=== PATIENT | female | born 1945 | race Caucasian/White ===

== ENCOUNTER → 2018-03-25 08:28 | Outpatient (CLI) | payer MEDICARE, OTHER, SELFPAY ==
[2018-03-25 08:58] LABS: Add Manual Diff / Slide Review NO; Basophils Percent Auto 0.2 % (0-2); Eosinophils Percent Auto 6.6 % (2-4); Hematocrit 36.6 % (36-46); Hemoglobin 12.6 g/dL (12.0-16.0); Lymphocytes Percent Auto 19.7 % (25-40); Mean Corpuscular HGB Conc 34.3 % (30-36); Mean Corpuscular Hemoglobin 29.8 PG (26-34); Mean Corpuscular Volume 86.7 fL (80-100); Monocytes Percent Auto 6.8 % (3-14); Neutrophils Absolute Auto 3300 /uL (3000-5900); Neutrophils Percent Auto 66.7 % (50-75); Platelet Count 242 X10^3/uL (150-400); Red Blood Cell Count 4.23 X10^6/uL (4.0-5.2); White Blood Cell Count 4.9 X10^3/uL (4.5-11.0)
[2018-03-25 09:23] LABS: Alanine Aminotransferase 44 IU/L (9-52); Albumin 4.4 g/dL (3.5-5.0); Albumin Globulin Ratio 1.3 (1.0-2.8); Alkaline Phosphatase 76 U/L (38-126); Aspartate Aminotransferase 46 IU/L (14-36); BUN Creatinine Ratio 21.3 (6-22); Bilirubin Total 0.4 mg/dL (0.2-1.3); Blood Urea Nitrogen 17 mg/dL (7-17); Calcium 9.6 mg/dL (8.4-10.2); Carbon Dioxide 26 mmol/L (22-32); Chloride 100 mmol/L (98-107); Estimated Glomerular Filt Rate > 60.0 mL/min (>60); Globulin 3.4 g/dL (1.7-4.1); Glucose 170 mg/dL (80-110); HEMOLYSIS < 15 (0-50); Potassium 4.1 mmol/L (3.4-5.1); Sodium 140 mmol/L (137-145); Total Protein 7.8 g/dL (6.3-8.2)
[2018-03-27 15:30] LABS: Cancer Antigen 27.29 27 U/mL (< 38)
== END ==
PROVIDERS: Family Provider Internal Medicine; PCP Internal Medicine; Visit Provider Nurse Practitioner Gerontology
DX: Z85.3 Personal history of malignant neoplasm of breast (principal)
CPT/HCPCS: 36415; 80053; 85025; 86300

== ENCOUNTER 2018-04-01 10:00 | Oncology outpatient (ONC) | payer MEDICARE, OTHER, SELFPAY ==
--- NOTE | 2018-04-01 08:30 | P.PNONC_ITS ---
Assessment and Plan (1) Breast cancer Status: Acute 04/01/18 08:30 The patient is a 73 year old Female who is being seen in the clinic 04/01/2018 for Stage IIIA T2 N2 M0 infiltrating ductal carcinoma on the right side with a 4.8-cm right-sided primary with 4 of 7 nodes positive. It was ER positive, HER- 2/yao negative.She underwent a right mastectomy and was treated with postoperaive AC and Abraxane followed by chest wall radiation. She has been taking letrozole for 9 years now. Plan at this point is to continue for 1 more year. Continue seeing Pain Management for grade 2 neuropathy. Continue compression sleeve as needed for right upper extremity lymphedema. No clinical signs or symptoms on exam today of disease recurrence. CBC, CMP unremarkable aside from mild transaminases. CA 27-29 is within normal limits at 27. Return to clinic in 6 months for provider visit CBC CMP CA 27-29. Most recent bone density screen was April 17, 2016 recommend repeat scan noting patient has had normal bone density. However she is postmenopausal on aromatase inhibitor therapy. 04/01/18 12:39 - Time Spent with Patient 35 mins PN -Subjective Interval history: The patient is a 73 year old Female who is being seen in the clinic 04/01/2018 for Stage IIIA T2 N2 M0 infiltrating ductal carcinoma on the right side with a 4.8-cm right-sided primary with 4 of 7 nodes positive. It was ER positive, HER- 2/yao negative.She underwent a right mastectomy and was treated with postoperaive AC and Abraxane followed by chest wall radiation. She started letrozole in 09/2008, now 9 years, and planned to continue for 10 years. She was treated with Zometa per the [place] protocol, BMD screenings have demonstrated no osteopenia or osteoporosis. Patient presents today with no concerns or complaints, overall feeling well. She does have chronic grade 2 neuropathy for which she sees Pain Management Clinic. She has tried gabapentin in the past she was not able to tolerate more than 1 or 2 tablets a day. Activity tolerance is good, she walks with a group 5 days a week. Appetite is excellent, weight is stable. No breast changed to report. No new lumps or bumps. No headaches. No change with bladder or bowel habits. She also continues to have chronic right upper extremity lymph edema. During the winter months she wears a compression sleeve which helps quite a bit. She states it is too hot in the summer to wear it. Most recent mammogram was January of 2018 which was without evidence of malignancy. Past Medical History The patient's past medical history is significant for: 1. Breast cancer as described above 2. 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 Lin at [facility] in 1997. This was not a thyroidectomy. 3. Hypertension. 4. Hyperlipidemia. 5. History of transaminase elevation. 6. Hypothyroidism. 7. Glucose intolerance. Results - Imaging Additional studies: Procedures Colonoscopy (06/17/10) Hysteroscopy (08/22/13) Other and unspecified total abdominal hysterectomy (09/08/13) Other dilation and curettage (12/08/11) Other removal of both ovaries and tubes at same operative episode (09/08/13) Home Medications and Allergies Home Medications Medication Instructions Recorded Confirmed Type [CMP Estriol cream] 0.2 % VAGINAL SEE INSTRUCTIONS #30 02/14/17 01/21/18 Rx gm letrozole [Femara] 2.5 mg PO QDAY #30 tab 04/13/17 01/21/18 Rx atenolol 50 mg PO QDAY #30 tab 05/17/17 01/21/18 Rx furosemide 20 mg PO QDAY #30 tab 05/17/17 01/21/18 Rx levothyroxine 100 mcg PO QAM #90 tab 06/14/17 01/21/18 Rx Test Strips - Freestyle str NA BID #200 06/20/17 Rx betamethasone, augmented 1 james TOPICAL SEE INSTRUCTIONS #15 07/20/17 01/21/18 Rx gm atorvastatin [Lipitor] 40 mg PO HS #90 tab 08/16/17 01/21/18 Rx clobetasol 0 TOPICAL QDAY #1 tube 11/28/17 01/21/18 Rx famciclovir 250 mg PO QDAY #30 tab 01/14/18 01/21/18 Rx gabapentin 100 mg capsule 100 mg PO BEDTIME 30 Days #30 cap 01/21/18 History hyoscyamine sulfate 0.125 mg tablet 0.125 mg PO BID-QID PRN 01/21/18 History metformin 500 mg tablet 1,000 mg PO BIDCC #360 tab 01/21/18 Rx lisinopril 5 mg PO QDAY #90 tab 03/14/18 Rx Allergies Allergy/AdvReac Type Severity Reaction Status Date / Time levofloxacin [LEVOFLOXACIN] Allergy Intermediate ITCHY HIVES Verified 01/21/18 11:36 vancomycin [VANCOMYCIN] Allergy Intermediate RASH/HIVES Verified 01/21/18 11:36 06/25/17 Sulfa (Sulfonamide Allergy Mild RASH Verified 01/21/18 11:36 Antibiotics) [SULFA (SULFONAMIDE ANTIBIOTICS)] adhesive [ADHESIVE] AdvReac Mild MAYORGA AND Verified 01/21/18 11:36 IRRITATION FROM TAPE oxycodone [OXYCODONE] AdvReac Mild MAKES HER Verified 01/21/18 11:36 SICK Exam Narrative: non toxic appearing - Constitutional positive no acute distress - Routine HEENT Exam Eye: Present: conjunctivae pink. Absent: conjunctival icterus, scleral injection ENT: Present: mucous membranes moist, oropharynx clear - Routine Neck Exam Present: supple. Absent: lymphadenopathy - Routine Chest/Breast/Axilla Exam Chest wall exam standard: Absent: tenderness, mass Breast: Present: right mastectomy. Absent: tenderness, induration, mass, swelling, erythema Axillae: Absent: lymphadenopathy, mass, tenderness - Routine Respiratory Exam Present: Clear to auscultation bilaterally. Absent: rales, rhonchi, wheezes - Routine Cardiovascular Exam Present: RRR, S1, S2. Absent: JVD - Routine Abdominal Exam Present: soft, normoactive bowel sounds. Absent: tenderness, distended, organomegaly Palpation/Percussion: Absent: hepatomegaly, splenomegaly - Routine Extremities Exam Absent: cyanosis, calf tenderness Comments: mild chronic RUE lymphedema - Routine Skin Exam Present: intact. Absent: petechiae
[2018-04-01 12:11] VITALS: BP 137/77; PULSE 80; RESP 18; TEMP 36.2; O2SAT 95
== END 2018-04-02 10:00 | disposition home or self-care (01) ==
LOC: ONC 07-10 09:13
PROVIDERS: Family Provider Internal Medicine; PCP Internal Medicine; Visit Provider Nurse Practitioner Gerontology
DX: C50.911 Malignant neoplasm of unspecified site of right female breast (principal); Z17.0 Estrogen receptor positive status [ER+]; G62.9 Polyneuropathy, unspecified; I89.0 Lymphedema, not elsewhere classified; Z79.811 Long term (current) use of aromatase inhibitors
CPT/HCPCS: 99214

== ENCOUNTER → 2018-04-15 07:16 | Outpatient (CLI) | payer MEDICARE, OTHER, SELFPAY ==
[2018-04-15 08:42] LABS: Hemoglobin A1C% w Est Avg Glu 6.9 % (4.0-6.0)
[2018-04-15 09:42] LABS: Creatinine Urine Random 14.5 mg/dL
[2018-04-15 09:49] LABS: Microalbumi Creatinin Ratio Ur 41.3 ug/mg CR (<30); Microalbumin Urine Random < 0.6 mg/dL (0-1.6)
== END ==
PROVIDERS: Family Provider Internal Medicine; PCP Internal Medicine; Visit Provider Internal Medicine
DX: E11.65 Type 2 diabetes mellitus with hyperglycemia (principal)
CPT/HCPCS: 36415; 82043; 82570; 83036

== ENCOUNTER → 2018-06-19 12:50 | Outpatient (CLI) | payer MEDICARE, OTHER, SELFPAY | PROVIDERS: Family Provider Internal Medicine; PCP Internal Medicine; Visit Provider Nurse Practitioner Gerontology | DX: E11.9 Type 2 diabetes mellitus without complications (principal); Z78.0 Asymptomatic menopausal state; Z85.3 Personal history of malignant neoplasm of breast; Z90.722 Acquired absence of ovaries, bilateral; Z87.891 Personal history of nicotine dependence | CPT/HCPCS: 77080 ==

== ENCOUNTER → 2018-07-22 07:32 | Outpatient (CLI) | payer MEDICARE, OTHER, SELFPAY ==
[2018-07-22 09:06] LABS: Hemoglobin A1C% w Est Avg Glu 7.4 % (4.0-6.0)
[2018-07-22 09:17] LABS: BUN Creatinine Ratio 23.8 (6-22); Blood Urea Nitrogen 19 mg/dL (7-17); Calcium 9.4 mg/dL (8.4-10.2); Carbon Dioxide 30 mmol/L (22-32); Chloride 99 mmol/L (98-107); Estimated Glomerular Filt Rate > 60.0 mL/min (>60); Glucose 144 mg/dL (80-110); HEMOLYSIS < 15 (0-50); Potassium 4.2 mmol/L (3.4-5.1); Sodium 142 mmol/L (137-145)
== END ==
PROVIDERS: Family Provider Internal Medicine; PCP Internal Medicine; Visit Provider Ophthalmology
DX: E11.9 Type 2 diabetes mellitus without complications (principal); Z01.812 Encounter for preprocedural laboratory examination; E11.65 Type 2 diabetes mellitus with hyperglycemia
CPT/HCPCS: 36415; 80048; 83036

== ENCOUNTER → 2018-08-19 13:22 | Outpatient (CLI) | payer MEDICARE, OTHER, SELFPAY ==
[2018-08-19 14:58] LABS: BUN Creatinine Ratio 21.3 (6-22); Blood Urea Nitrogen 17 mg/dL (7-17); Estimated Glomerular Filt Rate > 60.0 mL/min (>60)
== END ==
PROVIDERS: Family Provider Internal Medicine; PCP Internal Medicine; Visit Provider Ophthalmology
DX: Z01.812 Encounter for preprocedural laboratory examination (principal)
CPT/HCPCS: 36415; 82565; 84520

== ENCOUNTER → 2018-08-23 15:39 | Outpatient (CLI) | payer MEDICARE, OTHER, SELFPAY ==
--- NOTE | 2018-08-23 | DI.MRI.S_ITS ---
PROCEDURE: MR ORBITS FACE NECK WO/W CON INDICATIONS: VERICOSE VEINS TECHNIQUE: Noncontrast sagittal T1 spin echo, axial FLAIR, axial gradient echo, axial diffusion and ADC acquired through the brain. Coronal STIR, thin-slice axial T1 spin echo through the orbits. After the administration of contrast, thin-slice axial and coronal T1 spin echo with fat saturation through the orbits, axial T1 spin echo with fat saturation through the brain. COMPARISON: [facility], MR, MR ANGIO HEAD WO CON, 08/23/2018, 15:59. FINDINGS: Image quality: Excellent. Orbits: Globes are symmetrical. The optic nerves are normal in size, without abnormal signal or enhancement. No retrobulbar masses or fat abnormalities. The extra-ocular muscles are normal and symmetric in appearance. Lacrimal glands are normal. Optic chiasm is normal. Periorbital soft tissues appear normal. CSF spaces: Ventricles are normal in size and shape. Basal cisterns are patent. No extra-axial fluid collections. Brain: No intracranial bleeds or mass effects. No abnormal intracranial enhancement. Lowery-white matter interface is intact. Diffusion weighted images demonstrate no acute ischemic insults. Pituitary gland appears normal, without sellar or suprasellar masses. Brainstem appears normal. Normal intravascular flow voids are present. Skull and face: Calvarial marrow is normal in signal. Sinuses: Sinuses and mastoids are clear. IMPRESSION: 1. No acute intracranial process. 2. Orbits are unremarkable. No visualized abnormal vascular structures. Dictated by: Sharron Jett M.D. on 08/28/2018 at 13:29 Approved by: Sharron Jett M.D. on 08/28/2018 at 13:43
--- NOTE | 2018-08-23 17:26 | DI.MRI.S_ITS ---
PROCEDURE: MR ANGIO HEAD WO CON INDICATIONS: VARICOSE VEINS TECHNIQUE: Noncontrast axial 3-D [id number] MR angiogram, with 3-dimensional maximum intensity projection (MIP) reformats of the internal carotid arteries and posterior circulation then performed. COMPARISON: None. FINDINGS: Image quality: Excellent. Anterior circulation: Intracranial internal carotid arteries demonstrate normal size and intraluminal flow signal. The flow within the paired anterior cerebral arteries is normal and symmetric. The flow within the middle cerebral arteries is normal and symmetric. The anterior communicating artery is seen. No stenoses, occlusions, or aneurysms. Posterior circulation: Visualized portions of the vertebral arteries demonstrate normal caliber, and join to form a normal appearing basilar artery. The flow within the posterior cerebral arteries is normal and symmetric. No stenoses, occlusions, or aneurysms. IMPRESSION: 1. No areas of hemodynamically significant stenosis, vascular occlusion or aneurysmal dilation within the anterior or posterior circulation. Dictated by: Sharron Jett M.D. on 08/26/2018 at 8:22 Approved by: Sharron Jett M.D. on 08/26/2018 at 9:40
== END ==
PROVIDERS: Family Provider Internal Medicine; PCP Internal Medicine; Visit Provider Ophthalmology
DX: H05.122 Orbital myositis, left orbit (principal); I86.8 Varicose veins of other specified sites
CPT/HCPCS: 70543; 70544; A9579

== ENCOUNTER → 2018-09-11 08:30 | Outpatient (CLI) | payer MEDICARE, OTHER, SELFPAY ==
[2018-09-11 09:05] LABS: Add Manual Diff / Slide Review NO; Basophils Percent Auto 1.4 % (0-2); Eosinophils Percent Auto 3.7 % (2-4); Hemoglobin 13.1 g/dL (12.0-16.0); Mean Corpuscular HGB Conc 33.6 % (30-36); Mean Corpuscular Hemoglobin 29.3 PG (26-34); Mean Corpuscular Volume 87.4 fL (80-100); Monocytes Percent Auto 7.1 % (3-14); Neutrophils Absolute Auto 3500 /uL (1500-7000); Neutrophils Percent Auto 64.8 % (50-75); Platelet Count 269 X10^3/uL (150-400); Red Blood Cell Count 4.47 X10^6/uL (4.0-5.2); Red Cell Distribution Width 13.2 % (11.6-14.8); White Blood Cell Count 5.4 X10^3/uL (4.5-11.0)
[2018-09-11 09:12] LABS: Alanine Aminotransferase 49 IU/L (9-52); Albumin 4.7 g/dL (3.5-5.0); Albumin Globulin Ratio 1.4 (1.0-2.8); Alkaline Phosphatase 77 U/L (38-126); Aspartate Aminotransferase 42 IU/L (14-36); BUN Creatinine Ratio 22.5 (6-22); Bilirubin Total 0.4 mg/dL (0.2-1.3); Blood Urea Nitrogen 18 mg/dL (7-17); Calcium 9.7 mg/dL (8.4-10.2); Carbon Dioxide 28 mmol/L (22-32); Chloride 102 mmol/L (98-107); Estimated Glomerular Filt Rate > 60.0 mL/min (>60); Globulin 3.4 g/dL (1.7-4.1); Glucose 173 mg/dL (80-110); HEMOLYSIS < 15 (0-50); Potassium 4.6 mmol/L (3.4-5.1); Sodium 142 mmol/L (137-145); Total Protein 8.1 g/dL (6.3-8.2)
[2018-09-12 15:21] LABS: Cancer Antigen 27.29 31 U/mL (< 38)
== END ==
PROVIDERS: Family Provider Internal Medicine; PCP Internal Medicine; Visit Provider Nurse Practitioner Gerontology
DX: C50.911 Malignant neoplasm of unspecified site of right female breast (principal)
CPT/HCPCS: 36415; 80053; 85025; 86300

== ENCOUNTER → 2018-10-18 07:32 | Outpatient (CLI) | payer MEDICARE, OTHER, SELFPAY ==
[2018-10-18 08:45] LABS: Hemoglobin A1C% w Est Avg Glu 6.8 % (4.0-6.0)
[2018-10-18 08:54] LABS: BUN Creatinine Ratio 23.8 (6-22); Blood Urea Nitrogen 19 mg/dL (7-17); Calcium 10.1 mg/dL (8.4-10.2); Carbon Dioxide 29 mmol/L (22-32); Chloride 101 mmol/L (98-107); Estimated Glomerular Filt Rate > 60.0 mL/min (>60); Glucose 131 mg/dL (80-110); HEMOLYSIS < 15 (0-50); Potassium 4.8 mmol/L (3.4-5.1); Sodium 140 mmol/L (137-145)
== END ==
PROVIDERS: PCP Internal Medicine; Visit Provider Internal Medicine
DX: E11.65 Type 2 diabetes mellitus with hyperglycemia (principal); I10 Essential (primary) hypertension
CPT/HCPCS: 36415; 80048; 83036

== ENCOUNTER → 2018-12-02 15:12 | Outpatient (CLI) | payer MEDICARE, OTHER, SELFPAY ==
--- NOTE | 2018-12-02 | DI.MG.S_ITS ---
UNILATERAL LEFT DIGITAL SCREENING MAMMOGRAM 3D/2D WITH CAD POST MASTECTOMY: 12/02/2018 CLINICAL: Routine screening. Personal history of right breast cancer. Comparison is made to exams dated: 11/22/2017 mammogram, 11/16/2016 mammogram, 11/15/2015 mammogram, 11/12/2014 mammogram, and 11/11/2013 mammogram - [facility]. The tissue of left breast is heterogeneously dense. This may lower the sensitivity of mammography. Current study was also evaluated with a Computer Aided Detection (CAD) system. There is a mole marker on the left breast. No significant masses, calcifications, or other findings are seen in the breast. There has been no significant interval change. IMPRESSION: NEGATIVE There is no mammographic evidence of malignancy. A 1 year screening mammogram is recommended. This exam was interpreted at Station ID: [id number]. NOTE: For mammograms, a report in lay terms will be sent to the patient. Approximately 15% of breast malignancies will not be visualized mammographically. In the management of a palpable breast mass, a negative mammogram must not discourage biopsy of a clinically suspicious lesion. Electronically Signed By: Laureano osborne/penyoni:12/02/2018 18:52:27 copy to: Elise Mauro copy to: BECKI GARCIA letter sent: Normal Exam ACR BI-RADS Category 1: Negative 3341F
== END ==
PROVIDERS: PCP Internal Medicine; Visit Provider Internal Medicine
DX: Z12.31 Encounter for screening mammogram for malignant neoplasm of breast (principal); Z85.3 Personal history of malignant neoplasm of breast
CPT/HCPCS: 77063; 77067

== ENCOUNTER → 2019-01-31 07:31 | Outpatient (CLI) | payer MEDICARE, OTHER, SELFPAY ==
[2019-01-31 09:24] LABS: BUN Creatinine Ratio 21.1 (6-22); Blood Urea Nitrogen 19 mg/dL (7-17); Calcium 9.3 mg/dL (8.4-10.2); Carbon Dioxide 32 mmol/L (22-32); Chloride 98 mmol/L (98-107); Estimated Glomerular Filt Rate > 60.0 mL/min (>60); Glucose 145 mg/dL (80-110); HEMOLYSIS < 15 (0-50); Potassium 5.1 mmol/L (3.4-5.1); Sodium 138 mmol/L (137-145)
== END ==
PROVIDERS: PCP Internal Medicine; Visit Provider Internal Medicine
DX: E11.65 Type 2 diabetes mellitus with hyperglycemia (principal)
CPT/HCPCS: 36415; 80048; 83036

== ENCOUNTER → 2019-07-10 07:34 | Outpatient (CLI) | payer MEDICARE, OTHER, SELFPAY ==
[2019-07-10 08:51] LABS: Erythrocyte Sedimentation Rate 18 MM/HR (0-20); Hematocrit 27.3 % (36-46); Hemoglobin 9.3 g/dL (12.0-16.0); Mean Corpuscular Hemoglobin 28.8 PG (26-34); Mean Corpuscular Volume 84.9 fL (80-100); Red Blood Cell Count 3.22 X10^6/uL (4.0-5.2); Red Cell Distribution Width 13.4 % (11.6-14.8); White Blood Cell Count 3.4 X10^3/uL (4.5-11.0)
[2019-07-10 08:52] LABS: Add Manual Diff / Slide Review NO; Basophils Absolute Auto 0 /uL (0-100); Basophils Percent Auto 2.1 % (0-2); Eosinophils Absolute Auto 0 /uL (0-450); Eosinophils Percent Auto 4.1 % (2-4); Lymphocytes Absolute Auto 1 /uL (1100-4500); Lymphocytes Percent Auto 24.3 % (25-40); Monocytes Absolute Auto 0 /uL (0-900); Monocytes Percent Auto 10.3 % (3-14); Neutrophils Absolute Auto 2 /uL (1500-7000); Neutrophils Percent Auto 59.2 % (50-75); Platelet Count 164 X10^3/uL (150-400)
[2019-07-10 08:53] LABS: Alanine Aminotransferase 42 IU/L (9-52); Albumin 4.6 g/dL (3.5-5.0); Albumin Globulin Ratio 1.4 (1.0-2.8); Alkaline Phosphatase 75 U/L (38-126); Aspartate Aminotransferase 38 IU/L (14-36); Bilirubin Total 0.5 mg/dL (0.2-1.3); Blood Urea Nitrogen 16 mg/dL (7-17); Calcium 9.5 mg/dL (8.4-10.2); Carbon Dioxide 29 mmol/L (22-32); Chloride 101 mmol/L (98-107); Estimated Glomerular Filt Rate > 60.0 mL/min (>60); Globulin 3.3 g/dL (1.7-4.1); Glucose 130 mg/dL (80-110); HEMOLYSIS < 15 (0-50); Potassium 4.2 mmol/L (3.4-5.1); Sodium 141 mmol/L (137-145); Total Protein 7.9 g/dL (6.3-8.2)
[2019-07-10 11:36] LABS: Hemoglobin A1C% w Est Avg Glu 6.7 % (4.0-6.0)
== END ==
PROVIDERS: Hospitalist; PCP Internal Medicine; Visit Provider Internal Medicine
DX: E11.65 Type 2 diabetes mellitus with hyperglycemia (principal); M79.89 Other specified soft tissue disorders
CPT/HCPCS: 36415; 80053; 83036; 85025; 85651

== ENCOUNTER → 2019-07-14 14:06 | Outpatient (CLI) | payer MEDICARE, OTHER, SELFPAY ==
[2019-07-14 14:47] LABS: Hematocrit 37.7 % (36-46); Hemoglobin 12.7 g/dL (12.0-16.0)
[2019-07-14 15:44] LABS: HEMOLYSIS < 15 (0-50); Iron 74 ug/dL (37-170)
[2019-07-14 15:55] LABS: Percent Iron Saturation 18 % (15-50); Total Iron Binding Capacity 409 ug/dL (265-497); Transferrin 350 mg/dL (206-381)
[2019-07-14 16:02] LABS: Free T4, Direct Thyroxine 1.52 ng/dL (0.78-2.19)
[2019-07-14 16:16] LABS: Thyroid Stimulating Hormone 1.92 uIU/mL (0.47-4.68)
[2019-07-14 16:53] LABS: Folate > 20.0 ng/mL (2.76-20.0); Vitamin B12 662 pg/mL (239-931)
[2019-07-16 14:35] LABS: Haptoglobin 190 mg/dL (43-212)
== END ==
PROVIDERS: PCP Internal Medicine; Visit Provider Internal Medicine
DX: D64.9 Anemia, unspecified (principal); E11.9 Type 2 diabetes mellitus without complications; I10 Essential (primary) hypertension; E03.9 Hypothyroidism, unspecified
CPT/HCPCS: 36415; 82607; 82746; 83010; 83540; 83550; 84439; 84443; 85014; 85018; 85045

== ENCOUNTER → 2019-09-22 16:54 | Outpatient (CLI) | payer MEDICARE, OTHER, SELFPAY | PROVIDERS: PCP Internal Medicine; Visit Provider Specialist | DX: R32 Unspecified urinary incontinence (principal) | CPT/HCPCS: 87086 ==

== ENCOUNTER → 2019-11-20 08:31 | Outpatient (CLI) | payer MEDICARE, OTHER, SELFPAY ==
[2019-11-20 09:46] LABS: Hemoglobin A1C% w Est Avg Glu 6.7 % (4.0-6.0)
[2019-11-20 10:04] LABS: BUN Creatinine Ratio 16.7 (6-22); Blood Urea Nitrogen 14 mg/dL (7-17); Calcium 10.2 mg/dL (8.4-10.2); Carbon Dioxide 29 mmol/L (22-32); Chloride 100 mmol/L (98-107); Estimated Glomerular Filt Rate > 60.0 mL/min (>60); Glucose 162 mg/dL (80-110); HEMOLYSIS < 15 (0-50); Potassium 4.2 mmol/L (3.4-5.1); Sodium 140 mmol/L (137-145)
[2019-11-20 10:51] LABS: Free T4, Direct Thyroxine 1.29 ng/dL (0.78-2.19)
[2019-11-20 11:04] LABS: Thyroid Stimulating Hormone 4.39 uIU/mL (0.47-4.68)
== END ==
PROVIDERS: PCP Internal Medicine; Referring Provider Internal Medicine; Visit Provider Internal Medicine
DX: E03.9 Hypothyroidism, unspecified (principal); E11.9 Type 2 diabetes mellitus without complications; I10 Essential (primary) hypertension
CPT/HCPCS: 36415; 80048; 83036; 84439; 84443

== ENCOUNTER → 2020-02-07 08:08 | Outpatient (CLI) | payer MEDICARE, OTHER, SELFPAY ==
--- NOTE | 2020-02-07 08:10 | DI.MG.S_ITS ---
UNILATERAL LEFT DIGITAL SCREENING MAMMOGRAM 3D/2D WITH CAD POST MASTECTOMY: 02/07/2020 CLINICAL: Routine screening. Personal history of left breast cancer. Comparison is made to exams dated: 12/02/2018 mammogram, 11/22/2017 mammogram, and 11/16/2016 mammogram - [facility]. The tissue of left breast is heterogeneously dense. This may lower the sensitivity of mammography. Current study was also evaluated with a Computer Aided Detection (CAD) system. There are benign post operative findings in the left breast. There is a mole marker on the left breast. No significant masses, calcifications, or other findings are seen in the breast. There has been no significant interval change. IMPRESSION: There is no mammographic evidence of malignancy. A 1 year screening mammogram is recommended. This exam was interpreted at Station ID: [id number]. NOTE: For mammograms, a report in lay terms will be sent to the patient. Approximately 15% of breast malignancies will not be visualized mammographically. In the management of a palpable breast mass, a negative mammogram must not discourage biopsy of a clinically suspicious lesion. Electronically Signed By: Jose haider/rowan:02/09/2020 07:35:34 copy to: LAUREL MCKOY copy to: Jatin Camarena letter sent: Normal Exam ACR BI-RADS Category 2: Benign Finding(s) 3342F
== END ==
PROVIDERS: PCP Internal Medicine; Referring Provider Internal Medicine; Visit Provider Internal Medicine
DX: Z12.31 Encounter for screening mammogram for malignant neoplasm of breast (principal); Z85.3 Personal history of malignant neoplasm of breast
CPT/HCPCS: 77063; 77067

== ENCOUNTER → 2020-06-04 07:33 | Outpatient (CLI) | payer MEDICARE, OTHER, SELFPAY ==
[2020-06-04 09:26] LABS: Alanine Aminotransferase 26 IU/L (<35); Albumin 4.1 g/dL (3.5-5.0); Albumin Globulin Ratio 1.2 (1.0-2.8); Alkaline Phosphatase 75 U/L (38-126); Aspartate Aminotransferase 27 IU/L (14-36); BUN Creatinine Ratio 15.2 (6-22); Bilirubin Total 0.5 mg/dL (0.2-1.3); Blood Urea Nitrogen 12 mg/dL (7-17); Calcium 9.2 mg/dL (8.4-10.2); Carbon Dioxide 30 mmol/L (22-32); Chloride 102 mmol/L (98-107); Cholesterol 167 mg/dL (140-199); Estimated Glomerular Filt Rate > 60.0 mL/min (>60); Globulin 3.3 g/dL (1.7-4.1); Glucose 116 mg/dL (80-110); HDL Cholesterol 35 mg/dL (40-60); HEMOLYSIS < 15 (0-50); LDL Cholesterol Calculated 74 mg/dL (<100); Potassium 4.5 mmol/L (3.4-5.1); Sodium 141 mmol/L (137-145); Total Protein 7.4 g/dL (6.3-8.2); Triglycerides 292 mg/dL (35-150)
== END ==
PROVIDERS: PCP Internal Medicine; Referring Provider Internal Medicine; Visit Provider Internal Medicine
DX: E03.9 Hypothyroidism, unspecified (principal); E11.9 Type 2 diabetes mellitus without complications; E78.2 Mixed hyperlipidemia; I10 Essential (primary) hypertension
CPT/HCPCS: 36415; 80053; 80061; 83036

== ENCOUNTER 2020-07-23 14:05 | Emergency (ER) | payer MEDICARE, OTHER, SELFPAY ==
[2020-07-23] VITALS (10 sets, daily range): BP systolic 128–174; BP diastolic 59–74; PULSE 77–91; RESP 14; TEMP 38.6; O2SAT 90–97; BMI 24.3
[2020-07-23] MEDS: ACETAMINOPHEN 325 MG TABLET 975 MG PO (15:56)
[2020-07-23 16:01] LABS: Add Manual Diff / Slide Review NO; Basophils Absolute Auto 0 /uL (0-100); Basophils Percent Auto 0.4 % (0-2); Eosinophils Absolute Auto 0 /uL (0-450); Eosinophils Percent Auto 0.3 % (2-4); Hematocrit 36.4 % (36-46); Hemoglobin 12.1 g/dL (12.0-16.0); Lymphocytes Absolute Auto 700 /uL (1100-4500); Lymphocytes Percent Auto 7.2 % (25-40); Mean Corpuscular HGB Conc 33.2 % (30-36); Mean Corpuscular Hemoglobin 28.9 PG (26-34); Mean Corpuscular Volume 87.1 fL (80-100); Monocytes Absolute Auto 500 /uL (0-900); Monocytes Percent Auto 4.8 % (3-14); Neutrophils Absolute Auto 8700 /uL (1500-7000); Neutrophils Percent Auto 87.3 % (50-75); Platelet Count 223 X10^3/uL (150-400); Red Blood Cell Count 4.18 X10^6/uL (4.0-5.2); Red Cell Distribution Width 12.7 % (11.6-14.8)
[2020-07-23 16:18] LABS: Lactate (Lactic Acid) 1.8 mmol/L (0.7-2.1)
[2020-07-23 16:20] LABS: Alanine Aminotransferase 26 IU/L (<35); Albumin 4.3 g/dL (3.5-5.0); Albumin Globulin Ratio 1.2 (1.0-2.8); Alkaline Phosphatase 65 U/L (38-126); Aspartate Aminotransferase 29 IU/L (14-36); BUN Creatinine Ratio 20.9 (6-22); Bilirubin Total 0.7 mg/dL (0.2-1.3); Blood Urea Nitrogen 18 mg/dL (7-17); Calcium 9.1 mg/dL (8.4-10.2); Carbon Dioxide 30 mmol/L (22-32); Chloride 101 mmol/L (98-107); Estimated Glomerular Filt Rate > 60.0 mL/min (>60); Globulin 3.6 g/dL (1.7-4.1); Glucose 121 mg/dL (80-110); HEMOLYSIS < 15 (0-50); Potassium 3.8 mmol/L (3.4-5.1); Sodium 136 mmol/L (137-145); Total Protein 7.9 g/dL (6.3-8.2)
--- NOTE | 2020-07-23 16:24 | ED_ITS ---
HPI - Extremity Problem General Chief complaint: Extremity Problem,Nontraumatic Stated complaint: R arm swelling and red, fever Time Seen by Provider: 07/23/20 15:43 Source: patient Mode of arrival: Ambulatory Limitations: no limitations History of Present Illness HPI Narrative: Patient is a 75-year-old female history of breast cancer and recurring right arm cellulitis. She said she develops fever right arm swelling and redness last evening. She is currently febrile here at 101.5. She has no numbness or tingling. She denies any chest pain cough shortness of breath or abdominal pain. She says this is similar to all of her previous episodes. She can not remember what antibiotic she was treated with previously however it was a pill and she got to be home. She also has history of sepsis. MD Complaint: extremity swelling Onset (ago): day(s) (1) Location: right and upper extremity Related Data Previous Rx's Medication Instructions Recorded [CMP Estriol cream] 1 applictn VAGINAL .COMPLEX #30 09/18/18 gram hyoscyamine sulfate 0.125 mg See Rx Instructions .ROUTE 08/14/19 sublingual tablet .COMPLEX #30 each atenolol 50 mg tablet 50 mg PO QDAY #90 tab 09/08/19 estradiol 10 mcg vaginal tablet 10 mcg VAG 2XW #24 tab 10/14/19 gabapentin 100 mg capsule 300 mg PO BEDTIME #270 cap 11/17/19 betamethasone, augmented 0.05 % 1 applictn TOPICAL SEE 12/26/19 topical ointment INSTRUCTIONS #50 gram metformin 500 mg tablet 1,000 mg PO BID #360 tab 01/12/20 famciclovir 250 mg tablet 250 mg PO .qd #30 tab 02/18/20 atorvastatin 40 mg tablet 40 mg PO HS #90 tab 06/11/20 furosemide 20 mg tablet 20 mg PO DAILY #90 tab 06/11/20 levothyroxine 100 mcg tablet See Rx Instructions .ROUTE 06/11/20 .COMPLEX #90 tablet lisinopril 20 mg tablet 20 mg PO DAILY #90 tab 06/11/20 doxycycline hyclate 100 mg PO BID #20 cap 07/23/20 Allergies Allergy/AdvReac Type Severity Reaction Status Date / Time levofloxacin [LEVOFLOXACIN] Allergy Intermediate ITCHY HIVES Verified 07/23/20 14:28 vancomycin [VANCOMYCIN] Allergy Intermediate RASH/HIVES Verified 07/23/20 14:28 06/25/17 Sulfa (Sulfonamide Allergy Mild RASH Verified 07/23/20 14:28 Antibiotics) [SULFA (SULFONAMIDE ANTIBIOTICS)] adhesive [ADHESIVE] AdvReac Mild MAYORGA AND Verified 07/23/20 14:28 IRRITATION FROM TAPE oxycodone [OXYCODONE] AdvReac Mild MAKES HER Verified 07/23/20 14:28 SICK Review of Systems Review of Systems Narrative: GENERAL: Denies chills, fatigue, malaise, fever, sweats, travel HEENT: Denies sinus pain, ear pain, sore throat, difficulty swallowing, neck pain RESPIRATORY: Denies dyspnea, cough, wheezing, hemoptysis, sputum. CARDIOVASCULAR: Denies chest pain, palpitations, orthopnea, edema GASTROINTESTINAL: Denies nausea, vomiting, abdominal pain, diarrhea, constipation, melena. : Denies dysuria, frequency, incontinence, hematuria, urinary retention, flank pain. MUSCULOSKELETAL: Denies weakness, joint pain, or bony pain SKIN: See HPI NEUROLOGIC: Denies weakness, dizziness, headache, numbness, change in speech, confusion PSYCHIATRIC: No concerning psychosocial issues. 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) Irritable bowel syndrome (Chronic 09/22/14) Lymphedema of upper extremity (Chronic 07/24/14) Measles (Resolved) Mixed hyperlipidemia (Chronic 06/25/15) Peripheral neuropathy (Chronic) Personal history of breast cancer (Chronic 2007) Rubella (Resolved) Type 2 diabetes mellitus with hyperglycemia, without long-term current use of insulin (Chronic 01/15/17) Vulvovaginitis (Chronic 04/04/17) Surgical History Anesthesia (Resolved) History of cataract surgery (Resolved 2007) History of colonoscopy (Resolved 06/2010) History of thyroidectomy (Resolved 05/1988) History of total mastectomy (Resolved 11/28/07) Status post delivery (Resolved 1964) Status post delivery (Resolved 1969) Status post hysterectomy (Resolved 09/09/13) Family History Brother Age: 91 Hypertension Child Age: 50 Hypothyroidism Father Coronary atherosclerosis Hypertension High cholesterol Aneurysm Mother Hypertension Liver disease Grandmother Diabetes mellitus Social History marital status: number of children: 2 household members: spouse lives independently: Yes caregiver/support person: No housing: house pets and animals: Yes education level: college (4 years) 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, 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: [employer] travel history: over 6 months ago ([place], no longer travel) leisure activities: exercise (Walking), 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, TV) Smoking Status: Former smoker Tobacco: How many years used: 20 Smokeless tobacco user: other (Cigarettes) quit status: quit date established (Unsure of date.) second hand exposure: Yes alcohol intake: current (Very little.) substance use type: does not use Smoking Status: Former smoker alcohol intake frequency: holidays/special occasions only Substance Use Type: does not use Exam Initial Vital Signs Initial Vital Signs: Vital Signs Temperature 101.5 F H 07/23/20 14:26 Pulse Rate 89 07/23/20 14:26 Respiratory Rate 14 07/23/20 14:26 Blood Pressure 174/74 H 07/23/20 14:26 Pulse Oximetry 95 07/23/20 14:26 GENERAL: Well-appearing, well-nourished and in no acute distress. HEENT: Head atraumatic,EOMI, pupils reactive, face symmetric, moist mucous membranes CARDIOVASCULAR: Regular rate and rhythm without murmurs, rubs or gallops. RESPIRATORY: Breath sounds equal bilaterally, no wheezes rales or rhonchi. ABDOMEN: Soft, nontender. Normoactive bowel sounds all 4 quadrants. No guarding or rebound. EXTREMITIES: Normal range of motion, no clubbing or edema. Neurovascularly intact NEUROLOGICAL: Alert and oriented x4.Normal gait and speech. SKIN: Right arm erythema quite diffuse blanchable Course Orders Ordered: Discontinued Medications Acetaminophen (Tylenol) 975 mg PO NOW ONE Stop: 07/23/20 15:47 Last Admin: 07/23/20 15:56 Dose: 975 mg Documented by: ABDELRAHMAN Vital Signs Vital signs: Vital Signs - 8 hr 07/23/20 14:26 07/23/20 15:19 07/23/20 15:55 Temperature 101.5 F H Pulse Rate 89 91 H 86 Respiratory Rate 14 Blood Pressure 174/74 H 146/66 H Pulse Oximetry 95 93 90 L 07/23/20 15:56 07/23/20 16:00 07/23/20 16:21 Temperature Pulse Rate 84 84 85 Respiratory Rate Blood Pressure 143/64 H 158/67 H Pulse Oximetry 92 96 97 07/23/20 16:30 07/23/20 16:31 07/23/20 17:00 Temperature Pulse Rate 81 77 77 Respiratory Rate Blood Pressure 128/60 Pulse Oximetry 94 94 92 07/23/20 17:01 Temperature Pulse Rate 80 Respiratory Rate Blood Pressure 134/59 L Pulse Oximetry 94 MDM - Extremity (Nontraumatic) Lab Data Attestation: I reviewed the patient's lab results. Result diagrams: 07/23/20 15:54 07/23/20 15:54 Labs: Lab Results 07/23/20 07/23/20 07/23/20 Range/Units 15:54 15:54 15:54 WBC 10.0 (4.5-11.0) X10^3/uL RBC 4.18 (4.0-5.2) X10^6/uL Hgb 12.1 (12.0-16.0) g/dL Hct 36.4 (36-46) % MCV 87.1 (80-100) fL MCH 28.9 (26-34) PG MCHC 33.2 (30-36) % RDW 12.7 (11.6-14.8) % Plt Count 223 (150-400) X10^3/uL Neut % (Auto) 87.3 H (50-75) % Lymph % (Auto) 7.2 L (25-40) % Jennings % (Auto) 4.8 (3-14) % Eos % (Auto) 0.3 L (2-4) % Baso % (Auto) 0.4 (0-2) % Neut # (Auto) 8700 H (0196-5198) /uL Lymph # (Auto) 700 L (0384-0061) /uL Jennings # (Auto) 500 (0-900) /uL Eos # (Auto) 0 (0-450) /uL Baso # (Auto) 0 (0-100) /uL Sodium 136 L (137-145) mmol/L Potassium 3.8 (3.4-5.1) mmol/L Chloride 101 (98-107) mmol/L Carbon Dioxide 30 (22-32) mmol/L BUN 18 H (7-17) mg/dL Creatinine 0.86 (0.52-1.04) mg/dL Estimated GFR > 60.0 (>60) mL/min BUN/Creatinine Ratio 20.9 (6-22) Glucose 121 H (80-110) mg/dL Lactate (0.7-2.1) mmol/L Calcium 9.1 (8.4-10.2) mg/dL Total Bilirubin 0.7 (0.2-1.3) mg/dL AST 29 (14-36) IU/L ALT 26 (<35) IU/L Alkaline Phosphatase 65 (38-126) U/L Total Protein 7.9 (6.3-8.2) g/dL Albumin 4.3 (3.5-5.0) g/dL Globulin 3.6 (1.7-4.1) g/dL Albumin/Globulin Ratio 1.2 (1.0-2.8) Procalcitonin < 0.05 (<0.5) ng/mL Urine Color Urine Appearance Urine pH (4.5-8.0) Ur Specific [place] (1.000-1.035) Urine Protein (Negative) Urine Glucose (UA) (Negative) g/dL Urine Ketones (NEGATIVE) Urine Occult Blood (Negative) Urine Nitrate (Negative) Urine Bilirubin (NEGATIVE) Urine Urobilinogen (0.2) E.U./dL Ur Leukocyte Esterase (NEGATIVE) Urine RBC (0-5/HPF) Urine WBC (0-5/HPF) Ur Squamous Epith Cells (0-5/HPF) Urine Bacteria (None) Urine Mucus (Negative) Ur Culture Indicated? 07/23/20 07/23/20 Range/Units 15:54 16:24 WBC (4.5-11.0) X10^3/uL RBC (4.0-5.2) X10^6/uL Hgb (12.0-16.0) g/dL Hct (36-46) % MCV (80-100) fL MCH (26-34) PG MCHC (30-36) % RDW (11.6-14.8) % Plt Count (150-400) X10^3/uL Neut % (Auto) (50-75) % Lymph % (Auto) (25-40) % Jennings % (Auto) (3-14) % Eos % (Auto) (2-4) % Baso % (Auto) (0-2) % Neut # (Auto) (1347-8852) /uL Lymph # (Auto) (3480-2534) /uL Jennings # (Auto) (0-900) /uL Eos # (Auto) (0-450) /uL Baso # (Auto) (0-100) /uL Sodium (137-145) mmol/L Potassium (3.4-5.1) mmol/L Chloride (98-107) mmol/L Carbon Dioxide (22-32) mmol/L BUN (7-17) mg/dL Creatinine (0.52-1.04) mg/dL Estimated GFR (>60) mL/min BUN/Creatinine Ratio (6-22) Glucose (80-110) mg/dL Lactate 1.8 (0.7-2.1) mmol/L Calcium (8.4-10.2) mg/dL Total Bilirubin (0.2-1.3) mg/dL AST (14-36) IU/L ALT (<35) IU/L Alkaline Phosphatase (38-126) U/L Total Protein (6.3-8.2) g/dL Albumin (3.5-5.0) g/dL Globulin (1.7-4.1) g/dL Albumin/Globulin Ratio (1.0-2.8) Procalcitonin (<0.5) ng/mL Urine Color Yellow Urine Appearance Slightly cloudy Urine pH 5.0 (4.5-8.0) Ur Specific [place] 1.020 (1.000-1.035) Urine Protein 1+ H (Negative) Urine Glucose (UA) Negative (Negative) g/dL Urine Ketones Negative (NEGATIVE) Urine Occult Blood 1+ H (Negative) Urine Nitrate Negative (Negative) Urine Bilirubin Negative (NEGATIVE) Urine Urobilinogen 0.2 (0.2) E.U./dL Ur Leukocyte Esterase 1+ H (NEGATIVE) Urine RBC 1-5/hpf (0-5/HPF) Urine WBC 30-100/hpf H (0-5/HPF) Ur Squamous Epith Cells 1-5 /hpf (0-5/HPF) Urine Bacteria Few (2-10) H (None) Urine Mucus 2+ H (Negative) Ur Culture Indicated? Specimen cultured Urine Dip Bedside Urine Glucose Negative Bedside Urine Bilirubin + 1 Bedside Urine Ketone - Negative Urine Specific [place] 1.025 Bedside Urine Occult Blood +/- Bedside Urine pH 6.0 Bedside Urine Protein + 30 Bedside Urine Urobilinogen - Negative Bedside Urine Nitrite - Negative Bedside Urine Leukocytes + 70 Esterase MDM Narrative Medical decision making narrative: The patient overall appears well and does not appear septic. She was febrile but no leukocytosis she has an obvious right arm cellulitis which she has had previously. She is allergic to sulfa vancomycin and Levaquin. Will start on doxycycline. She has been through this before and understands to return to the ER if it worsens. Discharge Plan Departure Patient Disposition: Home Clinical Impression: Cellulitis of arm, right Discharge Date/Time: 07/23/20 17:33 Instructions: DI for Cellulitis -- Adult Activity Restrictions/Additional Instructions: *You have been diagnosed with cellulitis right arm *What to do: At this time he can be treated at home with antibiotics. However please monitor this closely and if it is worsening return to the ER immediately *Continue to take medications as directed Doxycycline 100 mg twice a day for 10 days-->SENT TO [place] *Follow up with your primary care provider in 2-3 days *Return to ER if you should have increasing redness, swelling, pain or any new, worsening or concerning symptoms Prescriptions: New doxycycline hyclate 100 mg capsule 100 mg PO BID Qty: 20 RF: 0 No Action [CMP Estriol cream] 0.2 % 1 applictn Vaginal .COMPLEX Qty: 30 RF: 3 hyoscyamine sulfate 0.125 mg tablet, sublingual See Rx Instructions .ROUTE .COMPLEX Qty: 30 RF: 4 atenolol 50 mg tablet 50 mg PO QDAY Qty: 90 RF: 3 estradiol [Vagifem] 10 mcg tablet 10 mcg VAG 2XW Qty: 24 RF: 3 gabapentin 100 mg capsule 300 mg PO BEDTIME Qty: 270 RF: 3 betamethasone, augmented 0.05 % ointment 1 applictn Topical SEE INSTRUCTIONS Qty: 50 RF: 1 metformin 500 mg tablet 1,000 mg PO BID Qty: 360 RF: 3 famciclovir 250 mg tablet 250 mg PO .qd Qty: 30 RF: 6 lisinopril 20 mg tablet 20 mg PO DAILY Qty: 90 RF: 3 furosemide 20 mg tablet 20 mg PO DAILY Qty: 90 RF: 3 atorvastatin [Lipitor] 40 mg tablet 40 mg PO HS Qty: 90 RF: 3 levothyroxine 100 mcg tablet See Rx Instructions .ROUTE .COMPLEX Qty: 90 RF: 1 Referrals: Jatin Camarena MD [Primary Care Provider] -
[2020-07-23 16:35] LABS: Procalcitonin < 0.05 ng/mL (<0.5)
[2020-07-23 17:33] LABS: Bilirubin Urine UA NEGATIVE (NEGATIVE); Color Urine UA YELLOW; Glucose Urine UA NEGATIVE (Negative); Ketones Urine UA NEGATIVE (NEGATIVE); Leukocyte Esterase Urine UA 1+ (NEGATIVE); Nitrite Urine UA NEGATIVE (Negative); Occult Blood Urine UA 1+ (Negative); Protein Urine UA 1+ (Negative); Urobilinogen Urine UA 0.2 E.U./dL (0.2)
[2020-07-23 17:40] LABS: Appearance Urine UA Slightly Cloudy
[2020-07-23 17:41] LABS: RBC Urine 1-5/HPF (0-5/HPF); Squamous Epithelial Cell Urine 1-5 /HPF (0-5/HPF); WBC Urine 30-100/HPF (0-5/HPF)
[2020-07-23 17:42] LABS: Bacteria Urine Few (2-10); Culture Indicated Urine Specimen Cultured; Mucus Urine 2+ (Negative)
== END 2020-07-23 17:33 | disposition home or self-care (01) ==
PROVIDERS: Emergency Provider Emergency Medicine; PCP Internal Medicine
DX: L03.113 Cellulitis of right upper limb (principal)
CPT/HCPCS: 36415; 80053; 81001; 81003; 83605; 84145; 85025; 87040; 87077; 87086; 87186; 99283

== ENCOUNTER → 2020-10-07 14:57 | Outpatient (CLI) | payer MEDICARE, SELFPAY ==
[2020-10-07] MEDS: COVID-19 VACC #1, MRNA(MOD) 100 MCG/0.5 ML VIAL IM (15:03)
== END ==
PROVIDERS: PCP Internal Medicine; Visit Provider Internal Medicine
DX: Z23 Encounter for immunization (principal)
CPT/HCPCS: 0011A; 91301

== ENCOUNTER → 2020-11-04 15:53 | Outpatient (CLI) | payer MEDICARE, SELFPAY ==
[2020-11-04] MEDS: COVID-19 VACC #2, MRNA(MOD) 100 MCG/0.5 ML VIAL IM (15:55)
== END ==
PROVIDERS: PCP Internal Medicine; Visit Provider Internal Medicine
DX: Z23 Encounter for immunization (principal)
CPT/HCPCS: 0012A; 91301

== ENCOUNTER → 2020-11-11 15:34 | Outpatient (CLI) | payer MEDICARE, OTHER, SELFPAY ==
[2020-11-11 16:17] LABS: BUN Creatinine Ratio 27.8 (6-22); Blood Urea Nitrogen 20 mg/dL (7-17); Calcium 9.5 mg/dL (8.4-10.2); Carbon Dioxide 31 mmol/L (22-32); Chloride 103 mmol/L (98-107); Estimated Glomerular Filt Rate > 60.0 mL/min (>60); Glucose 157 mg/dL (80-110); HEMOLYSIS < 15 (0-50); Sodium 141 mmol/L (137-145)
[2020-11-11 16:24] LABS: Hemoglobin A1C% w Est Avg Glu 6.9 % (4.0-6.0)
== END ==
PROVIDERS: PCP Internal Medicine; Referring Provider Internal Medicine; Visit Provider Internal Medicine
DX: E11.9 Type 2 diabetes mellitus without complications (principal); I10 Essential (primary) hypertension
CPT/HCPCS: 36415; 80048; 83036

== ENCOUNTER 2021-01-02 11:23 | Emergency (ER) | payer MEDICARE, OTHER, SELFPAY ==
[2021-01-02 11:35] VITALS: BP 181/79; PULSE 86; RESP 20; TEMP 37.9; O2SAT 97
[2021-01-02 12:00] VITALS: PULSE 85; RESP 25
[2021-01-02 12:01] VITALS: BP 181/79; PULSE 82; RESP 18; TEMP 37.9; O2SAT 95; BMI 23.0
--- NOTE | 2021-01-02 12:10 | ED_ITS ---
HPI - General Adult General Chief complaint: Fever Stated complaint: temperature over 102, possible cellulitis Time Seen by Provider: 01/02/21 11:55 Source: patient Mode of arrival: Ambulatory Limitations: no limitations History of Present Illness HPI narrative: Patient is a 75-year-old female. She has chronic right arm lymphedema secondary to axillary node resection secondary to breast cancer. She states that she has swelling in her right arm at baseline but every so often she develops worsening swelling and redness. Last time this happened was the end of last year. She was diagnosed with a skin infection was given antibiotics. That event completely resolved. She has also had other cellulitis in her right arm where she had to be admitted to the hospital for IV antibiotics. She states that this morning she started having fevers and chills. Yesterday had redness in her right arm. No tingling in her hand. Did take some aspirin earlier today. Is continue to take the rest of her medications. She has not currently on chemotherapy. Related Data Previous Rx's Medication Instructions Recorded [CMP Estriol cream] 1 applictn VAGINAL .COMPLEX #30 09/18/18 gram hyoscyamine sulfate 0.125 mg See Rx Instructions .ROUTE 08/14/19 sublingual tablet .COMPLEX #30 each betamethasone, augmented 0.05 % 1 applictn TOPICAL SEE 12/26/19 topical ointment INSTRUCTIONS #50 gram atorvastatin 40 mg tablet 40 mg PO HS #90 tab 06/11/20 furosemide 20 mg tablet 20 mg PO DAILY #90 tab 06/11/20 clobetasol 0.05 % topical ointment See Rx Instructions .ROUTE 08/23/20 .COMPLEX #30 gram atenolol 50 mg tablet 50 mg PO QDAY #90 tab 08/31/20 lisinopril 20 mg tablet 40 mg PO DAILY #180 tab 09/17/20 famciclovir 250 mg tablet 250 mg PO DAILY #30 tab 10/04/20 gabapentin 100 mg capsule 100 mg PO BEDTIME #90 cap 10/26/20 levothyroxine 100 mcg tablet See Rx Instructions .ROUTE 11/01/20 .COMPLEX #90 tablet amlodipine 10 mg tablet 10 mg PO DAILY #90 tab 11/16/20 metformin 500 mg tablet 1,000 mg PO BID #360 tab 12/27/20 doxycycline hyclate 100 mg PO BID 7 Days #14 tab 01/02/21 Allergies Allergy/AdvReac Type Severity Reaction Status Date / Time levofloxacin [LEVOFLOXACIN] Allergy Intermediate ITCHY HIVES Verified 11/16/20 14:57 vancomycin [VANCOMYCIN] Allergy Intermediate RASH/HIVES Verified 11/16/20 14:57 06/25/17 Sulfa (Sulfonamide Allergy Mild RASH Verified 11/16/20 14:57 Antibiotics) [SULFA (SULFONAMIDE ANTIBIOTICS)] adhesive [ADHESIVE] AdvReac Mild MAYORGA AND Verified 11/16/20 14:57 IRRITATION FROM TAPE oxycodone [OXYCODONE] AdvReac Mild MAKES HER Verified 11/16/20 14:57 SICK Review of Systems Constitutional Constitutional: Reports chills, Denies fatigue and Reports fever(s) Eyes Eyes: Denies change in vision ENT Ears, Nose, Mouth, and Throat: Denies sore throat Cardiovascular Cardiovascular: Denies chest pain and Denies dyspnea Respiratory Respiratory: Denies dyspnea Gastrointestinal Gastrointestinal: Denies abdominal pain, Denies nausea and Denies vomiting Genitourinary Genitourinary: Denies dysuria Genitourinary: Denies dysuria Musculoskeletal Musculoskeletal: Denies arthralgias, Denies myalgias and Denies tingling Integumentary/Breasts Comments: Right arm redness Neurologic Neurologic: Denies behavioral changes and Denies tingling Psychiatric Psychiatric: Denies behavioral changes Endocrine Endocrine: Denies fatigue Hematologic/Lymphatic On Anticoagulants: No Allergic/Immunologic Allergic/Immunologic: Denies urticaria Patient History Medical History (Updated 01/02/21 @ 12:59 by Vadim Mansfield DO) Abnormal LFTs (04/21/11) Acquired hypothyroidism (12/24/12) Cataract (2007) Chicken pox Controlled type 2 diabetes mellitus Diverticular disease (06/2010) Eczema (~1950) Essential hypertension (04/21/11) 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) Irritable bowel syndrome (09/22/14) Lymphedema of upper extremity (07/24/14) Measles Mixed hyperlipidemia (06/25/15) Peripheral neuropathy Personal history of breast cancer (2007) Rubella Type 2 diabetes mellitus with hyperglycemia, without long-term current use of insulin (01/15/17) Vulvovaginitis (04/04/17) Surgical History Anesthesia History of cataract surgery (2007) History of colonoscopy (06/2010) History of thyroidectomy (05/1988) History of total mastectomy (11/28/07) Status post delivery (1964) Status post delivery (1969) Status post hysterectomy (09/09/13) Family History Brother Age: 91 Hypertension Child Age: 50 Hypothyroidism Father Coronary atherosclerosis Hypertension High cholesterol Aneurysm Mother Hypertension Liver disease Grandmother Diabetes mellitus Social History marital status: number of children: 2 household members: spouse lives independently: Yes caregiver/support person: No housing: house pets and animals: Yes education level: college (4 years) 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, 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: [employer] travel history: over 6 months ago ([place], no longer travel) leisure activities: exercise (Walking), 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, TV) Smoking Status: Former smoker Tobacco: How many years used: 20 Smokeless tobacco user: other (Cigarettes) quit status: quit date established (Unsure of date.) second hand exposure: Yes alcohol intake: current (Very little.) substance use type: does not use Smoking Status: Former smoker alcohol intake frequency: holidays/special occasions only Substance Use Type: does not use Exam Initial Vital Signs Initial Vital Signs: Vital Signs Temperature 100.3 F H 01/02/21 11:35 Pulse Rate 86 01/02/21 11:35 Respiratory Rate 20 01/02/21 11:35 Blood Pressure 181/79 H 01/02/21 11:35 Pulse Oximetry 97 01/02/21 11:35 Const General: cooperative and comfortable Limitations: mental status not altered HENMT Head: normal to inspection and normocephalic Eyes General: appearance normal, both eyes and all related structures Resp Effort & Inspection: normal respiratory effort Cardio Pulses: radial pulses present on the right Skin Other: Patient has redness on her right arm from her wrist to just proximal to the elbow. There are no breaks in the skin. No vesicles. No pustules. Neuro General: patient alert and patient awake Cognition: normal cognition Speech: speech normal Extrem General: normal to inspection and capillary refill normal Psych Appearance: grossly normal and well kempt Course Orders Ordered: ED Orders 01/02/21 12:20 Basic Metabolic Panel Stat Complete Blood Count AUTO DIFF Stat Lactate (Lactic Acid) Stat Procalcitonin Stat 01/02/21 13:00 Blood Culture Stat Discontinued Medications Acetaminophen (Acetaminophen 325 Mg Tablet) 650 mg PO NOW ONE Stop: 01/02/21 12:14 Last Admin: 01/02/21 12:42 Dose: 650 mg Documented by: JACINTO Doxycycline Hyclate (Doxycycline Hyclate 100 Mg Tablet) 100 mg PO NOW ONE Stop: 01/02/21 12:15 Last Admin: 01/02/21 12:41 Dose: 100 mg Documented by: JACINTO Vital Signs Vital signs: Vital Signs - 8 hr 01/02/21 11:35 01/02/21 12:00 01/02/21 12:01 Temperature 100.3 F H 100.3 F H Pulse Rate 86 85 82 Respiratory Rate 20 25 H 18 Blood Pressure 181/79 H 181/79 H Pulse Oximetry 97 95 01/02/21 12:45 01/02/21 12:46 01/02/21 13:00 Temperature 99.8 F H Pulse Rate 79 75 75 Respiratory Rate 19 18 15 Blood Pressure 151/69 H 132/62 Pulse Oximetry 93 93 94 Medical Decision Making Lab Data Lab results reviewed: Yes I reviewed the patient's lab results. Result diagrams: 01/02/21 12:20 01/02/21 12:20 Labs: Lab Results 01/02/21 01/02/21 01/02/21 Range/Units 12:20 12:20 12:20 WBC 8.1 (4.5-11.0) X10^3/uL RBC 4.18 (4.0-5.2) X10^6/uL Hgb 12.1 (12.0-16.0) g/dL Hct 35.6 L (36-46) % MCV 85.3 (80-100) fL MCH 29.0 (26-34) PG MCHC 34.0 (30-36) % RDW 13.5 (11.6-14.8) % Plt Count 220 (150-400) X10^3/uL Neut % (Auto) 83.6 H (50-75) % Lymph % (Auto) 8.1 L (25-40) % [place] % (Auto) 6.4 (3-14) % Eos % (Auto) 1.0 L (2-4) % Baso % (Auto) 0.9 (0-2) % Neut # (Auto) 6800 (6313-7797) /uL Lymph # (Auto) 700 L (4001-2151) /uL [place] # (Auto) 500 (0-900) /uL Eos # (Auto) 100 (0-450) /uL Baso # (Auto) 100 (0-100) /uL Sodium 134 L (137-145) mmol/L Potassium 3.7 (3.4-5.1) mmol/L Chloride 99 (98-107) mmol/L Carbon Dioxide 25 (22-32) mmol/L BUN 17 (7-17) mg/dL Creatinine 0.87 (0.52-1.04) mg/dL Estimated GFR > 60.0 (>60) mL/min BUN/Creatinine Ratio 19.5 (6-22) Glucose 138 H (80-110) mg/dL Lactate 2.1 (0.7-2.1) mmol/L Calcium 9.3 (8.4-10.2) mg/dL Procalcitonin (<0.5) ng/mL 01/02/21 Range/Units 12:20 WBC (4.5-11.0) X10^3/uL RBC (4.0-5.2) X10^6/uL Hgb (12.0-16.0) g/dL Hct (36-46) % MCV (80-100) fL MCH (26-34) PG MCHC (30-36) % RDW (11.6-14.8) % Plt Count (150-400) X10^3/uL Neut % (Auto) (50-75) % Lymph % (Auto) (25-40) % [place] % (Auto) (3-14) % Eos % (Auto) (2-4) % Baso % (Auto) (0-2) % Neut # (Auto) (3622-8956) /uL Lymph # (Auto) (2204-6719) /uL [place] # (Auto) (0-900) /uL Eos # (Auto) (0-450) /uL Baso # (Auto) (0-100) /uL Sodium (137-145) mmol/L Potassium (3.4-5.1) mmol/L Chloride (98-107) mmol/L Carbon Dioxide (22-32) mmol/L BUN (7-17) mg/dL Creatinine (0.52-1.04) mg/dL Estimated GFR (>60) mL/min BUN/Creatinine Ratio (6-22) Glucose (80-110) mg/dL Lactate (0.7-2.1) mmol/L Calcium (8.4-10.2) mg/dL Procalcitonin 0.06 (<0.5) ng/mL MDM Narrative Medical decision making narrative: Patient is nontoxic appearing. Her labs are reassuring. She does have red warm right upper extremity. Review of her notes shows that she has been placed on doxycycline in the past for very similar symptoms. Unsure the etiology is there does not appear to be any breaks in the skin. This does not appear to be an allergic reaction. Does not appear to be other infectious etiology such as shingles. She was given 1st dose of antibio tics here in the ER. Blood cultures were obtained however do feel that she can be discharged home with oral treatment. She was given strict return precautions. She expressed understanding and agreement. I also have low concern for DVT given her clinical presentation. Discharge Plan Departure Patient Disposition: Home Clinical Impression: Cellulitis Instructions: DI for Cellulitis -- Adult Activity Restrictions/Additional Instructions: Take the antibiotics as directed. This is the same antibiotic that you were given at the end of last year when you were seen in our department and had very similar symptoms. Contact your primary provider for a follow-up. Continue the rest of your medications as directed. Return to the emergency department for any new or worsening symptoms Prescriptions: New doxycycline hyclate 100 mg tablet 100 mg PO BID 7 Days Qty: 14 RF: 0 No Action [CMP Estriol cream] 0.2 % 1 applictn Vaginal .COMPLEX Qty: 30 RF: 3 hyoscyamine sulfate 0.125 mg tablet, sublingual See Rx Instructions .ROUTE .COMPLEX Qty: 30 RF: 4 betamethasone, augmented 0.05 % ointment 1 applictn Topical SEE INSTRUCTIONS Qty: 50 RF: 1 clobetasol 0.05 % ointment See Rx Instructions .ROUTE .COMPLEX Qty: 30 RF: 3 atenolol 50 mg tablet 50 mg PO QDAY Qty: 90 RF: 3 lisinopril 20 mg tablet 40 mg PO DAILY Qty: 180 RF: 3 famciclovir 250 mg tablet 250 mg PO DAILY Qty: 30 RF: 3 gabapentin 100 mg capsule 100 mg PO BEDTIME Qty: 90 RF: 3 levothyroxine 100 mcg tablet See Rx Instructions .ROUTE .COMPLEX Qty: 90 RF: 1 metformin 500 mg tablet 1,000 mg PO BID Qty: 360 RF: 3 furosemide 20 mg tablet 20 mg PO DAILY Qty: 90 RF: 3 atorvastatin [Lipitor] 40 mg tablet 40 mg PO HS Qty: 90 RF: 3 amlodipine 10 mg tablet 10 mg PO DAILY Qty: 90 RF: 3 Hold Instructions: [email or web address] Referrals: Jatin Camarena MD [Primary Care Provider] -
[2021-01-02 12:39] LABS: Add Manual Diff / Slide Review NO; Basophils Absolute Auto 100 /uL (0-100); Basophils Percent Auto 0.9 % (0-2); Eosinophils Absolute Auto 100 /uL (0-450); Hematocrit 35.6 % (36-46); Hemoglobin 12.1 g/dL (12.0-16.0); Lymphocytes Absolute Auto 700 /uL (1100-4500); Lymphocytes Percent Auto 8.1 % (25-40); Mean Corpuscular Volume 85.3 fL (80-100); Monocytes Absolute Auto 500 /uL (0-900); Monocytes Percent Auto 6.4 % (3-14); Neutrophils Absolute Auto 6800 /uL (1500-7000); Neutrophils Percent Auto 83.6 % (50-75); Platelet Count 220 X10^3/uL (150-400); Red Blood Cell Count 4.18 X10^6/uL (4.0-5.2); Red Cell Distribution Width 13.5 % (11.6-14.8); White Blood Cell Count 8.1 X10^3/uL (4.5-11.0)
[2021-01-02] MEDS: DOXYCYCLINE HYCLATE 100 MG TABLET PO (12:41)
[2021-01-02] MEDS: ACETAMINOPHEN 325 MG TABLET 650 MG PO (12:42)
[2021-01-02 12:45] VITALS: PULSE 79; RESP 19; O2SAT 93
[2021-01-02 12:46] VITALS: BP 151/69; PULSE 75; RESP 18; O2SAT 93
[2021-01-02 12:50] LABS: Lactate (Lactic Acid) 2.1 mmol/L (0.7-2.1)
[2021-01-02 12:51] LABS: BUN Creatinine Ratio 19.5 (6-22); Blood Urea Nitrogen 17 mg/dL (7-17); Calcium 9.3 mg/dL (8.4-10.2); Carbon Dioxide 25 mmol/L (22-32); Chloride 99 mmol/L (98-107); Estimated Glomerular Filt Rate > 60.0 mL/min (>60); Glucose 138 mg/dL (80-110); HEMOLYSIS < 15 (0-50); Potassium 3.7 mmol/L (3.4-5.1); Sodium 134 mmol/L (137-145)
[2021-01-02 13:00] VITALS: BP 132/62; PULSE 75; PULSE 76; RESP 15; TEMP 37.7; O2SAT 94
[2021-01-02 13:08] LABS: Procalcitonin 0.06 ng/mL (<0.5)
[2021-01-02 14:35] LABS: Reflexed Lactate in 2 Hours Y
== END 2021-01-02 13:38 | disposition home or self-care (01) ==
PROVIDERS: Emergency Provider Emergency Medicine; PCP Internal Medicine
DX: L03.113 Cellulitis of right upper limb (principal)
CPT/HCPCS: 36415; 80048; 83605; 84145; 85025; 87040; 99283

== ENCOUNTER → 2021-02-08 11:26 | Outpatient (CLI) | payer MEDICARE, OTHER, SELFPAY ==
--- NOTE | 2021-02-08 11:27 | DI.MG.S_ITS ---
UNILATERAL LEFT DIGITAL SCREENING MAMMOGRAM 3D/2D WITH CAD POST MASTECTOMY: 02/08/2021 CLINICAL: Routine screening. Personal history of right breast cancer. Comparison is made to exams dated: 02/07/2020 mammogram, 12/02/2018 mammogram, and 11/22/2017 mammogram - [facility]. The tissue of left breast is heterogeneously dense. This may lower the sensitivity of mammography. Current study was also evaluated with a Computer Aided Detection (CAD) system. There are benign post operative findings in the left breast. No significant masses, calcifications, or other findings are seen in the breast. There has been no significant interval change. IMPRESSION: BENIGN There is no mammographic evidence of malignancy. A 1 year screening mammogram is recommended. This exam was interpreted at Station ID: [id number]. NOTE: For mammograms, a report in lay terms will be sent to the patient. Approximately 15% of breast malignancies will not be visualized mammographically. In the management of a palpable breast mass, a negative mammogram must not discourage biopsy of a clinically suspicious lesion. Electronically Signed By: Jasvir phan/rowna:02/08/2021 14:47:43 copy to: Jatin Camarena letter sent: Normal Exam ACR BI-RADS Category 2: Benign Finding(s) 3342F
== END ==
PROVIDERS: PCP Internal Medicine; Referring Provider Internal Medicine; Visit Provider Internal Medicine
DX: Z12.31 Encounter for screening mammogram for malignant neoplasm of breast (principal); Z85.3 Personal history of malignant neoplasm of breast
CPT/HCPCS: 77063; 77067

== ENCOUNTER → 2021-04-02 08:03 | Outpatient (CLI) | payer MEDICARE, OTHER, SELFPAY ==
[2021-04-02 10:45] LABS: Alanine Aminotransferase 23 IU/L (<35); Albumin 4.2 g/dL (3.5-5.0); Albumin Globulin Ratio 1.3 (1.0-2.8); Alkaline Phosphatase 67 U/L (38-126); Aspartate Aminotransferase 30 IU/L (14-36); BUN Creatinine Ratio 24.4 (6-22); Bilirubin Total 0.5 mg/dL (0.2-1.3); Blood Urea Nitrogen 19 mg/dL (7-17); Calcium 9.7 mg/dL (8.4-10.2); Carbon Dioxide 29 mmol/L (22-32); Chloride 102 mmol/L (98-107); Estimated Glomerular Filt Rate > 60.0 mL/min (>60); Globulin 3.3 g/dL (1.7-4.1); Glucose 125 mg/dL (80-110); HEMOLYSIS < 15 (0-50); Potassium 4.1 mmol/L (3.4-5.1); Sodium 140 mmol/L (137-145); Total Protein 7.5 g/dL (6.3-8.2)
[2021-04-02 10:51] LABS: Hemoglobin A1C% w Est Avg Glu 6.5 % (4.0-6.0)
[2021-04-02 11:03] LABS: Free T4, Direct Thyroxine 1.47 ng/dL (0.78-2.19)
[2021-04-02 11:17] LABS: Thyroid Stimulating Hormone 1.64 uIU/mL (0.47-4.68)
== END ==
PROVIDERS: PCP Internal Medicine; Referring Provider Internal Medicine; Visit Provider Internal Medicine
DX: Z85.3 Personal history of malignant neoplasm of breast (principal); E11.9 Type 2 diabetes mellitus without complications; I10 Essential (primary) hypertension; I89.0 Lymphedema, not elsewhere classified
CPT/HCPCS: 36415; 80053; 83036; 84439; 84443

== ENCOUNTER 2021-05-25 13:45 | Outpatient (RCR) | payer MEDICARE, OTHER, SELFPAY ==
--- NOTE | 2021-05-11 16:40 | PT.OIE ---
Current Diagnoses Lymphedema, not elsewhere classified (05/11/21) Personal history of malignant neoplasm of breast (05/11/21) Past Medical History (Last Reviewed 01/02/21 @ 12:21 by Vadim Mansfield DO) Abnormal LFTs (04/21/11) Acquired hypothyroidism (12/24/12) Cataract (2007) Chicken pox Controlled type 2 diabetes mellitus Diverticular disease (06/2010) Eczema (~1950) Essential hypertension (04/21/11) 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) History of cataract surgery (2007) History of colonoscopy (06/2010) Irritable bowel syndrome (09/22/14) Lymphedema of upper extremity (07/24/14) Measles Mixed hyperlipidemia (06/25/15) Peripheral neuropathy Personal history of breast cancer (2007) Rubella Type 2 diabetes mellitus with hyperglycemia, without long-term current use of insulin (01/15/17) Vulvovaginitis (04/04/17) Past Surgical History (Last Reviewed 07/23/20 @ 16:38 by Abby Mcarthur DO) Anesthesia History of cataract surgery (2007) History of colonoscopy (06/2010) History of thyroidectomy (05/1988) History of total mastectomy (11/28/07) Status post delivery (1964) Status post delivery (1969) Status post hysterectomy (09/09/13) Visit Care Team Role Provider Type Jatin Camarena MD Family Provider Physician Primary Care Provider Specialty: Internal Medicine Address: [address] [place] [address], [address], [address] Email: [email or web address] Jaime Cordero MD Attending Provider Physician Referring Provider Specialty: Oncology Address: [address] [place] [address], [id number] Email: Physical Therapy Initial Evaluation PT-OP-A Visit Information Start: 05/11/21 13:01 Freq: Status: Active Protocol: Document 05/11/21 16:40 AW (Rec: 05/11/21 17:19 AW [email or web address]) Out-Patient Physical Therapy Visit Information Visit Information Visit Type Initial Evaluation Visit Start Time 15:15 Visit Stop Time 16:40 Total Visit Minutes 85 Visit Number 1 Number of BAG FILLER Visits 0 Evaluation Information Evaluation Date 05/11/21 PT-OP-B Current Condition Start: 05/11/21 13:01 Freq: Status: Active Protocol: Document 05/11/21 16:40 AW (Rec: 05/11/21 16:47 AW [id number]) Current Condition History of Current Condition Onset Date chronic Current Complaints right arm swelling and weakness History of Current Condition Pt was diagnosed with stage 3 right breast cancer in 2007. She underwent mastectomy and had 7-8 lymph nodes removed. She was treated with chemotherapy and radiation. She has had no recurrence. She noticed swelling almost right away and remembers going to PT for neck and shoulder pain. She believes she also had lymphedema treatment. She was measured for and wore compression sleeves which she used to wear but has never worn them regularly. She has been treated and hospitalized for cellulitis and sepsis on multiple occasions over the years. Last episodes were in July 2020 and December 2020. She now keeps an oral antibiotic (doxycycline?) at home which she takes if her temperature exceeds 102 degrees F. Prior Treatments and Tests Stephanie had PT for neck and shoulder pain following mastectomy. She has trouble remembering but thinks she was also treated for lymphedema. Future Testing and Treatments Planned None identified Treatment Goals Patient/Caregiver Goals Reduce swelling and improve strength in right arm PT-OP-C Subjective Start: 05/11/21 13:01 Freq: Status: Active Protocol: Document 05/11/21 16:40 AW (Rec: 05/11/21 17:19 AW [email or web address]) OP-PT Subjective Patient Comments Patient Comments I'm not sure if this is bad enough for me to need therapy. Patient Questionnaires Lymphedema Life Impact Score Lymphedema Score 22 Lymphedema Impairment 1 to 19% Impaired (Score 19-32 ) Other Questionnaire Name and Score FACIT Fatigue Scale - 9/52 OP-PT Pain Assessment Pain Assessment Grid Paper Pain Assessment Grid Completed No PT-OP-K Range of Motion Start: 05/11/21 13:01 Freq: Status: Active Protocol: Document 05/11/21 16:40 AW (Rec: 05/11/21 17:19 AW [email or web address]) Shoulder Goniometric Range of Motion Shoulder Right Shoulder ROM WFL Yes Testing Position Sitting Flexion 142 Abduction 141 left Shoulder ROM WFL Yes Testing Position Sitting Flexion 147 Abduction 144 Elbow/Forearm Range of Motion Elbow/Forearm ROM Limitations Comments All elbow ROM WNL PT-OP-M Strength Start: 05/11/21 13:01 Freq: Status: Active Protocol: Document 05/11/21 16:40 AW (Rec: 05/11/21 17:34 AW [email or web address]) Shoulder Strength Shoulder Manual Muscle Testing Right Comments Grossly 4/5 Left Comments Grossly 4+/5 Elbow/Forearm Strength Elbow and Forearm Manual Muscle Testing Right Flexion (C6) 4 Good Extension (C7) 4 Good Left Flexion (C6) 4+ Good+ Extension (C7) 4 Good PT-OP-N Lymphedema Start: 05/11/21 13:01 Freq: Status: Active Protocol: Document 05/11/21 16:40 AW (Rec: 05/11/21 17:25 AW [email or web address]) Lymphedema Measurements Upper Extremity Circumference Measurements Left Unaffected MCP 17.1 cm Dorsum of Hand 17.3 cm Wrist 15.3 cm 10 cm From Wrist Crease 18.6 cm 20 cm From Wrist Crease 23 cm 30 cm From Wrist Crease 24.8 cm 40 cm From Wrist Crease 28 cm Right Affected MCP 17.5 cm Dorsum of Hand 17.3 cm Wrist 15.4 cm 10 cm From Wrist Crease 20.8 cm 20 cm From Wrist Crease 25.3 cm 30 cm From Wrist Crease 24.4 cm 40 cm From Wrist Crease 26.8 cm Elbow Joint 24.9 cm - chest at axilla - 87.0 cm Comments Lymphedema Comments Tissue quality in right forearm is more dense than left but not fibrotic. PT-OP-Q Treatments Start: 05/11/21 13:01 Freq: Status: Active Protocol: Document 05/11/21 16:40 AW (Rec: 05/11/21 17:31 AW [email or web address]) Lymphedema Treatment Manual Lymphatic Drainage Location RUE Duration 30 min Comments Focused of AAA, AIA, and SANTANA to increase lymphangiomotoricity, promote drainage Lymphedema Wrapping Body Location RUE Materials Tricofix, artifex, comprilan 6 cm and 8 cm to wrap palm up to proximal humerus. Fingers not wrapped this date. Sequential Lymphedema Exercises Location RUE Duration 5 min Comments Performed diaphragmatic breathing and encouraged same throughout treatment. Performed AROM shoulder, elbow , wrist, and hands. Provided handout with sequential lymphedema exercises for reference. Patient Education Lymphedema Pathology Educated pt on superficial lymphatic system and rationale for MLD Lymphedema Precautions Discussed skin care and precautions. Provided handout. Self Manual Lymphatic Drainage Handout provided PT-OP-T Assessment and Plan Start: 05/11/21 13:01 Freq: Status: Active Protocol: Document 05/11/21 16:40 AW (Rec: 05/15/21 16:02 AW [id number]) Physical Therapy Assessment Rehab Potential Rehabilitation Potential Excellent Evaluation Complexity Number of Personal Factors/Comorbidities 1-2 Number of Body Systems Impaired 1-2 Clinical Presentation at Evaluation Evolving Impairments Impairments Edema,Functional Activities, Pain,ROM,Soft Tissue Mobility, Strength Goals Three Impairment impaired RUE ROM Short Term Goal (STG) Pt leeann lbe independent with HEP aimed at improving RUE ROM to support therapy services provided in clinic. STG Duration 4 weeks - 06/08/21 Assistant Professor Surgical Technology Goal (LTG) Pt will improve RUE flexion and abduction equal to LUE for improved ease with self-care and reaching overhead. LTG Duration 12 weeks - 07/03/21 Two Impairment inadequate compression garments Short Term Goal (STG) Pt will be able to teach back regarding benefits and safe use of compression for edema reduction and half-way management. STG Duration 4 weeks - 06/08/21 Intermediate Goal (LTG) When stable, pt will be measured and fit for appropriate compression garments. She will don and doff correctly and safely. LTG Duration 12 weeks - 07/03/21 One Impairment pain and swelling RUE Short Term Goal (STG) Pt will be educated in self- MLD, compression wrapping/ compression alternative, STG Duration 4 weeks - 06/08/21 Assistant Professor Surgical Technology Goal (LTG) Decrease RUE swelling to stable (no change >1 cm in circumferential measurements) over the course of one week. LTG Duration 12 weeks - 07/03/21 Assessment Summary Assessment Stephanie is a 76 yo woman with history of right breast cancer, mastectomy, chemotherapy, and adjuvant radiation in 2007. She attends outpatient physical therapy with complaints of RUE swelling, pain, and reduced range of motion. She was previously treated for lymphedema but has not worn compression consistently. Pt has impaired right upper extremity range of motion and swelling which affects her forearm and elbow. She is expected to benefit from physical therapy to address her swelling in order to improve her function and overall quality of life. When edema is reduced and stable, she will need to be fit for appropriate compression garments and/or compression alternative for long-term management. Physical Therapy Plan Frequency and Duration Frequency of Treatment 20 visits Duration of Treatment 12 weeks Plan of Care Start Date 05/11/21 Plan of Care End Date 07/03/21 Therapeutic Interventions Therapeutic Interventions Home Exercise Program, Lymphedema Management,Manual Therapy,Patient/Caregiver Education,Self-Care/Home Management,Soft Tissue Mobilization,Taping, Therapeutic Activities, Therapeutic Exercises Other Therapeutic Interventions edema management Next Visit Focus/Plan Next Note Type Treatment Note Next Visit Plan Skin care, MLD, compression bandaging, and ther ex to reduce edema. Continue education on pathology and rationale for treatment.
--- NOTE | 2021-05-11 16:40 | PT.OPPOC ---
Physical, Occupational & Speech Therapy At [facility] Current Diagnoses Lymphedema, not elsewhere classified (05/11/21) Personal history of malignant neoplasm of breast (05/11/21) Visit Care Team Role Provider Type Jatin Camarena MD Family Provider Physician Primary Care Provider Specialty: Internal Medicine Address: [address] [place] [address], [address], [address] Email: [email or web address] Jaime Cordero MD Attending Provider Physician Referring Provider Specialty: Oncology Address: [address] [place] [address], [id number] Email: Plan Of Care PT-OP-T Assessment and Plan Start: 05/11/21 13:01 Freq: Status: Active Protocol: Document 05/11/21 16:40 AW (Rec: 05/15/21 16:02 AW [id number]) Physical Therapy Assessment Rehab Potential Rehabilitation Potential Excellent Evaluation Complexity Number of Personal Factors/Comorbidities 1-2 Number of Body Systems Impaired 1-2 Clinical Presentation at Evaluation Evolving Impairments Impairments Edema,Functional Activities, Pain,ROM,Soft Tissue Mobility, Strength Goals Three Impairment impaired RUE ROM Short Term Goal (STG) Pt leeann lbe independent with HEP aimed at improving RUE ROM to support therapy services provided in clinic. STG Duration 4 weeks - 06/08/21 [employer] Consultant Goal (LTG) Pt will improve RUE flexion and abduction equal to LUE for improved ease with self-care and reaching overhead. LTG Duration 12 weeks - 07/03/21 Two Impairment inadequate compression garments Short Term Goal (STG) Pt will be able to teach back regarding benefits and safe use of compression for edema reduction and continuous churn buttermaker management. STG Duration 4 weeks - 06/08/21 Intermediate Goal (LTG) When stable, pt will be measured and fit for appropriate compression garments. She will don and doff correctly and safely. LTG Duration 12 weeks - 07/03/21 One Impairment pain and swelling RUE Short Term Goal (STG) Pt will be educated in self- MLD, compression wrapping/ compression alternative, STG Duration 4 weeks - 06/08/21 [employer] Consultant Goal (LTG) Decrease RUE swelling to stable (no change >1 cm in circumferential measurements) over the course of one week. LTG Duration 12 weeks - 07/03/21 Assessment Summary Assessment Stephanie is a 76 yo woman with history of right breast cancer, mastectomy, chemotherapy, and adjuvant radiation in 2007. She attends outpatient physical therapy with complaints of RUE swelling, pain, and reduced range of motion. She was previously treated for lymphedema but has not worn compression consistently. Pt has impaired right upper extremity range of motion and swelling which affects her forearm and elbow. She is expected to benefit from physical therapy to address her swelling in order to improve her function and overall quality of life. When edema is reduced and stable, she will need to be fit for appropriate compression garments and/or compression alternative for long-term management. Physical Therapy Plan Frequency and Duration Frequency of Treatment 20 visits Duration of Treatment 12 weeks Plan of Care Start Date 05/11/21 Plan of Care End Date 07/03/21 Therapeutic Interventions Therapeutic Interventions Home Exercise Program, Lymphedema Management,Manual Therapy,Patient/Caregiver Education,Self-Care/Home Management,Soft Tissue Mobilization,Taping, Therapeutic Activities, Therapeutic Exercises Other Therapeutic Interventions edema management Next Visit Focus/Plan Next Note Type Treatment Note Next Visit Plan Skin care, MLD, compression bandaging, and ther ex to reduce edema. Continue education on pathology and rationale for treatment. Plan of Care Dates Plan of Care Start Date 05/11/21 Plan of Care End Date 07/03/21 Electronically Signed by: Lucía Wade PT 05/15/21 2199 Please Sign and Return: I have reviewed this Plan of Care and certify that the skilled therapy services above are required to meet the patient?s needs. Physician Signature Date Printed Name and Credentials Clinical Instructor Signature Printed Name and Credentials
--- NOTE | 2021-05-25 14:36 | PT.OTN ---
Current Diagnoses Lymphedema, not elsewhere classified (05/25/21) Personal history of malignant neoplasm of breast (05/25/21) Physical Therapy Treatment Note PT-OP-A Visit Information Start: 05/11/21 13:01 Freq: Status: Active Protocol: Document 05/25/21 14:18 AW (Rec: 05/25/21 14:36 AW [email or web address]) Out-Patient Physical Therapy Visit Information Visit Information Visit Type Treatment Note Visit Start Time 13:45 Visit Stop Time 14:18 Total Visit Minutes 33 Visit Number [address] ASSOCIATE JUSTICE Visits 0 Evaluation Information Evaluation Date 05/11/21 PT-OP-B Current Condition Start: 05/11/21 13:01 Freq: Status: Active Protocol: Document 05/11/21 16:40 AW (Rec: 05/11/21 16:47 AW [id number]) Current Condition History of Current Condition Onset Date chronic Current Complaints right arm swelling and weakness History of Current Condition Pt was diagnosed with stage 3 right breast cancer in 2007. She underwent mastectomy and had 7-8 lymph nodes removed. She was treated with chemotherapy and radiation. She has had no recurrence. She noticed swelling almost right away and remembers going to PT for neck and shoulder pain. She believes she also had lymphedema treatment. She was measured for and wore compression sleeves which she used to wear but has never worn them regularly. She has been treated and hospitalized for cellulitis and sepsis on multiple occasions over the years. Last episodes were in July 2020 and December 2020. She now keeps an oral antibiotic (doxycycline?) at home which she takes if her temperature exceeds 102 degrees F. Prior Treatments and Tests Stephanie had PT for neck and shoulder pain following mastectomy. She has trouble remembering but thinks she was also treated for lymphedema. Future Testing and Treatments Planned None identified Treatment Goals Patient/Caregiver Goals Reduce swelling and improve strength in right arm PT-OP-C Subjective Start: 05/11/21 13:01 Freq: Status: Active Protocol: Document 05/25/21 14:18 AW (Rec: 05/25/21 14:36 AW [email or web address]) OP-PT Subjective Patient Comments Patient Comments I'm pretty sure I don't want to continue with therapy. PT-OP-K Range of Motion Start: 05/11/21 13:01 Freq: Status: Active Protocol: Document 05/11/21 16:40 AW (Rec: 05/11/21 17:19 AW [email or web address]) Shoulder Goniometric Range of Motion Shoulder Right Shoulder ROM WFL Yes Testing Position Sitting Flexion 142 Abduction 141 left Shoulder ROM WFL Yes Testing Position Sitting Flexion 147 Abduction 144 Elbow/Forearm Range of Motion Elbow/Forearm ROM Limitations Comments All elbow ROM WNL PT-OP-M Strength Start: 05/11/21 13:01 Freq: Status: Active Protocol: Document 05/11/21 16:40 AW (Rec: 05/11/21 17:34 AW [email or web address]) Shoulder Strength Shoulder Manual Muscle Testing Right Comments Grossly 4/5 Left Comments Grossly 4+/5 Elbow/Forearm Strength Elbow and Forearm Manual Muscle Testing Right Flexion (C6) 4 Good Extension (C7) 4 Good Left Flexion (C6) 4+ Good+ Extension (C7) 4 Good PT-OP-N Lymphedema Start: 05/11/21 13:01 Freq: Status: Active Protocol: Document 05/11/21 16:40 AW (Rec: 05/11/21 17:25 AW [email or web address]) Lymphedema Measurements Upper Extremity Circumference Measurements Left Unaffected MCP 17.1 cm Dorsum of Hand 17.3 cm Wrist 15.3 cm 10 cm From Wrist Crease 18.6 cm 20 cm From Wrist Crease 23 cm 30 cm From Wrist Crease 24.8 cm 40 cm From Wrist Crease 28 cm Right Affected MCP 17.5 cm Dorsum of Hand 17.3 cm Wrist 15.4 cm 10 cm From Wrist Crease 20.8 cm 20 cm From Wrist Crease 25.3 cm 30 cm From Wrist Crease 24.4 cm 40 cm From Wrist Crease 26.8 cm Elbow Joint 24.9 cm - chest at axilla - 87.0 cm Comments Lymphedema Comments Tissue quality in right forearm is more dense than left but not fibrotic. PT-OP-Q Treatments Start: 05/11/21 13:01 Freq: Status: Active Protocol: Document 05/25/21 14:18 AW (Rec: 05/25/21 14:36 AW [email or web address]) Self-Care/Home Management Treatment Education Patient Education Home Exercise Program,Safety Other Education Continued to educate patient on lymphedema pathology and rationale for treatment. Referred pt to online resources and suggested referral to P&O to measure for appropriate compression garment. Lymphedema Treatment Patient Education Lymphedema Pathology Reviewed Lymphedema Precautions Reviewed Compression Garments Suggested pt seek referral to P&O for measurements. Self Manual Lymphatic Drainage Reviewed and provided internet resource for education Other Other Pt arrived with Juzo compression sleeve (wrist to axilla) which she no longer wears. She notes that when she does wear it, she gets swelling in her hand mariana to what she experienced with compression bandaging. Educated pt on importance of proper fit and suggested she seek a referral from her oncologist to be measured by P &O for a sleeve with glove. PT-OP-T Assessment and Plan Start: 05/11/21 13:01 Freq: Status: Active Protocol: Document 05/25/21 14:18 AW (Rec: 05/25/21 14:36 AW [email or web address]) Physical Therapy Assessment Goals Three Impairment impaired RUE ROM Short Term Goal (STG) Pt leeann lbe independent with HEP aimed at improving RUE ROM to support therapy services provided in clinic. STG Duration 4 weeks - 06/08/21 Halfway Goal (LTG) Pt will improve RUE flexion and abduction equal to LUE for improved ease with self-care and reaching overhead. LTG Duration 12 weeks - 07/03/21 Two Impairment inadequate compression garments Short Term Goal (STG) Pt will be able to teach back regarding benefits and safe use of compression for edema reduction and assistant terminal manager management. STG Duration 4 weeks - 06/08/21 Halfway Goal (LTG) When stable, pt will be measured and fit for appropriate compression garments. She will don and doff correctly and safely. LTG Duration 12 weeks - 07/03/21 One Impairment pain and swelling RUE Short Term Goal (STG) Pt will be educated in self- MLD, compression wrapping/ compression alternative, STG Duration 4 weeks - 06/08/21 Halfway Goal (LTG) Decrease RUE swelling to stable (no change >1 cm in circumferential measurements) over the course of one week. LTG Duration 12 weeks - 07/03/21 Assessment Summary Assessment Stephanie arrived conflicted about continuing treatment. She reports she is usually medically compliant but expressed that she is simply not very concerned with her swelling at this time and does not feel it would be worth her time and energy to continue with therapy. PT continued education on lymphedema pathology and rationale for treatment, including need for chronic management. Pt was open to education about compression sleeve to include glove component and agreed to seek referral from oncologist to P& O for measurement. Pt was referred to online resources for self-MLD and compression alternatives. Pt agreed to leave chart open for one month at which time PT will check in if pt wants to be seen again. Physical Therapy Plan Frequency and Duration Frequency of Treatment 20 visits Duration of Treatment 12 weeks Plan of Care Start Date 05/11/21 Plan of Care End Date 07/03/21 Therapeutic Interventions Therapeutic Interventions Home Exercise Program, Lymphedema Management,Manual Therapy,Patient/Caregiver Education,Self-Care/Home Management,Soft Tissue Mobilization,Taping, Therapeutic Activities, Therapeutic Exercises Other Therapeutic Interventions edema management Hold Physical Therapy Reason For Hold Hold one month for pt to get measured for compression. Check in one month for possible discharge vs resume therapy. Next Visit Focus/Plan Next Note Type Treatment Note Next Visit Plan Skin care, MLD, compression bandaging, and ther ex to reduce edema. Continue education on pathology and rationale for treatment.
--- NOTE | 2021-06-29 08:50 | PT.OPDS ---
Current Diagnoses Lymphedema, not elsewhere classified (05/25/21) Personal history of malignant neoplasm of breast (05/25/21) Visit Care Team Role Provider Type Jatin Camarena MD Family Provider Physician Primary Care Provider Specialty: Internal Medicine Address: [address] [place] [address], [address], [place], [address] Email: [email or web address] Jaime Cordero MD Attending Provider Physician Referring Provider Specialty: Oncology Address: [address] [place] [address], [id number] Email: Visit Number Visit Number 2 Discharge Summary PT-OP-B Current Condition Start: 05/11/21 13:01 Freq: Status: Active Protocol: Document 05/11/21 16:40 AW (Rec: 05/11/21 16:47 AW [id number]) Current Condition History of Current Condition Onset Date chronic Current Complaints right arm swelling and weakness History of Current Condition Pt was diagnosed with stage 3 right breast cancer in 2007. She underwent mastectomy and had 7-8 lymph nodes removed. She was treated with chemotherapy and radiation. She has had no recurrence. She noticed swelling almost right away and remembers going to PT for neck and shoulder pain. She believes she also had lymphedema treatment. She was measured for and wore compression sleeves which she used to wear but has never worn them regularly. She has been treated and hospitalized for cellulitis and sepsis on multiple occasions over the years. Last episodes were in July 2020 and December 2020. She now keeps an oral antibiotic (doxycycline?) at home which she takes if her temperature exceeds 102 degrees F. Prior Treatments and Tests Stephanie had PT for neck and shoulder pain following mastectomy. She has trouble remembering but thinks she was also treated for lymphedema. Future Testing and Treatments Planned None identified Treatment Goals Patient/Caregiver Goals Reduce swelling and improve strength in right arm PT-OP-C Subjective Start: 05/11/21 13:01 Freq: Status: Active Protocol: Document 05/25/21 14:18 AW (Rec: 05/25/21 14:36 AW [email or web address]) OP-PT Subjective Patient Comments Patient Comments I'm pretty sure I don't want to continue with therapy. PT-OP-K Range of Motion Start: 05/11/21 13:01 Freq: Status: Active Protocol: Document 05/11/21 16:40 AW (Rec: 05/11/21 17:19 AW [email or web address]) Shoulder Goniometric Range of Motion Shoulder Right Shoulder ROM WFL Yes Testing Position Sitting Flexion 142 Abduction 141 left Shoulder ROM WFL Yes Testing Position Sitting Flexion 147 Abduction 144 Elbow/Forearm Range of Motion Elbow/Forearm ROM Limitations Comments All elbow ROM WNL PT-OP-M Strength Start: 05/11/21 13:01 Freq: Status: Active Protocol: Document 05/11/21 16:40 AW (Rec: 05/11/21 17:34 AW [email or web address]) Shoulder Strength Shoulder Manual Muscle Testing Right Comments Grossly 4/5 Left Comments Grossly 4+/5 Elbow/Forearm Strength Elbow and Forearm Manual Muscle Testing Right Flexion (C6) 4 Good Extension (C7) 4 Good Left Flexion (C6) 4+ Good+ Extension (C7) 4 Good PT-OP-N Lymphedema Start: 05/11/21 13:01 Freq: Status: Active Protocol: Document 05/11/21 16:40 AW (Rec: 05/11/21 17:25 AW [email or web address]) Lymphedema Measurements Upper Extremity Circumference Measurements Left Unaffected MCP 17.1 cm Dorsum of Hand 17.3 cm Wrist 15.3 cm 10 cm From Wrist Crease 18.6 cm 20 cm From Wrist Crease 23 cm 30 cm From Wrist Crease 24.8 cm 40 cm From Wrist Crease 28 cm Right Affected MCP 17.5 cm Dorsum of Hand 17.3 cm Wrist 15.4 cm 10 cm From Wrist Crease 20.8 cm 20 cm From Wrist Crease 25.3 cm 30 cm From Wrist Crease 24.4 cm 40 cm From Wrist Crease 26.8 cm Elbow Joint 24.9 cm - chest at axilla - 87.0 cm Comments Lymphedema Comments Tissue quality in right forearm is more dense than left but not fibrotic. PT-OP-T Assessment and Plan Start: 05/11/21 13:01 Freq: Status: Active Protocol: Document 06/29/21 08:48 AW (Rec: 06/29/21 08:49 AW [email or web address]) Physical Therapy Plan Discharge Physical Therapy Discharge Reasons No Longer Attending PT Discharge Comments Pt was evaluated for lymphedema symptoms but was uninterested in continuing treatment. She was referred to online resources for self- management and agreed to seek referral to BILINGUAL CUSTOMER SERVICE SPECIALIST for measurement to obtain new compression sleeve with glove component. Pt will need a new referral to return to PT.
== END 2021-10-11 09:51 ==
LOC: PHYS 13:45
PROVIDERS: Family Provider Internal Medicine; PCP Internal Medicine; Referring Provider Internal Medicine; Visit Provider Internal Medicine
DX: Z85.3 Personal history of malignant neoplasm of breast (principal); I89.0 Lymphedema, not elsewhere classified
CPT/HCPCS: 97140; 97161; 97535

== ENCOUNTER → 2021-10-04 07:01 | Outpatient (CLI) | payer MEDICARE, OTHER, SELFPAY ==
[2021-10-04 08:20] LABS: Hemoglobin A1C% w Est Avg Glu 6.5 % (4.0-6.0)
[2021-10-04 08:39] LABS: Alanine Aminotransferase 21 IU/L (<35); Albumin 4.6 g/dL (3.5-5.0); Albumin Globulin Ratio 1.4 (1.0-2.8); Alkaline Phosphatase 61 U/L (38-126); Aspartate Aminotransferase 35 IU/L (14-36); BUN Creatinine Ratio 21.3 (6-22); Bilirubin Total 0.6 mg/dL (0.2-1.3); Blood Urea Nitrogen 17 mg/dL (7-17); Calcium 9.6 mg/dL (8.4-10.2); Carbon Dioxide 29 mmol/L (22-32); Chloride 103 mmol/L (98-107); Cholesterol 161 mg/dL (140-199); Estimated Glomerular Filt Rate > 60.0 mL/min (>60); Globulin 3.4 g/dL (1.7-4.1); Glucose 112 mg/dL (80-110); HDL Cholesterol 40 mg/dL (40-60); HEMOLYSIS 20 (0-50); LDL Cholesterol Calculated 89 mg/dL (<100); Potassium 4.2 mmol/L (3.4-5.1); Sodium 139 mmol/L (137-145); Triglycerides 159 mg/dL (35-150)
== END ==
PROVIDERS: Family Provider Internal Medicine; PCP Internal Medicine; Referring Provider Internal Medicine; Visit Provider Internal Medicine
DX: E11.9 Type 2 diabetes mellitus without complications (principal); I10 Essential (primary) hypertension; E03.9 Hypothyroidism, unspecified
CPT/HCPCS: 36415; 80053; 80061; 83036; 84439; 84443

== ENCOUNTER → 2022-02-10 13:17 | Outpatient (CLI) | payer MEDICARE, OTHER, SELFPAY ==
--- NOTE | 2022-02-10 13:35 | DI.MG.S_ITS ---
Date: 02/10/2022 14:12 At the request of: NICK LINDQUIST Procedure: MM screening mammo unilat LT UNILATERAL LEFT DIGITAL SCREENING MAMMOGRAM 3D/2D WITH CAD POST MASTECTOMY: 02/10/2022 CLINICAL: Routine screening. Personal history of right breast cancer. Comparison is made to exams dated: 02/08/2021 mammogram, 02/07/2020 mammogram, and 12/02/2018 mammogram - [facility]. The tissue of left breast is heterogeneously dense. This may lower the sensitivity of mammography. Current study was also evaluated with a Computer Aided Detection (CAD) system. There are benign post operative findings in the left breast. No significant masses, calcifications, or other findings are seen in the breast. There has been no significant interval change. IMPRESSION: BENIGN There is no mammographic evidence of malignancy. A 1 year screening mammogram is recommended. This exam was interpreted at Station ID: [id number]. NOTE: For mammograms, a report in lay terms will be sent to the patient. Approximately 15% of breast malignancies will not be visualized mammographically. In the management of a palpable breast mass, a negative mammogram must not discourage biopsy of a clinically suspicious lesion. Electronically Signed By: Kari perez/rowan:02/14/2022 16:39:48 copy to: Jatin Camarena letter sent: Normal Exam ACR BI-RADS Category 2: Benign Finding(s) 3342F
== END ==
PROVIDERS: Family Provider Internal Medicine; PCP Internal Medicine; Referring Provider Internal Medicine; Visit Provider Internal Medicine
DX: Z12.31 Encounter for screening mammogram for malignant neoplasm of breast (principal); Z85.3 Personal history of malignant neoplasm of breast
CPT/HCPCS: 77063; 77067

== ENCOUNTER → 2022-02-27 13:59 | Outpatient (CLI) | payer MEDICARE, OTHER, SELFPAY ==
[2022-02-27 15:58] LABS: COVID19 -Nasal RAPID Negative (Negative)
== END ==
PROVIDERS: Family Provider Internal Medicine; PCP Internal Medicine; Visit Provider Surgery
DX: Z20.822 Contact with and (suspected) exposure to COVID-19 (principal); Z01.812 Encounter for preprocedural laboratory examination
CPT/HCPCS: 87635; C9803

== ENCOUNTER 2022-03-01 09:19 | Day surgery (SDC) | payer MEDICARE, OTHER, SELFPAY ==
--- NOTE | 2022-03-01 | PATH_ITS ---
[facility] Accession Number: [id number] . 01 Material submitted: . PART A: gastrointestinal site - GASTRIC PART B: duodenum - DUODNEAL PART C: colon - ASCENDING COLON POLYP . 01 Clinical history: . A: R/O H. PYLORI B: R/O CELIAC SCREW . 01 Diagnosis: A. Stomach, Biopsies: Antral mucosa with mild chronic gastritis. Negative for Helicobacter by immunohistochemistry. Negative for intestinal metaplasia. Negative for dysplasia and malignancy. . B, Duodenum, Biopsy: Small bowel with no diagnostic abnormality. Negative for active inflammation, features of sprue, dysplasia, or malignancy. . C. Ascending Colon, Polyp, Biopsy: Tubular adenoma. MRV 03/03/2022 1009 Local . 01 Electronically signed: . Renata Griffin MD, Pathologist NPI- [id number] . 01 Gross description: . Part A: GASTRIC: Received in formalin are 2 fragment(s) of vines, soft tissue measuring 0.3 x 0.2 x 0.2 cm to 0.2 x 0.2 x 0.2 cm submitted entirely in 1 cassette(s) Part B: DUODNEAL: Received in formalin are 2 fragment(s) of vines, soft tissue measuring 0.3 x 0.2 x 0.2 cm to 0.2 x 0.2 x 0.2 cm submitted entirely in 1 cassette(s) Part C: ASCENDING COLON POLYP: Received in formalin is 1 fragment(s) of vines, soft tissue measuring 0.7 x 0.2 x 0.1 cm submitted entirely in 1 cassette(s) /CPE 03/02/2022 0904 Local . 01 Microscopic: . A. An immunohistochemical stain was performed to evaluate for Helicobacter organisms and is negative. The control stain showed appropriate reactivity. . * This test was developed and its performance characteristics determined by [facility]. It has not been cleared or approved by the U.S. Food and Drug Administration. The FDA has determined that such clearance or approval is not necessary. This test is used for clinical purposes. It should not be regarded as investigational or for research. . 01 Pathologist provided ICD-10: D12.2, R13.10 . 01 CPT . 957899, 900958, 456121, Q34048 Specimen Comment: A courtesy copy of this report has been sent to [phone] Performed at: 01 [facility] [address] [place] [address], [place], [place] [id number] MD Jasvir Rivera MD Phone: [phone]
[2022-03-01 09:35] VITALS: BP 177/84; PULSE 87; RESP 15; TEMP 36.2; O2SAT 98; BMI 21.9
[2022-03-01] MEDS: LACTATED RINGERS 1,000 ML 42 ML IV (09:50)
--- NOTE | 2022-03-01 10:31 | PM.HP.1 ---
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) Irritable bowel syndrome (09/22/14) Lymphedema of upper extremity (07/24/14) Measles Mixed hyperlipidemia (06/25/15) Peripheral neuropathy Personal history of breast cancer (2007) Rubella Type 2 diabetes mellitus with hyperglycemia, without long-term current use of insulin (01/15/17) Vulvovaginitis (04/04/17) Surgical History Anesthesia History of cataract surgery (2007) History of colonoscopy (06/2010) History of thyroidectomy (05/1988) History of total mastectomy (11/28/07) Status post delivery (1964) Status post delivery (1969) Status post hysterectomy (09/09/13) Family & Social History Family History Brother Age: 92 Hypertension Child Age: 51 Hypothyroidism Father Coronary atherosclerosis Hypertension High cholesterol Aneurysm Mother Hypertension Liver disease Grandmother Diabetes mellitus Social History: household members spouse lives independently Yes caregiver/support person No Tobacco & Substance use: Smoking Status Former smoker alcohol intake current alcohol intake frequency holiday/special occasion Substance Use Type does not use Meds Home Medications and Allergies Home Medications Medication Instructions Recorded Confirmed Type post mastectomy bra #2 ea 04/11/21 02/07/22 Rx atorvastatin 40 mg tablet (Lipitor) 40 mg PO HS #90 tabs 04/13/21 03/01/22 Rx furosemide 20 mg tablet 20 mg PO DAILY #90 tabs 05/02/21 03/01/22 Rx levothyroxine 100 mcg tablet 100 mcg PO DAILY #90 tabs 05/02/21 03/01/22 Rx hyoscyamine sulfate 0.125 mg See Rx Instructions .Route 05/24/21 02/22/22 Rx sublingual tablet .COMPLEX #30 ea atenolol 50 mg tablet 50 mg PO QDAY #90 tabs 11/16/21 06/22/22 Rx lisinopril 40 mg tablet 40 mg PO DAILY #90 tabs 08/10/21 02/22/22 Rx clobetasol 0.05 % topical gel 1 applic topical .COMPLEX Vulvar 10/12/21 02/22/22 Rx irritation #30 grams gabapentin 100 mg capsule 100 mg PO BEDTIME #90 caps 12/09/21 03/01/22 Rx metformin 500 mg tablet 1,000 mg PO BID #360 tabs 01/02/22 03/01/22 Rx benzonatate 100 mg capsule 100 mg PO TID PRN cough #30 caps 02/07/22 02/22/22 Rx Allergies Allergy/AdvReac Type Severity Reaction Status Date / Time levofloxacin [LEVOFLOXACIN] Allergy Intermediate ITCHY HIVES Verified 03/01/22 09:45 vancomycin [VANCOMYCIN] Allergy Intermediate RASH/HIVES Verified 03/01/22 09:45 06/25/17 Sulfa (Sulfonamide Allergy Mild RASH Verified 03/01/22 09:45 Antibiotics) [SULFA (SULFONAMIDE ANTIBIOTICS)] amlodipine AdvReac Intermediate leg Verified 03/01/22 09:45 swelling adhesive [ADHESIVE] AdvReac Mild MAYORGA AND Verified 03/01/22 09:45 IRRITATION FROM TAPE oxycodone [OXYCODONE] AdvReac Mild MAKES HER Verified 03/01/22 09:45 SICK Review of Systems Review of Systems Narrative: Negative Exam Vital Signs (past 8 hours): - 03/01/22 09:35 Temperature 97.1 F L Pulse Rate 87 Respiratory Rate 15 Blood Pressure 177/84 H Pulse Oximetry 98 Oxygen Delivery Method Room Air Oxygen Delivery Method Room Air Narrative Exam Narrative: Awake alert and oriented x3, pupils equal round reactive to light, oropharynx clear, heart regular rate and rhythm, lungs clear to auscultation bilaterally, abdomen nontender and nondistended, extremities without edema, no gross neurologic deficits noted Assessment & Plan Assessment & Plan narrative: Dysphagia, bloating for EGD and colonoscopy today Time Spent With Patient Critical Care time: I spent a total of [] minutes of critical care time on this patient's care today; this time is exclusive of procedural time.
--- NOTE | 2022-03-01 10:46 | PM.OP.EGD ---
Operative Date/Time/Diagnoses Date of procedure: 03/01/22 Procedure & Clinicians Study performed: EGD with cold biopsy Indications: Pharyngoesophageal dysphagia. Sore throat. Suspected GERD Procedure Notes Procedure in detail: Prior to the procedure, history and physical was performed, and patient medications and allergies were reviewed. Preprocedure nursing history and assessment was reviewed. Patient identification and proposed procedure were verified by the physician and nurse in the procedure room. The physical status of the patient was reassessed after the procedure. After informed consent was obtained including risks, benefits, and alternatives, the scope was passed under direct vision. Throughout the procedure, the patient's blood pressure, pulse, and oxygen saturations were monitored continuously. The upper endoscope was introduced through the mouth and advanced to the 2nd portion of the duodenum. Retroflexion was performed in the stomach. The patient tolerated the procedure well. Limited visualization of the posterior pharynx was unrevealing The entire examined esophagus was normal appearing. The Z-line was regular and was located at 40 cm. Small erosions noted in the gastric body along the greater curvature. The remainder of the stomach was normal appearing. Biopsies taken from the antrum and body to rule out H pylori. A small erosion was noted in the duodenal bulb. The duodenum was otherwise normal appearing. Biopsies taken rule out celiac sprue. Complications: other (EBL minimal. No complications) Impression: Normal appearing esophagus and squamocolumnar junction. Small gastric erosion. Stomach otherwise normal appearing. Biopsied to rule out H pylori. Small duodenal erosion. Duodenum otherwise normal appearing. Biopsied to rule out celiac sprue. Post-procedure Plan for aftercare: Follow-up pathology results Proceed with colonoscopy today
--- NOTE | 2022-03-01 11:08 | P.OP.COLON_ITS ---
Operative Date/Time/Diagnoses Date of procedure: 03/01/22 Procedure & Clinicians Study performed: Colonoscopy with snare polypectomy Indications: Change in bowel habits, bloating Procedure Notes Procedure in detail: Prior to the procedure, history and physical was performed, and patient medications and allergies were reviewed. Preprocedure nursing history and as sessment was reviewed. Patient identification and proposed procedure were verified by the physician and nurse in the procedure room. The physical status of the patient was reassessed after the procedure. After informed consent was obtained including risks, benefits, and alternatives, the scope was passed under direct vision. Throughout the procedure, the patient's blood pressure, pulse, and oxygen saturations were monitored continuously. The colonoscope was introduced through the anus and advanced to the terminal ileum, appendiceal orifice and ileocecal valve identified. The patient tolerated the procedure well. Bowel prep was deemed adequate to detect polyps greater than 5 mm. Digital rectal and perianal examinations were unremarkable. Retroflexion in the rectum revealed grade 2 internal hemorrhoids Scattered medium-sized diverticula were noted in the sigmoid colon A 5 mm sessile polyp was removed from the ascending colon and retrieved The terminal ileum was normal appearing Complications: other (EBL minimal. No complications) Impression: Internal hemorrhoids Sigmoid colon diverticulosis 5 mm polyp removed from ascending colon Normal appearing terminal ileum Post-procedure Plan for aftercare: Follow-up pathology results Due to age, a repeat colonoscopy for screening purposes may not be needed pending review of the pathology results Resume home medications High fiber diet Follow-up in GI clinic if bothersome gastrointestinal symptoms persist Patient has a contact number available for emergencies. The signs and symptoms of potential delayed complications were discussed with the patient. Return to normal activities tomorrow. Written discharge instructions were provided to the patient. Discharge home with escort
[2022-03-01 11:11] VITALS: BP 123/54; PULSE 64; RESP 16; TEMP 36.3; O2SAT 93
[2022-03-01 11:16] VITALS: BP 124/58; PULSE 63; RESP 15; O2SAT 96
[2022-03-01 11:21] VITALS: BP 119/65; PULSE 67; RESP 16; O2SAT 96
[2022-03-01 11:28] VITALS: BP 134/69; PULSE 64; RESP 16; O2SAT 96
[2022-03-01 11:35] VITALS: BP 153/66; PULSE 59; RESP 17; O2SAT 95
== END 2022-03-01 11:58 | disposition home or self-care (01) ==
PROVIDERS: Family Provider Internal Medicine; PCP Internal Medicine; Referring Provider Internal Medicine; Visit Provider Internal Medicine
PROC: 0DJ08ZZ Inspection of Upper Intestinal Tract, Via Natural or Artificial Opening Endoscopic (ICD-10-PCS; CPT 43235; principal; 2022-03-01 10:30)
PROC: 0DJD8ZZ Inspection of Lower Intestinal Tract, Via Natural or Artificial Opening Endoscopic (ICD-10-PCS; CPT 45378; 2022-03-01 10:30)
DX: K64.1 Second degree hemorrhoids (principal); R19.4 Change in bowel habit; R14.0 Abdominal distension (gaseous); K57.30 Diverticulosis of large intestine without perforation or abscess without bleeding; R13.14 Dysphagia, pharyngoesophageal phase; J02.9 Acute pharyngitis, unspecified; R19.8 Other specified symptoms and signs involving the digestive system and abdomen; I10 Essential (primary) hypertension; E03.9 Hypothyroidism, unspecified; E11.9 Type 2 diabetes mellitus without complications; Z79.84 Long term (current) use of oral hypoglycemic drugs; Z85.3 Personal history of malignant neoplasm of breast; Z90.13 Acquired absence of bilateral breasts and nipples; Z87.891 Personal history of nicotine dependence; K29.50 Unspecified chronic gastritis without bleeding; D12.2 Benign neoplasm of ascending colon
CPT/HCPCS: 45385; 43239; J2704; J3010

== ENCOUNTER → 2022-04-04 07:19 | Outpatient (CLI) | payer MEDICARE, OTHER, SELFPAY ==
[2022-04-04 10:00] LABS: Hemoglobin A1C% w Est Avg Glu 6.3 % (4.0-6.0)
[2022-04-04 10:22] LABS: Alanine Aminotransferase 24 IU/L (<35); Albumin 4.1 g/dL (3.5-5.0); Albumin Globulin Ratio 1.3 (1.0-2.8); Alkaline Phosphatase 70 U/L (38-126); Aspartate Aminotransferase 27 IU/L (14-36); BUN Creatinine Ratio 25.4 (6-22); Bilirubin Total 0.6 mg/dL (0.2-1.3); Blood Urea Nitrogen 18 mg/dL (7-17); Calcium 10.1 mg/dL (8.4-10.2); Carbon Dioxide 31 mmol/L (22-32); Chloride 100 mmol/L (98-107); Estimated Glomerular Filt Rate > 60 mL/min (>60); Globulin 3.1 g/dL (1.7-4.1); Glucose 106 mg/dL (80-110); HEMOLYSIS < 15 (0-50); Potassium 4.8 mmol/L (3.4-5.1); Sodium 140 mmol/L (137-145); Total Protein 7.2 g/dL (6.3-8.2)
[2022-04-04 10:52] LABS: Thyroid Stimulating Hormone 1.67 uIU/mL (0.47-4.68)
== END ==
PROVIDERS: Family Provider Internal Medicine; PCP Internal Medicine; Referring Provider Internal Medicine; Visit Provider Internal Medicine
DX: E11.9 Type 2 diabetes mellitus without complications (principal); E78.2 Mixed hyperlipidemia; E03.9 Hypothyroidism, unspecified; I10 Essential (primary) hypertension
CPT/HCPCS: 36415; 80053; 83036; 84439; 84443

== ENCOUNTER → 2022-10-12 07:08 | Outpatient (CLI) | payer MEDICARE, OTHER, SELFPAY ==
[2022-10-12 10:45] LABS: Alanine Aminotransferase 24 IU/L (<35); Albumin 4.3 g/dL (3.5-5.0); Albumin Globulin Ratio 1.3 (1.0-2.8); Alkaline Phosphatase 76 U/L (38-126); Aspartate Aminotransferase 24 IU/L (14-36); BUN Creatinine Ratio 25.3 (6-22); Bilirubin Total 0.5 mg/dL (0.2-1.3); Blood Urea Nitrogen 22 mg/dL (7-17); Calcium 9.5 mg/dL (8.4-10.2); Carbon Dioxide 30 mmol/L (22-32); Chloride 101 mmol/L (98-107); Estimated Glomerular Filt Rate > 60 mL/min (>60); Globulin 3.4 g/dL (1.7-4.1); Glucose 103 mg/dL (80-110); HEMOLYSIS < 15 (0-50); Potassium 4.4 mmol/L (3.4-5.1); Sodium 139 mmol/L (137-145); Total Protein 7.7 g/dL (6.3-8.2)
[2022-10-12 19:08] LABS: Hemoglobin A1C% w Est Avg Glu 6.5 % (4.0-6.0)
== END ==
PROVIDERS: Family Provider Internal Medicine; PCP Internal Medicine; Referring Provider Internal Medicine; Visit Provider Internal Medicine
DX: E11.9 Type 2 diabetes mellitus without complications (principal); I10 Essential (primary) hypertension
CPT/HCPCS: 36415; 80053; 83036

== ENCOUNTER → 2022-11-28 17:03 | Outpatient (CLI) | payer MEDICARE, OTHER, SELFPAY ==
[2022-11-28 17:56] LABS: Hemoglobin A1C% w Est Avg Glu 6.8 % (4.0-6.0)
[2022-11-28 18:11] LABS: Alanine Aminotransferase 24 IU/L (<35); Albumin 4.4 g/dL (3.5-5.0); Albumin Globulin Ratio 1.2 (1.0-2.8); Alkaline Phosphatase 71 U/L (38-126); Aspartate Aminotransferase 26 IU/L (14-36); Bilirubin Total 0.4 mg/dL (0.2-1.3); Blood Urea Nitrogen 26 mg/dL (7-17); Calcium 9.4 mg/dL (8.4-10.2); Carbon Dioxide 31 mmol/L (22-32); Chloride 95 mmol/L (98-107); Estimated Glomerular Filt Rate 49 mL/min (>60); Globulin 3.6 g/dL (1.7-4.1); Glucose 102 mg/dL (80-110); HEMOLYSIS < 15 (0-50); Magnesium 1.9 mg/dL (1.6-2.3); Potassium 3.7 mmol/L (3.4-5.1); Sodium 136 mmol/L (137-145)
[2022-11-28 18:33] LABS: Free T4, Direct Thyroxine 1.62 ng/dL (0.78-2.19)
[2022-11-28 18:47] LABS: Thyroid Stimulating Hormone 1.05 uIU/mL (0.47-4.68)
== END ==
PROVIDERS: Family Provider Internal Medicine; PCP Internal Medicine; Referring Provider Internal Medicine; Visit Provider Internal Medicine
DX: E11.9 Type 2 diabetes mellitus without complications (principal); E03.9 Hypothyroidism, unspecified; I10 Essential (primary) hypertension; E83.42 Hypomagnesemia
CPT/HCPCS: 36415; 80053; 83036; 83735; 84439; 84443

== ENCOUNTER → 2023-02-12 08:02 | Outpatient (CLI) | payer MEDICARE, OTHER, SELFPAY ==
--- NOTE | 2023-02-12 | DI.MG.S_ITS ---
UNILATERAL LEFT DIGITAL SCREENING MAMMOGRAM 3D/2D WITH CAD POST MASTECTOMY: 02/12/2023 CLINICAL: Routine screening. Personal history of right breast cancer. Comparison is made to exams dated: 02/10/2022 mammogram, 02/08/2021 mammogram, and 02/07/2020 mammogram - [facility]. The left breast is heterogeneously dense, which may obscure small masses (category c / 51-75% glandular tissue). Current study was also evaluated with a Computer Aided Detection (CAD) system. There are benign post operative findings in the left breast. No significant masses, calcifications, or other findings are seen in the breast. There has been no significant interval change. IMPRESSION: BENIGN There is no mammographic evidence of malignancy. A 1 year screening mammogram is recommended. This exam was interpreted at Station ID: [id number]. NOTE: For mammograms, a report in lay terms will be sent to the patient. Approximately 15% of breast malignancies will not be visualized mammographically. In the management of a palpable breast mass, a negative mammogram must not discourage biopsy of a clinically suspicious lesion. Electronically Signed By: Corinna cee/rowan:02/12/2023 13:55:46 copy to: Jatin Camarena letter sent: Normal Exam ACR BI-RADS Category 2: Benign Finding(s) 3342F
== END ==
PROVIDERS: Family Provider Internal Medicine; PCP Internal Medicine; Referring Provider Internal Medicine; Visit Provider Internal Medicine
DX: Z12.31 Encounter for screening mammogram for malignant neoplasm of breast (principal); Z85.3 Personal history of malignant neoplasm of breast
CPT/HCPCS: 77063; 77067

== ENCOUNTER → 2023-03-27 16:41 | Outpatient (CLI) | payer MEDICARE, OTHER, SELFPAY ==
[2023-03-27 18:21] LABS: Add Manual Diff / Slide Review NO; Basophils Absolute Auto 100 /uL (0-100); Basophils Percent Auto 1.4 % (0-2); Eosinophils Absolute Auto 200 /uL (0-450); Eosinophils Percent Auto 3.6 % (2-4); Hematocrit 32.7 % (36-46); Hemoglobin 11.6 g/dL (12.0-16.0); Lymphocytes Absolute Auto 1300 /uL (1100-4500); Lymphocytes Percent Auto 20.7 % (25-40); Mean Corpuscular HGB Conc 35.6 % (30-36); Mean Corpuscular Hemoglobin 30.9 PG (26-34); Mean Corpuscular Volume 86.8 fL (80-100); Monocytes Absolute Auto 700 /uL (0-900); Monocytes Percent Auto 11.8 % (3-14); Neutrophils Absolute Auto 3800 /uL (1500-7000); Neutrophils Percent Auto 62.5 % (50-75); Platelet Count 340 X10^3/uL (150-400); Red Blood Cell Count 3.76 X10^6/uL (4.0-5.2); Red Cell Distribution Width 12.6 % (11.6-14.8); White Blood Cell Count 6.1 X10^3/uL (4.5-11.0)
[2023-03-27 18:40] LABS: Alanine Aminotransferase 24 IU/L (<35); Albumin 4.4 g/dL (3.5-5.0); Albumin Globulin Ratio 1.2 (1.0-2.8); Alkaline Phosphatase 71 U/L (38-126); Aspartate Aminotransferase 25 IU/L (14-36); BUN Creatinine Ratio 24.6 (6-22); Bilirubin Total 0.3 mg/dL (0.2-1.3); Blood Urea Nitrogen 33 mg/dL (7-17); C-Reactive Protein Quant < 0.5 mg/dL (<1.0); Calcium 9.7 mg/dL (8.4-10.2); Carbon Dioxide 30 mmol/L (22-32); Chloride 99 mmol/L (98-107); Estimated Glomerular Filt Rate 40 mL/min (>60); Globulin 3.6 g/dL (1.7-4.1); Glucose 118 mg/dL (80-110); HEMOLYSIS < 15 (0-50); Potassium 3.6 mmol/L (3.4-5.1); Sodium 139 mmol/L (137-145)
[2023-03-27 18:53] LABS: Free T4, Direct Thyroxine 1.73 ng/dL (0.78-2.19)
[2023-03-27 19:07] LABS: Thyroid Stimulating Hormone 0.832 uIU/mL (0.47-4.68)
[2023-03-27 21:17] LABS: Erythrocyte Sedimentation Rate 36 MM/HR (0-20)
[2023-03-28 06:05] LABS: Labcorp Hemoglobin (Hb) A1c 6.5 % (4.8-5.6)
== END ==
PROVIDERS: Family Provider Internal Medicine; PCP Internal Medicine; Referring Provider Internal Medicine; Visit Provider Internal Medicine
DX: E03.9 Hypothyroidism, unspecified (principal); E11.9 Type 2 diabetes mellitus without complications; E78.2 Mixed hyperlipidemia; I10 Essential (primary) hypertension
CPT/HCPCS: 36415; 80053; 83036; 84439; 84443; 85025; 85651; 86140

== ENCOUNTER → 2023-04-02 07:20 | Outpatient (CLI) | payer MEDICARE, OTHER, SELFPAY ==
--- NOTE | 2023-04-02 07:21 | DI.US.S_ITS ---
PROCEDURE: US CAROTID DOPPLER BI INDICATIONS: Dizziness TECHNIQUE: Color and pulse Doppler interrogation was performed of both carotid systems, with image documentation and velocity measurements. COMPARISON: None. FINDINGS: Stenosis calculations are based on SRU (Society of Radiologists in Ultrasound) criteria. Right side: Brachial blood pressure: Not obtained Common carotid artery peak systolic velocity: 81 cm/sec. Internal carotid artery peak systolic velocity: 89 cm/sec. Internal carotid artery end diastolic velocity: 26 cm/sec. External carotid artery peak systolic velocity: 84 cm/sec. ICA/CCA peak systolic ratio: 1.1 . Lowery scale imaging description: Mild plaque by for Percent internal carotid artery stenosis: Less than 50% Vertebral artery: Flow direction is antegrade. Left side: Brachial blood pressure: 133/58 mm Hg. Common carotid artery peak systolic velocity: 84 cm/sec. Internal carotid artery peak systolic velocity: 80 cm/sec. Internal carotid artery end diastolic velocity: 21 cm/sec. External carotid artery peak systolic velocity: 101 cm/sec. ICA/CCA peak systolic ratio: 1.0 . Lowery scale imaging description: Mild plaque at bifurcation Percent internal carotid artery stenosis: Less than 50% . Vertebral artery: Flow direction is antegrade. IMPRESSION: Less than 50% stenosis of the internal carotid arteries bilaterally. Dictated by: Sharron Jett M.D. on 04/02/2023 at 11:25 Approved by: Sharron Jett M.D. on 04/02/2023 at 11:58
== END ==
PROVIDERS: Family Provider Internal Medicine; PCP Internal Medicine; Referring Provider Internal Medicine; Visit Provider Internal Medicine
DX: R42 Dizziness and giddiness (principal); I65.23 Occlusion and stenosis of bilateral carotid arteries
CPT/HCPCS: 93880

== ENCOUNTER → 2023-06-07 15:15 | Outpatient (CLI) | payer MEDICARE, OTHER, SELFPAY ==
[2023-06-07 16:16] LABS: Mean Corpuscular HGB Conc 34.4 % (30-36); Mean Corpuscular Hemoglobin 29.7 PG (26-34); Mean Corpuscular Volume 86.4 fL (80-100); Platelet Count 307 X10^3/uL (150-400); Red Blood Cell Count 3.71 X10^6/uL (4.0-5.2); Red Cell Distribution Width 12.8 % (11.6-14.8); White Blood Cell Count 8.9 X10^3/uL (4.5-11.0)
[2023-06-07 16:17] LABS: Add Manual Diff / Slide Review YES
[2023-06-07 16:36] LABS: Alanine Aminotransferase 19 IU/L (<35); Albumin 4.3 g/dL (3.5-5.0); Albumin Globulin Ratio 1.4 (1.0-2.8); Alkaline Phosphatase 77 U/L (38-126); Aspartate Aminotransferase 25 IU/L (14-36); BUN Creatinine Ratio 23.5 (6-22); Bilirubin Total 0.3 mg/dL (0.2-1.3); Blood Urea Nitrogen 35 mg/dL (7-17); Calcium 10.1 mg/dL (8.4-10.2); Carbon Dioxide 27 mmol/L (22-32); Chloride 97 mmol/L (98-107); Estimated Glomerular Filt Rate 35 mL/min (>60); Glucose 124 mg/dL (80-110); HEMOLYSIS < 15 (0-50); Potassium 4.1 mmol/L (3.4-5.1); Sodium 136 mmol/L (137-145); Total Protein 7.3 g/dL (6.3-8.2)
[2023-06-07 16:37] LABS: Erythrocyte Sedimentation Rate 44 MM/HR (0-20)
[2023-06-07 16:43] LABS: Neutrophils Absolute Manual 4984 /uL (3000-5900); Total Cells Counted 100
[2023-06-07 16:48] LABS: RBC Morphology Normal Morphology
[2023-06-07 16:54] LABS: Free T4, Direct Thyroxine 2.83 ng/dL (0.78-2.19)
[2023-06-07 17:08] LABS: Thyroid Stimulating Hormone 0.908 uIU/mL (0.47-4.68)
[2023-06-07 17:29] LABS: Creatinine Urine Random 109.3 mg/dL
[2023-06-07 17:33] LABS: Microalbumi Creatinin Ratio Ur 14.6 ug/mg CR (<30); Microalbumin Urine Random 1.6 mg/dL (0-1.6)
== END ==
PROVIDERS: Family Provider Internal Medicine; PCP Internal Medicine; Referring Provider Internal Medicine; Visit Provider Internal Medicine
DX: E03.9 Hypothyroidism, unspecified (principal); E11.9 Type 2 diabetes mellitus without complications; E78.2 Mixed hyperlipidemia; I10 Essential (primary) hypertension; R94.5 Abnormal results of liver function studies; K58.9 Irritable bowel syndrome, unspecified
CPT/HCPCS: 36415; 80053; 82043; 82570; 84439; 84443; 85007; 85025; 85651

== ENCOUNTER → 2023-07-05 07:24 | Outpatient (CLI) | payer MEDICARE, OTHER, SELFPAY ==
[2023-07-05 08:07] LABS: BUN Creatinine Ratio 24.8 (6-22); Blood Urea Nitrogen 29 mg/dL (7-17); Calcium 9.4 mg/dL (8.4-10.2); Carbon Dioxide 28 mmol/L (22-32); Chloride 94 mmol/L (98-107); Estimated Glomerular Filt Rate 47 mL/min (>60); Glucose 115 mg/dL (80-110); HEMOLYSIS < 15 (0-50); Potassium 4.2 mmol/L (3.4-5.1); Sodium 133 mmol/L (137-145)
[2023-07-05 08:25] LABS: Free T3, Triiodothyronine Free 7.33 pg/mL (2.77-5.27); Free T4, Direct Thyroxine 2.51 ng/dL (0.78-2.19)
[2023-07-05 08:38] LABS: Thyroid Stimulating Hormone 1.08 uIU/mL (0.47-4.68)
== END ==
PROVIDERS: Family Provider Internal Medicine; PCP Internal Medicine; Referring Provider Internal Medicine; Visit Provider Internal Medicine
DX: E03.9 Hypothyroidism, unspecified (principal); N18.31 Chronic kidney disease, stage 3a
CPT/HCPCS: 36415; 80048; 84439; 84443; 84481

== ENCOUNTER → 2023-08-27 07:10 | Outpatient (CLI) | payer MEDICARE, OTHER, SELFPAY ==
[2023-08-27 09:15] LABS: Hemoglobin A1C% w Est Avg Glu 6.3 % (4.0-6.0)
[2023-08-27 09:38] LABS: Alanine Aminotransferase 20 IU/L (<35); Albumin Globulin Ratio 1.3 (1.0-2.8); Alkaline Phosphatase 48 U/L (38-126); Aspartate Aminotransferase 25 IU/L (14-36); BUN Creatinine Ratio 30.3 (6-22); Bilirubin Total 0.5 mg/dL (0.2-1.3); Blood Urea Nitrogen 33 mg/dL (7-17); Carbon Dioxide 30 mmol/L (22-32); Chloride 96 mmol/L (98-107); Cholesterol 176 mg/dL (140-199); Estimated Glomerular Filt Rate 51 mL/min (>60); Globulin 3.2 g/dL (1.7-4.1); Glucose 103 mg/dL (80-110); HDL Cholesterol 40 mg/dL (40-60); HEMOLYSIS < 15 (0-50); LDL Cholesterol Calculated 105 mg/dL (<100); Potassium 4.2 mmol/L (3.4-5.1); Sodium 135 mmol/L (137-145); Total Protein 7.2 g/dL (6.3-8.2); Triglycerides 153 mg/dL (35-150)
== END ==
PROVIDERS: Family Provider Internal Medicine; PCP Internal Medicine; Referring Provider Internal Medicine; Visit Provider Internal Medicine
DX: N18.31 Chronic kidney disease, stage 3a (principal); E11.9 Type 2 diabetes mellitus without complications; I10 Essential (primary) hypertension; E03.9 Hypothyroidism, unspecified; E78.2 Mixed hyperlipidemia
CPT/HCPCS: 36415; 80053; 80061; 83036; 84439; 84443

== ENCOUNTER → 2024-02-11 06:58 | Outpatient (CLI) | payer MEDICARE, OTHER, SELFPAY ==
[2024-02-11 07:54] LABS: Add Manual Diff / Slide Review NO; Basophils Absolute Auto 0 /uL (0-100); Basophils Percent Auto 0.9 % (0-2); Eosinophils Absolute Auto 200 /uL (0-450); Eosinophils Percent Auto 4.6 % (2-4); Hematocrit 30.5 % (36-46); Hemoglobin 10.5 g/dL (12.0-16.0); Lymphocytes Absolute Auto 900 /uL (1100-4500); Lymphocytes Percent Auto 19.2 % (25-40); Mean Corpuscular HGB Conc 34.4 % (30-36); Mean Corpuscular Hemoglobin 29.7 PG (26-34); Mean Corpuscular Volume 86.3 fL (80-100); Monocytes Absolute Auto 500 /uL (0-900); Monocytes Percent Auto 11.2 % (3-14); Neutrophils Absolute Auto 3000 /uL (1500-7000); Neutrophils Percent Auto 64.1 % (50-75); Platelet Count 306 X10^3/uL (150-400); Red Blood Cell Count 3.54 X10^6/uL (4.0-5.2); Red Cell Distribution Width 13.1 % (11.6-14.8); White Blood Cell Count 4.7 X10^3/uL (4.5-11.0)
[2024-02-11 08:02] LABS: Hemoglobin A1C% w Est Avg Glu 6.2 % (4.0-6.0)
[2024-02-11 08:10] LABS: Erythrocyte Sedimentation Rate 13 MM/HR (0-20)
[2024-02-11 08:30] LABS: Alanine Aminotransferase 19 IU/L (<35); Albumin 4.2 g/dL (3.5-5.0); Albumin Globulin Ratio 1.5 (1.0-2.8); Alkaline Phosphatase 60 U/L (38-126); Aspartate Aminotransferase 25 IU/L (14-36); BUN Creatinine Ratio 24.8 (6-22); Bilirubin Total 0.5 mg/dL (0.2-1.3); Blood Urea Nitrogen 29 mg/dL (7-17); C-Reactive Protein Quant < 0.5 mg/dL (<1.0); Calcium 9.5 mg/dL (8.4-10.2); Carbon Dioxide 29 mmol/L (22-32); Chloride 99 mmol/L (98-107); Estimated Glomerular Filt Rate 47 mL/min (>60); Globulin 2.8 g/dL (1.7-4.1); Glucose 101 mg/dL (80-110); HEMOLYSIS < 15 (0-50); Sodium 136 mmol/L (137-145)
[2024-02-11 08:42] LABS: Free T4, Direct Thyroxine 1.52 ng/dL (0.78-2.19)
[2024-02-11 08:56] LABS: Thyroid Stimulating Hormone 2.92 uIU/mL (0.47-4.68)
== END ==
PROVIDERS: Family Provider Internal Medicine; PCP Internal Medicine; Referring Provider Internal Medicine; Visit Provider Internal Medicine
DX: E11.9 Type 2 diabetes mellitus without complications (principal); I10 Essential (primary) hypertension; E03.9 Hypothyroidism, unspecified; E78.2 Mixed hyperlipidemia; D64.9 Anemia, unspecified
CPT/HCPCS: 36415; 80053; 83036; 84439; 84443; 85025; 85651; 86140

== ENCOUNTER → 2024-06-05 15:02 | Outpatient (CLI) | payer MEDICARE, OTHER, SELFPAY ==
[2024-06-05 16:47] LABS: Add Manual Diff / Slide Review NO; Basophils Absolute Auto 100 /uL (0-100); Basophils Percent Auto 0.7 % (0-2); Eosinophils Absolute Auto 100 /uL (0-450); Eosinophils Percent Auto 1.1 % (2-4); Hematocrit 35.4 % (36-46); Hemoglobin 12.2 g/dL (12.0-16.0); Lymphocytes Absolute Auto 500 /uL (1100-4500); Lymphocytes Percent Auto 4.2 % (25-40); Mean Corpuscular HGB Conc 34.4 % (30-36); Mean Corpuscular Hemoglobin 29.2 PG (26-34); Monocytes Absolute Auto 700 /uL (0-900); Monocytes Percent Auto 6.8 % (3-14); Neutrophils Absolute Auto 9500 /uL (1500-7000); Neutrophils Percent Auto 87.2 % (50-75); Platelet Count 320 X10^3/uL (150-400); Red Blood Cell Count 4.17 X10^6/uL (4.0-5.2); Red Cell Distribution Width 13.6 % (11.6-14.8); White Blood Cell Count 10.8 X10^3/uL (4.5-11.0)
[2024-06-05 17:16] LABS: Alanine Aminotransferase 17 IU/L (<35); Albumin 4.6 g/dL (3.5-5.0); Albumin Globulin Ratio 1.4 (1.0-2.8); Alkaline Phosphatase 70 U/L (38-126); Aspartate Aminotransferase 28 IU/L (14-36); BUN Creatinine Ratio 19.2 (6-22); Bilirubin Total 0.7 mg/dL (0.2-1.3); Blood Urea Nitrogen 20 mg/dL (7-17); Calcium 9.4 mg/dL (8.4-10.2); Carbon Dioxide 26 mmol/L (22-32); Chloride 86 mmol/L (98-107); Erythrocyte Sedimentation Rate 57 MM/HR (0-20); Estimated Glomerular Filt Rate 54 mL/min (>60); Globulin 3.2 g/dL (1.7-4.1); Glucose 135 mg/dL (80-110); Sodium 126 mmol/L (137-145); Total Protein 7.8 g/dL (6.3-8.2)
[2024-06-05 17:17] LABS: HEMOLYSIS 62 (0-50)
[2024-06-05 17:24] LABS: Appearance Urine UA CLEAR; Bilirubin Urine UA NEGATIVE (NEGATIVE); Color Urine UA YELLOW; Glucose Urine UA NEGATIVE (Negative); Ketones Urine UA NEGATIVE (NEGATIVE); Leukocyte Esterase Urine UA 3+ (NEGATIVE); Nitrite Urine UA NEGATIVE (Negative); Occult Blood Urine UA NEGATIVE (Negative); Protein Urine UA NEGATIVE (Negative); Specific Gravity Urine UA 1.015 (1.000-1.035); Urobilinogen Urine UA 0.2 E.U./dL (0.2)
[2024-06-05 17:29] LABS: Hemoglobin A1C% w Est Avg Glu 6.2 % (4.0-6.0)
[2024-06-05 17:31] LABS: pH Urine UA 5.5 (4.5-8.0)
[2024-06-05 17:34] LABS: Free T4, Direct Thyroxine 2.16 ng/dL (0.78-2.19)
[2024-06-05 17:35] LABS: Amorphous Sediment Urine 1+; Bacteria Urine Moderate (10-30); RBC Urine None Seen (0-5/HPF); Squamous Epithelial Cell Urine 5-10 /HPF (0-5/HPF); Transitional Epi Cells Urine 1-5/HPF (0-5/HPF); Urine Volume 10mL (spun); WBC Urine 5-10/HPF (0-5/HPF)
[2024-06-05 17:36] LABS: Culture Indicated Urine Specimen Cultured
[2024-06-05 17:48] LABS: Thyroid Stimulating Hormone 2.68 uIU/mL (0.47-4.68)
== END ==
PROVIDERS: Family Provider Internal Medicine; PCP Internal Medicine; Referring Provider Internal Medicine; Visit Provider Internal Medicine
DX: E11.65 Type 2 diabetes mellitus with hyperglycemia (principal); E78.2 Mixed hyperlipidemia; E03.9 Hypothyroidism, unspecified; N18.31 Chronic kidney disease, stage 3a; R10.9 Unspecified abdominal pain; I12.9 Hypertensive chronic kidney disease with stage 1 through stage 4 chronic kidney disease, or unspecified chronic kidney disease
CPT/HCPCS: 36415; 80053; 81001; 83036; 84439; 84443; 85025; 85651; 87086

== ENCOUNTER 2024-06-10 13:47 | Inpatient (IN) | payer MEDICARE, OTHER, SELFPAY ==
[2024-06-10] VITALS (17 sets, daily range): BP systolic 127–195; BP diastolic 64–80; PULSE 59–68; RESP 11–22; TEMP 35.8–36.8; O2SAT 94–100; BMI 20.1; BMI 19.9
--- NOTE | 2024-06-10 14:34 | ED.NAVMDI ---
HPI - Nausea/Vomiting/Diarrhea General Chief complaint: Nausea/Vomiting/Diarrhea Stated complaint: throwing up, Can't eat Time Seen by Provider: 06/10/24 14:34 Source: patient and family Mode of arrival: Ambulatory History of Present Illness HPI Narrative: Patient is a 79-year-old female with past medical history of hypertension hyperlipidemia hypothyroidism diabetes comes into the ED from home for evaluation of decreased appetite, nausea vomiting states that this has been ongoing and intermittent for the past 10 days, states she has seen her primary care doctor for this was sent home with antinausea meds but is having persistent intermittent nausea vomiting. She states that she does not really have abdominal pain, denies any other symptoms. No trauma no falls. States that she was diagnosed with a urinary tract infection and is currently on antibiotics for this. Related Data Previous Rx's Medication Instructions Recorded post mastectomy bra #2 ea 04/11/21 atenolol 50 mg tablet 50 mg PO QDAY #90 tabs 08/01/23 famciclovir 125 mg tablet 125 mg PO DAILY #90 tabs 08/27/23 metformin 500 mg tablet 1,000 mg (2 x 500 mg) PO BID #360 10/30/23 tabs hyoscyamine sulfate 0.125 mg See Rx Instructions .Route 12/03/23 sublingual tablet .COMPLEX #30 ea chlorthalidone 25 mg tablet 25 mg PO DAILY #90 tabs 12/10/23 gabapentin 100 mg capsule 100 mg PO BEDTIME #90 caps 12/10/23 doxycycline hyclate 100 mg tablet 100 mg PO BID 7 days #14 tabs 12/14/23 clobetasol 0.05 % topical cream 1 applic topical .weekly PRN 01/04/24 Vulvar irritation #30 grams lisinopril 40 mg tablet 40 mg PO DAILY #90 tabs 04/07/24 furosemide 20 mg tablet 20 mg PO DAILY #90 tabs 04/24/24 atorvastatin 40 mg tablet (Lipitor) 40 mg PO HS #90 tabs 05/26/24 levothyroxine 88 mcg tablet 88 mcg PO DAILY #90 tabs 06/04/24 ondansetron 4 mg disintegrating 4 mg PO Q6H PRN nausea and 06/05/24 tablet vomiting #20 tabs cefuroxime axetil 500 mg tablet 500 mg PO BID 7 days #14 tabs 06/06/24 Allergies Allergy/AdvReac Type Severity Reaction Status Date / Time levofloxacin [LEVOFLOXACIN] Allergy Intermediate ITCHY HIVES Verified 06/05/24 14:29 vancomycin [VANCOMYCIN] Allergy Intermediate RASH/HIVES Verified 06/05/24 14:29 06/25/17 Sulfa (Sulfonamide Allergy Mild RASH Verified 06/05/24 14:29 Antibiotics) [SULFA (SULFONAMIDE ANTIBIOTICS)] amlodipine AdvReac Intermediate leg Verified 06/05/24 14:29 swelling adhesive [ADHESIVE] AdvReac Mild MAYORGA AND Verified 06/05/24 14:29 IRRITATION FROM TAPE oxycodone [OXYCODONE] AdvReac Mild MAKES HER Verified 06/05/24 14:29 SICK Review of Systems Review of Systems Narrative: HEENT: Denies headache, eye drainage, eye irritation, head trauma, sore throat, voice change Cardiovascular: Denies any chest pain, palpitations, shortness of breath, tachycardia Respiratory: Denies any shortness of breath, cough, wheeze, stridor GI/: Positive nausea vomiting Denies any abdominal pain,diarrhea, bright red blood per rectum, melanotic stools, urinary frequency, urinary retention, dysuria, hematuria MSK: Denies any joint pain, muscle pains, swelling Skin: Denies any rashes, lesions, discoloration Neuro: Denies any headache, lightheadedness, dizziness, fainting, weakness Psych: Denies SI/HI Patient History Medical History (Updated 06/10/24 @ 16:47 by Jairon Daley DO) Chronic renal failure, stage 3a Peripheral neuropathy Controlled type 2 diabetes mellitus Cataract (2007) Chicken pox Measles Rubella Eczema (~1950) Diverticular disease (06/2010) Abnormal LFTs (04/21/11) Vulvovaginitis (04/04/17) Type 2 diabetes mellitus with hyperglycemia, without long-term current use of insulin (01/15/17) Personal history of breast cancer (2007) Mixed hyperlipidemia (06/25/15) 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) Irritable bowel syndrome (09/22/14) Lymphedema of upper extremity (07/24/14) Acquired hypothyroidism (12/24/12) Essential hypertension (04/21/11) Surgical History History of cataract surgery (2007) History of colonoscopy (06/2010) Anesthesia History of thyroidectomy (05/1988) Status post hysterectomy (09/09/13) Status post delivery (1969) Status post delivery (1964) History of total mastectomy (11/28/07) Family History Brother Age: 95 Hypertension Child Age: 54 Hypothyroidism Father Coronary atherosclerosis Hypertension High cholesterol Aneurysm Mother Hypertension Liver disease Grandmother Diabetes mellitus Social History marital status: number of children: 2 household members: spouse lives independently: Yes caregiver/support person: No housing: house pets and animals: Yes education level: college (4 years) 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, TV) Smoking Status: Former smoker Tobacco: How many years used: 20 Smokeless tobacco user: other (Cigarettes) quit status: quit date established (Unsure of date.) second hand exposure: Yes alcohol intake: current substance use type: does not use Smoking Status: Former smoker alcohol intake frequency: holidays/special occasions only Substance Use Type: does not use Exam Narrative Exam Narrative: General: Cooperative, comfortable, well-developed, not in acute distress HEENT: Normocephalic, atraumatic, PERRLA, normal sclera, eyelids normal, Neck: Active full range of motion, atraumatic Chest: Normal to inspection, negative crepitus, no overlying erythema ecchymosis Respiratory: Normal respiratory effort, not in acute respiratory distress, clear to auscultation bilaterally negative cough, wheeze, tachypnea, rhonchi, rales Cardiology: Regular rate rhythm negative gallop, murmur, rubs GI/: Normal to inspection, soft, nonrigid, no tenderness to palpation, exam deferred MSK: Full range of active range of motion of all 4 extremities, atraumatic Skin: No rashes lesions noted Neuro: Alert awake oriented x3, moves all 4 extremities spontaneously, cranial nerves intact, able to answer all questions appropriately follows commands appropriately Psych: Cooperative, negative suicidal or homicidal ideations Initial Vital Signs Initial Vital Signs: Vital Signs Temperature 98.2 F 06/10/24 13:51 Pulse Rate 64 06/10/24 13:51 Respiratory Rate 18 06/10/24 13:51 Blood Pressure 195/80 H 06/10/24 13:51 Pulse Oximetry 98 06/10/24 13:51 Oxygen Delivery Method Room Air 06/10/24 13:51 Course Orders Ordered: ED Orders 06/10/24 14:41 CT abdomen pelvis w con Stat 06/10/24 15:10 Complete Blood Count AUTO DIFF Stat Comprehensive Metabolic Panel Stat Hepatic (Liver) Panel Stat Lipase Stat Discontinued Medications Sodium Chloride (Normal Saline 0.9%) 1,000 mls @ 1,000 mls/hr IV BOLUS ONE Stop: 06/10/24 15:40 Last Admin: 06/10/24 14:51 Dose: 1,000 mls/hr Documented By: DUSTY Ondansetron HCl (Ondansetron 4 Mg/2 Ml Inj) 4 mg IV NOW ONE Stop: 06/10/24 14:42 Last Admin: 06/10/24 14:52 Dose: 4 mg Documented By: DUSTY Vital Signs Vital signs: Vital Signs - 8 hr 06/10/24 13:51 06/10/24 14:33 06/10/24 14:35 Temperature 98.2 F Pulse Rate 64 Respiratory Rate 18 Blood Pressure 195/80 H 168/74 H Pulse Oximetry 98 97 Oxygen Delivery Method Room Air 06/10/24 14:35 06/10/24 15:00 06/10/24 15:30 Temperature Pulse Rate 61 59 L 59 L Respiratory Rate 22 17 Blood Pressure Pulse Oximetry 99 98 98 Oxygen Delivery Method 06/10/24 15:31 06/10/24 15:31 06/10/24 16:00 Temperature Pulse Rate 59 L 68 Respiratory Rate 21 11 L Blood Pressure 136/64 Pulse Oximetry 97 98 Oxygen Delivery Method 06/10/24 16:30 Temperature Pulse Rate 64 Respiratory Rate 13 Blood Pressure Pulse Oximetry 96 Oxygen Delivery Method MDM - Nausea/Vomiting/Diarrhea Differential Diagnosis Differential diagnosis: Likely gastroenteritis, drug-induced nausea and vomiting, dehydration and other (Electrolyte abnormality) Lab Data 06/10/24 15:10 06/10/24 15:10 Labs: Lab Results 06/10/24 Range/Units 15:10 WBC 5.6 (4.5-11.0) X10^3/uL RBC 4.17 (4.0-5.2) X10^6/uL Hgb 12.1 (12.0-16.0) g/dL Hct 33.7 L (36-46) % MCV 80.9 D (80-100) fL MCH 29.0 (26-34) PG MCHC 35.8 (30-36) % RDW 13.2 (11.6-14.8) % Plt Count 402 H (150-400) X10^3/uL Neut % (Auto) 82.1 H (50-75) % Lymph % (Auto) 8.7 L (25-40) % [place] % (Auto) 7.2 (3-14) % Eos % (Auto) 1.6 L (2-4) % Baso % (Auto) 0.4 (0-2) % Neut # (Auto) 4600 (4892-5626) /uL Lymph # (Auto) 500 L (0536-5609) /uL [place] # (Auto) 400 (0-900) /uL Eos # (Auto) 100 (0-450) /uL Baso # (Auto) 0 (0-100) /uL Sodium 115 L* D (137-145) mmol/L Potassium 3.4 (3.4-5.1) mmol/L Chloride 72 L* (98-107) mmol/L Carbon Dioxide 30 (22-32) mmol/L BUN 22 H (7-17) mg/dL Creatinine 1.25 H (0.52-1.04) mg/dL Estimated GFR 43 L (>60) mL/min BUN/Creatinine Ratio 17.6 (6-22) Glucose 114 H (80-110) mg/dL Calcium 9.2 (8.4-10.2) mg/dL Total Bilirubin 0.8 (0.2-1.3) mg/dL Conjugated Bilirubin 0.0 (0.0-0.3) md/dL Unconjugated Bilirubin 0.6 (0.0-1.1) mg/dL AST 26 (14-36) IU/L ALT 18 (<35) IU/L Alkaline Phosphatase 85 (38-126) U/L Total Protein 8.4 H (6.3-8.2) g/dL Albumin 4.4 (3.5-5.0) g/dL Globulin 4.0 (1.7-4.1) g/dL Albumin/Globulin Ratio 1.1 (1.0-2.8) Lipase 136 (23-300) U/L Point of Care Testing Glucose POC [address] scan - abdomen/pelvis: Radiologist's Impression: PROCEDURE: CT ABDOMEN PELVIS W CON INDICATIONS: Abdominal pain nausea vomiting TECHNIQUE: After the administration of intravenous contrast, axial sections acquired from the lung bases to the pubic symphysis. Coronal and sagittal reformats were performed. For radiation dose reduction, the following was used: automated exposure control, adjustment of mA and/or kV according to patient size. COMPARISON: None. FINDINGS: Image quality: Diagnostic. Lower Chest: No significant findings. ABDOMEN: Liver: No solid mass. Gallbladder: No radiopaque gallstones or wall thickening. Biliary ducts: No biliary dilation. Pancreas: No ductal dilation. Spleen: Size is within normal limits. Adrenal Glands: No adrenal nodules. Kidneys and Ureters: No hydronephrosis. No solid mass. No complex renal cystic lesion which requires follow up. Stomach and Bowel: Normal colonic caliber, without significant wall thickening. Colonic diverticulosis without evidence of diverticulitis. Appendix not identified, but there is no pericecal fat stranding to suggest appendicitis. Peritoneum: No abnormal intraperitoneal fluid. No free air. Ventral Wall: No significant ventral hernia. Abdominal Nodes: No retroperitoneal or mesenteric adenopathy by size criteria. Vessels: Aorta and inferior vena cava are normal in size. PELVIS: Pelvic Organs: Unremarkable. Bladder: No bladder wall thickening, accounting for underdistention. Pelvic Nodes: No enlarged lymph nodes. Miscellaneous: No inguinal hernias are seen. Bones: No aggressive osseous abnormality. Degenerative disc disease of the lumbar spine. IMPRESSION: No acute abnormality. No evidence of bowel obstruction or obstructing bowel mass. MDM Narrative Medical decision making narrative: Patient is a 79-year-old female history of hypertension hyperlipidemia hypothyroidism comes in for decreased p.o. intake with nausea vomiting ongoing intermittent for [address] scan without any abnormal findings, lab work did show hyponatremia at 115, chloride 72, more likely secondary to decreased p.o. intake, excessive nausea vomiting. Patient was given 1 L normal saline in the emergency department. Given patient with significant amount of pressure-like derangement and persistent nausea vomiting, patient will require admission to the hospital for electrolyte replacement and symptom management. The patient's management plan was discussed Dr. Camarena, who agrees to admit the patient to their service and assumes care of this patient at this time. Full admission orders will be placed by the primary team. Discharge Plan Departure Patient Disposition: Admitted As Inpatient Clinical Impression: Acute hyponatremia, Hypochloremia, Nausea & vomiting Admit Date/Time: 06/10/24 16:44 Admit Provider: Jatin Camarena
--- NOTE | 2024-06-10 14:41 | DI.CT.S_ITS ---
PROCEDURE: CT ABDOMEN PELVIS W CON INDICATIONS: Abdominal pain nausea vomiting TECHNIQUE: After the administration of intravenous contrast, axial sections acquired from the lung bases to the pubic symphysis. Coronal and sagittal reformats were performed. For radiation dose reduction, the following was used: automated exposure control, adjustment of mA and/or kV according to patient size. COMPARISON: None. FINDINGS: Image quality: Diagnostic. Lower Chest: No significant findings. ABDOMEN: Liver: No solid mass. Gallbladder: No radiopaque gallstones or wall thickening. Biliary ducts: No biliary dilation. Pancreas: No ductal dilation. Spleen: Size is within normal limits. Adrenal Glands: No adrenal nodules. Kidneys and Ureters: No hydronephrosis. No solid mass. No complex renal cystic lesion which requires follow up. Stomach and Bowel: Normal colonic caliber, without significant wall thickening. Colonic diverticulosis without evidence of diverticulitis. Appendix not identified, but there is no pericecal fat stranding to suggest appendicitis. Peritoneum: No abnormal intraperitoneal fluid. No free air. Ventral Wall: No significant ventral hernia. Abdominal Nodes: No retroperitoneal or mesenteric adenopathy by size criteria. Vessels: Aorta and inferior vena cava are normal in size. PELVIS: Pelvic Organs: Unremarkable. Bladder: No bladder wall thickening, accounting for underdistention. Pelvic Nodes: No enlarged lymph nodes. Miscellaneous: No inguinal hernias are seen. Bones: No aggressive osseous abnormality. Degenerative disc disease of the lumbar spine. IMPRESSION: No acute abnormality. No evidence of bowel obstruction or obstructing bowel mass. Dictated by: Byron Ford M.D. on 06/10/2024 at 16:17 Approved by: Byron Ford M.D. on 06/10/2024 at 16:20
[2024-06-10] MEDS: SODIUM CHLORIDE 0.9% 1,000 ML 1000 ML IV (14:51)
[2024-06-10] MEDS: ONDANSETRON 4 MG/2 ML INJ IV (14:52)
[2024-06-10 15:20] LABS: Add Manual Diff / Slide Review NO; Basophils Absolute Auto 0 /uL (0-100); Basophils Percent Auto 0.4 % (0-2); Eosinophils Absolute Auto 100 /uL (0-450); Eosinophils Percent Auto 1.6 % (2-4); Hematocrit 33.7 % (36-46); Hemoglobin 12.1 g/dL (12.0-16.0); Lymphocytes Absolute Auto 500 /uL (1100-4500); Lymphocytes Percent Auto 8.7 % (25-40); Mean Corpuscular HGB Conc 35.8 % (30-36); Mean Corpuscular Volume 80.9 fL (80-100); Monocytes Absolute Auto 400 /uL (0-900); Monocytes Percent Auto 7.2 % (3-14); Neutrophils Absolute Auto 4600 /uL (1500-7000); Neutrophils Percent Auto 82.1 % (50-75); Platelet Count 402 X10^3/uL (150-400); Red Blood Cell Count 4.17 X10^6/uL (4.0-5.2); Red Cell Distribution Width 13.2 % (11.6-14.8); White Blood Cell Count 5.6 X10^3/uL (4.5-11.0)
[2024-06-10 15:33] LABS: Albumin 4.4 g/dL (3.5-5.0); Albumin Globulin Ratio 1.1 (1.0-2.8); Alkaline Phosphatase 85 U/L (38-126); Aspartate Aminotransferase 26 IU/L (14-36); BUN Creatinine Ratio 17.6 (6-22); Bilirubin Total 0.8 mg/dL (0.2-1.3); Bilirubin Unconjugated 0.6 mg/dL (0.0-1.1); Blood Urea Nitrogen 22 mg/dL (7-17); Calcium 9.2 mg/dL (8.4-10.2); Carbon Dioxide 30 mmol/L (22-32); Estimated Glomerular Filt Rate 43 mL/min (>60); Glucose 114 mg/dL (80-110); HEMOLYSIS < 15 (0-50); Total Protein 8.4 g/dL (6.3-8.2)
[2024-06-10 16:05] LABS: Alanine Aminotransferase 18 IU/L (<35); Lipase 136 U/L (23-300)
[2024-06-10 16:19] LABS: Potassium 3.4 mmol/L (3.4-5.1)
[2024-06-10 16:22] LABS: Chloride 72 mmol/L (98-107); Sodium 115 mmol/L (137-145)
--- NOTE | 2024-06-10 16:50 | P.HP_ITS ---
History of Present Illness History of Present Illness Date Patient Seen: 06/10/24 Time Patient Seen: 16:50 Chief complaint: throwing up, Can't eat Narrative: 79-year-old female with 10 days or so of symptoms began with dizziness sounds more like vertigo. She was treated as though we vertigo she seem to improve slightly. Was seen in the clinic at the end of last week and some lab work was done given her persistent symptoms. She had a positive UA but negative urine culture was started on antibiotics anyway. She had somewhat suppressed sodium compared to previous but at 0126 not felt to be an etiology for symptoms She persists with symptoms to the point where she needs to be seen and re- evaluated. She came to the ER for re-evaluation where lab work showed her sodium now 115 with a bit of a low chloride as well. Also with a slight bump in her creatinine Otherwise CBC was unremarkable and CT scan of the abdomen and pelvis was unremarkable She was given some IV fluid in the ER admitted for continued control of her symptoms. She has been having more nausea and vomiting to go along with a generalized weakness and dizziness as well [facility] Medical History Chronic renal failure, stage 3a Peripheral neuropathy Controlled type 2 diabetes mellitus Cataract (2007) Chicken pox Measles Rubella Eczema (~1950) Diverticular disease (06/2010) Abnormal LFTs (04/21/11) Vulvovaginitis (04/04/17) Type 2 diabetes mellitus with hyperglycemia, without long-term current use of insulin (01/15/17) Personal history of breast cancer (2007) Mixed hyperlipidemia (06/25/15) 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) Irritable bowel syndrome (09/22/14) Lymphedema of upper extremity (07/24/14) Acquired hypothyroidism (12/24/12) Essential hypertension (04/21/11) Surgical History History of cataract surgery (2007) History of colonoscopy (06/2010) Anesthesia History of thyroidectomy (05/1988) Status post hysterectomy (09/09/13) Status post delivery (1969) Status post delivery (1964) History of total mastectomy (11/28/07) Family History Brother Age: 95 Hypertension Child Age: 54 Hypothyroidism Father Coronary atherosclerosis Hypertension High cholesterol Aneurysm Mother Hypertension Liver disease Grandmother Diabetes mellitus Social History marital status: number of children: 2 household members: spouse lives independently: Yes caregiver/support person: No housing: house pets and animals: Yes education level: college (4 years) 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, 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: [employer] travel history: over 6 months ago ([place], no longer travel) leisure activities: exercise (Walking), 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, TV) Smoking Status: Former smoker Tobacco: How many years used: 20 Smokeless tobacco user: other (Cigarettes) quit status: quit date established (Unsure of date.) second hand exposure: Yes alcohol intake: current substance use type: does not use Meds Home Medications and Allergies Home Medications Medication Instructions Recorded Confirmed Type post mastectomy bra #2 ea 04/11/21 06/05/24 Rx atenolol 50 mg tablet 50 mg PO QDAY #90 tabs 08/01/23 06/05/24 Rx famciclovir 125 mg tablet 125 mg PO DAILY #90 tabs 08/27/23 06/05/24 Rx metformin 500 mg tablet 1,000 mg (2 x 500 mg) PO BID #360 10/30/23 06/05/24 Rx tabs hyoscyamine sulfate 0.125 mg See Rx Instructions .Route 12/03/23 06/05/24 Rx sublingual tablet .COMPLEX #30 ea chlorthalidone 25 mg tablet 25 mg PO DAILY #90 tabs 12/10/23 06/05/24 Rx gabapentin 100 mg capsule 100 mg PO BEDTIME #90 caps 12/10/23 06/05/24 Rx doxycycline hyclate 100 mg tablet 100 mg PO BID 7 days #14 tabs 12/14/23 06/05/24 Rx clobetasol 0.05 % topical cream 1 applic topical .weekly PRN 01/04/24 06/05/24 Rx Vulvar irritation #30 grams lisinopril 40 mg tablet 40 mg PO DAILY #90 tabs 04/07/24 06/05/24 Rx furosemide 20 mg tablet 20 mg PO DAILY #90 tabs 04/24/24 06/05/24 Rx atorvastatin 40 mg tablet (Lipitor) 40 mg PO HS #90 tabs 05/26/24 06/05/24 Rx levothyroxine 88 mcg tablet 88 mcg PO DAILY #90 tabs 06/04/24 06/05/24 Rx ondansetron 4 mg disintegrating 4 mg PO Q6H PRN nausea and 06/05/24 06/05/24 Rx tablet vomiting #20 tabs cefuroxime axetil 500 mg tablet 500 mg PO BID 7 days #14 tabs 06/06/24 Rx Allergies Allergy/AdvReac Type Severity Reaction Status Date / Time levofloxacin [LEVOFLOXACIN] Allergy Intermediate ITCHY HIVES Verified 06/05/24 14:29 vancomycin [VANCOMYCIN] Allergy Intermediate RASH/HIVES Verified 06/05/24 14:29 06/25/17 Sulfa (Sulfonamide Allergy Mild RASH Verified 06/05/24 14:29 Antibiotics) [SULFA (SULFONAMIDE ANTIBIOTICS)] amlodipine AdvReac Intermediate leg Verified 06/05/24 14:29 swelling adhesive [ADHESIVE] AdvReac Mild MAYORGA AND Verified 06/05/24 14:29 IRRITATION FROM TAPE oxycodone [OXYCODONE] AdvReac Mild MAKES HER Verified 06/05/24 14:29 SICK Review of Systems Review of Systems ROS: Yes All systems reviewed with the patient and are negative except as otherwise documented Exam Vital Signs (past 8 hours): - 06/10/24 13:51 06/10/24 14:33 06/10/24 14:35 Temperature 98.2 F Pulse Rate 64 Respiratory Rate 18 Blood Pressure 195/80 H 168/74 H Pulse Oximetry 98 97 Oxygen Delivery Method Room Air 06/10/24 14:35 06/10/24 15:00 06/10/24 15:30 Temperature Pulse Rate 61 59 L 59 L Respiratory Rate 22 17 Blood Pressure Pulse Oximetry 99 98 98 Oxygen Delivery Method 06/10/24 15:31 06/10/24 15:31 06/10/24 16:00 Temperature Pulse Rate 59 L 68 Respiratory Rate 21 11 L Blood Pressure 136/64 Pulse Oximetry 97 98 Oxygen Delivery Method 06/10/24 16:30 Temperature Pulse Rate 64 Respiratory Rate 13 Blood Pressure Pulse Oximetry 96 Oxygen Delivery Method Oxygen Delivery Method Room Air Narrative Exam Narrative: Elderly female in no obvious distress actually looking better than expected lying in hospital rney in the emergency department HEENT-unremarkable Neck-no lymphadenopathy no bruits Lungs-clear with good breath sounds no wheezes no crackles Heart-regular rate and rhythm no murmur rub or gallop Abdomen-soft nontender nondistended no hepatosplenomegaly no masses palpable Extremities-no cyanosis clubbing or edema Objective Imaging CT scan - abdomen: Radiologist's impression: PROCEDURE: CT ABDOMEN PELVIS W CON INDICATIONS: Abdominal pain nausea vomiting TECHNIQUE: After the administration of intravenous contrast, axial sections acquired from the lung bases to the pubic symphysis. Coronal and sagittal reformats were performed. For radiation dose reduction, the following was used: automated exposure control, adjustment of mA and/or kV according to patient size. COMPARISON: None. FINDINGS: Image quality: Diagnostic. Lower Chest: No significant findings. ABDOMEN: Liver: No solid mass. Gallbladder: No radiopaque gallstones or wall thickening. Biliary ducts: No biliary dilation. Pancreas: No ductal dilation. Spleen: Size is within normal limits. Adrenal Glands: No adrenal nodules. Kidneys and Ureters: No hydronephrosis. No solid mass. No complex renal cystic lesion which requires follow up. Stomach and Bowel: Normal colonic caliber, without significant wall thickening. Colonic diverticulosis without evidence of diverticulitis. Appendix not identified, but there is no pericecal fat stranding to suggest appendicitis. Peritoneum: No abnormal intraperitoneal fluid. No free air. Ventral Wall: No significant ventral hernia. Abdominal Nodes: No retroperitoneal or mesenteric adenopathy by size criteria. Vessels: Aorta and inferior vena cava are normal in size. PELVIS: Pelvic Organs: Unremarkable. Bladder: No bladder wall thickening, accounting for underdistention. Pelvic Nodes: No enlarged lymph nodes. Miscellaneous: No inguinal hernias are seen. Bones: No aggressive osseous abnormality. Degenerative disc disease of the lumbar spine. IMPRESSION: No acute abnormality. No evidence of bowel obstruction or obstructing bowel mass. Labs 06/10/24 15:10 06/10/24 15:10 Labs: Laboratory Results - last 24 hr 06/10/24 15:10 WBC 5.6 RBC 4.17 Hgb 12.1 Hct 33.7 L MCV 80.9 D MCH 29.0 MCHC 35.8 RDW 13.2 Plt Count 402 H Neut % (Auto) 82.1 H Lymph % (Auto) 8.7 L Stanley % (Auto) 7.2 Eos % (Auto) 1.6 L Baso % (Auto) 0.4 Neut # (Auto) 4600 Lymph # (Auto) 500 L Stanley # (Auto) 400 Eos # (Auto) 100 Baso # (Auto) 0 Sodium 115 L* D Potassium 3.4 Chloride 72 L* Carbon Dioxide 30 BUN 22 H Creatinine 1.25 H Estimated GFR 43 L BUN/Creatinine Ratio 17.6 Glucose 114 H Calcium 9.2 Total Bilirubin 0.8 Conjugated Bilirubin 0.0 Unconjugated Bilirubin 0.6 AST 26 ALT 18 Alkaline Phosphatase 85 Total Protein 8.4 H Albumin 4.4 Globulin 4.0 Albumin/Globulin Ratio 1.1 Lipase 136 Assessment & Plan Assessment & Plan narrative: 1. Hyponatremia-likely combination of issues including her nausea vomiting her thiazide diuretic as well as her intermittent furosemide as potential sources of her hyponatremia. Probably all these things together. Her symptoms maybe more due to the hyponatremia than anything else. In retrospect maybe even her sodium of 126 when checked via the clinic last week may have been a source of symptoms She was already received vigorous IV fluids in the ER will continue with normal saline but at a lower rate and recheck her numbers in the morning trying to avoid too rapid of replacement of her sodium. I would aim for a sodium of about 120-121 by tomorrow morning Also continue with antiemetics and limited diet as she was able to tolerate. If she develops further symptoms may need further evaluation for possible source of her other symptoms 2. Diabetes-patient with on insulin-dependent diabetes. Will have limited diet and keep her off her metformin for now but continue her on insulin coverage and as her diet advanced will plan on carbohydrate consistent diet 3. Hypertension-patient's blood pressure numbers seem to be stable. Continue her lisinopril and her beta-go therapy for now 4. Acute kidney injury-as above creatinine bumped slightly. Expect this to improve as she was rehydrated in effort to correct her hyponatremia 5. Hypothyroidism-continue patient's usual thyroid replacement dose 6. History of breast cancer with lymphedema after surgery-avoid checking blood pressure ineffective arm 7. Code status-full code per patient preference 8. VTE prophylaxis-Lovenox. Renal function not severely affected enough to alter her dose of Lovenox 9. Possible UTI-patient with abnormal UA last week at time of her clinic visit, urine culture subsequently has had no growth. She has completed almost 7 days' worth of antibiotic therapy. In that setting I do not believe she needs additional antibiotic therapy at this time. Time-Based Coding :: [TOTAL MINUTES] spent with patient and on the chart (including review of chart, obtaining history, exam, reviewing outside data, placing orders, documenting exam and treatment plan, and counseling patient) on [DATE]. PROFEE Charge Codes Initial inpatient/observation care: 73377
[2024-06-10] MEDS: SODIUM CHLORIDE 0.9% 1,000 ML 100 ML IV (18:34)
[2024-06-10 20:34] LABS: MRSA (Nasal) PCR NOT DETECTED (Not Detect)
[2024-06-10] MEDS: ACETAMINOPHEN 325 MG TABLET 650 MG PO (20:54)
[2024-06-10] MEDS: ATORVASTATIN 20 MG TABLET 40 MG PO (20:55)
[2024-06-11] VITALS (13 sets, daily range): BP systolic 128–154; BP diastolic 62–67; PULSE 57–64; RESP 14–18; TEMP 35.7–36.9; O2SAT 92–99
[2024-06-11] MEDS: SODIUM CHLORIDE 0.9% 1,000 ML 100 ML IV (04:15)
[2024-06-11] MEDS: LEVOTHYROXINE 88 MCG TABLET PO (05:45)
[2024-06-11 05:48] LABS: BUN Creatinine Ratio 14.5 (6-22); Blood Urea Nitrogen 16 mg/dL (7-17); Calcium 8.1 mg/dL (8.4-10.2); Carbon Dioxide 25 mmol/L (22-32); Chloride 82 mmol/L (98-107); Estimated Glomerular Filt Rate 50 mL/min (>60); Glucose 85 mg/dL (80-110); HEMOLYSIS < 15 (0-50); Potassium 3.3 mmol/L (3.4-5.1)
[2024-06-11 06:00] LABS: Sodium 117 mmol/L (137-145)
[2024-06-11 06:29] LABS: Basophils Absolute Auto 100 /uL (0-100); Basophils Percent Auto 1.2 % (0-2); Eosinophils Absolute Auto 100 /uL (0-450); Eosinophils Percent Auto 2.7 % (2-4); Hematocrit 29.8 % (36-46); Hemoglobin 10.7 g/dL (12.0-16.0); Lymphocytes Absolute Auto 600 /uL (1100-4500); Lymphocytes Percent Auto 13.8 % (25-40); Mean Corpuscular HGB Conc 36.1 % (30-36); Mean Corpuscular Hemoglobin 29.3 PG (26-34); Mean Corpuscular Volume 81.2 fL (80-100); Monocytes Absolute Auto 600 /uL (0-900); Monocytes Percent Auto 12.4 % (3-14); Neutrophils Absolute Auto 3300 /uL (1500-7000); Neutrophils Percent Auto 69.9 % (50-75); Platelet Count 323 X10^3/uL (150-400); Red Blood Cell Count 3.66 X10^6/uL (4.0-5.2); Red Cell Distribution Width 13.2 % (11.6-14.8); White Blood Cell Count 4.7 X10^3/uL (4.5-11.0)
--- NOTE | 2024-06-11 06:36 | PC.NURSE ---
pt has not had n/v/d this shift; she has voided and passed flatus; he tolerated nelli jessika and half a container of jello; she urinated this morning but still felt as if she had to go more; she was bladder scanned 740ml; she got back uo to [facility] and voided another 200ml; she said she no longer feels the urge to urinate and will try again in a bit; she was medicated at 2100 for a headache which was relieved with Tylenol and has not recurred; sodium this morning has increased to 117
[2024-06-11 06:40] LABS: Add Manual Diff / Slide Review SLIDE REVIEW
[2024-06-11 06:42] LABS: Rouleaux 2+
--- NOTE | 2024-06-11 06:45 | P.PN_ITS ---
Subjective Subjective Date Patient Seen: 06/11/24 Time Patient Seen: 06:46 Interval history: Still feels quite weak Has not required any Zofran overnight. Requesting an upgrade in her diet Difficulty sleeping Exam Vital Signs (past 8 hours): - 06/11/24 02:00 Temperature 96.2 F L Pulse Rate 60 Respiratory Rate 17 Blood Pressure 140/64 Pulse Oximetry 96 Oxygen Flow Rate 0 Oxygen Delivery Method Room Air Oxygen Flow Rate 0 Objective Labs 06/11/24 05:00 06/11/24 05:00 Labs: Laboratory Results - last 24 hr 06/10/24 06/10/24 06/11/24 15:10 18:19 05:00 WBC 5.6 4.7 RBC 4.17 3.66 L Hgb 12.1 10.7 L Hct 33.7 L 29.8 L MCV 80.9 D 81.2 MCH 29.0 29.3 MCHC 35.8 36.1 H RDW 13.2 13.2 Plt Count 402 H 323 Neut % (Auto) 82.1 H 69.9 Lymph % (Auto) 8.7 L 13.8 L [place] % (Auto) 7.2 12.4 Eos % (Auto) 1.6 L 2.7 Baso % (Auto) 0.4 1.2 Neut # (Auto) 4600 3300 Lymph # (Auto) 500 L 600 L [place] # (Auto) 400 600 Eos # (Auto) 100 100 Baso # (Auto) 0 100 RBC Morphology See below Rouleaux 2+ H Sodium 115 L* D 117 L* Potassium 3.4 3.3 L Chloride 72 L* 82 L Carbon Dioxide 30 25 BUN 22 H 16 Creatinine 1.25 H 1.10 H Estimated GFR 43 L 50 L BUN/Creatinine Ratio 17.6 14.5 Glucose 114 H 85 Calcium 9.2 8.1 L Total Bilirubin 0.8 Conjugated Bilirubin 0.0 Unconjugated Bilirubin 0.6 AST 26 ALT 18 Alkaline Phosphatase 85 Total Protein 8.4 H Albumin 4.4 Globulin 4.0 Albumin/Globulin Ratio 1.1 Lipase 136 Nasal Screen MRSA (PCR) Not detected [facility] Medical History Chronic renal failure, stage 3a Peripheral neuropathy Controlled type 2 diabetes mellitus Cataract (2007) Chicken pox Measles Rubella Eczema (~1950) Diverticular disease (06/2010) Abnormal LFTs (04/21/11) Vulvovaginitis (04/04/17) Type 2 diabetes mellitus with hyperglycemia, without long-term current use of insulin (01/15/17) Personal history of breast cancer (2007) Mixed hyperlipidemia (06/25/15) 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) Irritable bowel syndrome (09/22/14) Lymphedema of upper extremity (07/24/14) Acquired hypothyroidism (12/24/12) Essential hypertension (04/21/11) Surgical History History of cataract surgery (2007) History of colonoscopy (06/2010) Anesthesia History of thyroidectomy (05/1988) Status post hysterectomy (09/09/13) Status post delivery (1969) Status post delivery (1964) History of total mastectomy (11/28/07) Family History Brother Age: 95 Hypertension Child Age: 54 Hypothyroidism Father Coronary atherosclerosis Hypertension High cholesterol Aneurysm Mother Hypertension Liver disease Grandmother Diabetes mellitus Social History marital status: number of children: 2 household members: spouse lives independently: Yes caregiver/support person: No housing: house pets and animals: Yes education level: college (4 years) 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 Hyponatremia-improved slightly. I am going to increase her IV fluid rate. That is only been about 12 hours on IV fluids so not overly discouraged by the rate of improvement in her hyponatremia I did not noted in her H and P yesterday but there does not appear to be any outside etiology for hyponatremia such as hyperglycemia or other solutes. Appears to be hypotonic hyponatremia likely related to her hypovolemia and her thiazide diuretic 2. Hypokalemia-will replace parenterally as well rechecked tomorrow 3. Nausea vomiting-okay to advance diet carefully and slowly 4. Hypertension-patient intermittently hypertensive but continue her usual meds today 5. Diabetes-blood sugar numbers have been okay. No change in plan. I am increasing her diet so will see how that goes Time-Based Coding :: [TOTAL MINUTES] spent with patient and on the chart (including review of chart, obtaining history, exam, reviewing outside data, placing orders, documenting exam and treatment plan, and counseling patient) on [DATE]. Quality VTE Deep Vein Thrombosis/Pulmonary Embolism Present on Admission: No
[2024-06-11] MEDS: POTASSIUM CHLORIDE IN WATER 10 MEQ/100 ML PIGGYBACK 100 MEQ IV ×6 (08:00→13:26)
[2024-06-11] MEDS: atenoloL 50 MG TABLET PO (08:09)
[2024-06-11] MEDS: lisinopriL 20 MG TABLET 40 MG PO (08:09)
[2024-06-11] MEDS: ENOXAPARIN 40 MG/0.4 ML SYRINGE SUBCUT (08:10)
--- NOTE | 2024-06-11 10:31 | CM.DANOTE ---
Initial DCP Assessment Note Pt is a 79 yo female, resident of [place], arrives feeling ill for days, inability to eat, N/V, admitted for further work up and management of hyponatremia, Hypokalemia and chronic conditions. PCP: Jatin Camarena Payer: JULIAN/Lynne Reviewed chart, met with patient and her friend Kim. Patient reports she lives independently with spouse, active, drives, no hx of HH or SNF. Patient anticipates returning home w/her friends and family and currently denies needs from this [employer]. Patient appreciative for the visit. No barriers identified at this time to patient's safe discharge home w/family to assist; close outpatient f/u recommended. CM team will plan to follow clinical course closely in case any DC needs or concerns arise. 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 No History Provided By Patient,Friend,Medical Record Prior Living Arrangements House Household Members spouse Type of transporation used prior to Drives own vehicle admit Independent with ADL's Yes Is patient alert and oriented? Yes Barriers to Discharge No Discharge Plan Home Transportation Arrangement Spouse Referrals Initiated None needed
[2024-06-11] MEDS: SODIUM CHLORIDE 0.9% 1,000 ML 125 ML IV ×2 (12:12→21:03)
--- NOTE | 2024-06-11 14:00 | DIET.CONS ---
Dietary Consultation Note Admission Date: 06/10/2024 16:44 Assessment: 79 y F admitted for N/V. Nutrition consulted for assessed at high risk. Met w/ pt at bedside. Reports decreased appetite for 1.5 wks prior to admission where she had small bites of different types of food, but would vomit them back up. Notes in last few years has had aversion to some foods - eggs, dairy products, and has had some gradual weight loss. Notes an improvement in appetite now, but didn't like food options on lunch tray (dairy, yogurt, cream of chicken). PMH of diabetes. A1c 6.2%. NFPE not performed, pt requesting help to go to bathroom. Ht: 157.48 cm Wt: 49.5 kg BMI: 19.9 UBW: 50 kg past year, per EMR-gradual drop in weight since 2019 where she was 60 kg Last BM: 06/11/24 (06/11/24 12:00) MNA: 10 Thang Score: 20 Diet: 06/11/24 Lunch Full Liquid Diet Diet Modifications: saltines are okay as well Nutrition Percent Meal Consumed 25% 06/11/24 09:54 Labs: RBC 3.66 X10^6/uL (4.0-5.2) L 06/11/24 05:00 Hgb 10.7 g/dL (12.0-16.0) L 06/11/24 05:00 Hct 29.8 % (36-46) L 06/11/24 05:00 Creatinine 1.10 mg/dL (0.52-1.04) H 06/11/24 05:00 Nutrition Diagnosis: Inadequate oral intakes r/t decreased appetite with nausea and vomiting aeb pt reports <50% of EER for 1.5 wks Interventions: -Coordinated food dislikes/aversions w/ kitchen -Discussed addition of snack to usual meals upon d/c and options d/t underweight BMI for age -Ensure clear or soymilk with meals Monitoring/Evaluations: po intakes, diet progression Electronically Signed by: Megan Funes 06/11/24 14:00 Clinical Dietitian [address] [address]
[2024-06-11] MEDS: INSULIN LISPRO 100 UNIT/ML 3ML VIAL SUBCUT (20:53)
[2024-06-11] MEDS: ATORVASTATIN 20 MG TABLET 40 MG PO (20:56)
[2024-06-11] MEDS: MELATONIN 3 MG TABLET 6 MG PO (22:37)
--- NOTE | 2024-06-11 22:37 | PC.NURSE ---
Pt's bracelet was placed inside a specimen cup in her coat pocket
[2024-06-11 22:59] LABS: Blood Urea Nitrogen 10 mg/dL (7-17); Calcium 8.4 mg/dL (8.4-10.2); Carbon Dioxide 25 mmol/L (22-32); Chloride 95 mmol/L (98-107); Estimated Glomerular Filt Rate > 60 mL/min (>60); Glucose 120 mg/dL (80-110); HEMOLYSIS < 15 (0-50); Potassium 3.9 mmol/L (3.4-5.1); Sodium 127 mmol/L (137-145)
[2024-06-12] VITALS (14 sets, daily range): BP systolic 138–153; BP diastolic 63–87; PULSE 57–74; RESP 13–26; TEMP 36.2–36.9; O2SAT 83–99
[2024-06-12] MEDS: LEVOTHYROXINE 88 MCG TABLET PO (05:54)
[2024-06-12] MEDS: SODIUM CHLORIDE 0.9% 1,000 ML 125 ML IV (06:51)
[2024-06-12 06:56] LABS: Magnesium 1.7 mg/dL (1.6-2.3)
[2024-06-12 06:58] LABS: Blood Urea Nitrogen 8 mg/dL (7-17); Calcium 8.2 mg/dL (8.4-10.2); Carbon Dioxide 22 mmol/L (22-32); Chloride 100 mmol/L (98-107); Estimated Glomerular Filt Rate > 60 mL/min (>60); Glucose 81 mg/dL (80-110); HEMOLYSIS < 15 (0-50); Potassium 3.6 mmol/L (3.4-5.1); Sodium 129 mmol/L (137-145)
--- NOTE | 2024-06-12 07:45 | PM.PN.1 ---
Subjective Subjective Date Patient Seen: 06/12/24 Time Patient Seen: 07:45 Interval history: Patient is feeling better. Sitting up in the bedside chair. She has been eating without any GI symptoms at all. Still been on a liquid diet however Got up on her own to the bathroom overnight without difficulty (which was not advised) Exam Vital Signs (past 8 hours): - 06/12/24 06:00 Temperature 98.5 F Pulse Rate 61 Respiratory Rate 20 Blood Pressure 153/70 H Pulse Oximetry 96 Oxygen Flow Rate 0 Oxygen Delivery Method Room Air Oxygen Flow Rate 0 Objective Labs 06/11/24 05:00 06/12/24 06:15 Labs: Laboratory Results - last 24 hr 06/11/24 06/12/24 22:33 06:15 Sodium 127 L D 129 L Potassium 3.9 3.6 Chloride 95 L 100 Carbon Dioxide 25 22 BUN 10 8 Creatinine 0.91 0.80 Estimated GFR > 60 > 60 BUN/Creatinine Ratio 11.0 10.0 Glucose 120 H 81 Calcium 8.4 8.2 L Magnesium 1.7 PFSH Medical History Chronic renal failure, stage 3a Peripheral neuropathy Controlled type 2 diabetes mellitus Cataract (2007) Chicken pox Measles Rubella Eczema (~1950) Diverticular disease (06/2010) Abnormal LFTs (04/21/11) Vulvovaginitis (04/04/17) Type 2 diabetes mellitus with hyperglycemia, without long-term current use of insulin (01/15/17) Personal history of breast cancer (2007) Mixed hyperlipidemia (06/25/15) 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) Irritable bowel syndrome (09/22/14) Lymphedema of upper extremity (07/24/14) Acquired hypothyroidism (12/24/12) Essential hypertension (04/21/11) Surgical History History of cataract surgery (2007) History of colonoscopy (06/2010) Anesthesia History of thyroidectomy (05/1988) Status post hysterectomy (09/09/13) Status post delivery (1969) Status post delivery (1964) History of total mastectomy (11/28/07) Family History Brother Age: 95 Hypertension Child Age: 54 Hypothyroidism Father Coronary atherosclerosis Hypertension High cholesterol Aneurysm Mother Hypertension Liver disease Grandmother Diabetes mellitus Social History marital status: number of children: 2 household members: spouse lives independently: Yes caregiver/support person: No housing: house pets and animals: Yes education level: college (4 years) 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 Hyponatremia-now 129 for sodium. I think we need to decrease her IV fluid rate. 2. Hypokalemia-now normal at 3.6. Would benefit from some oral potassium if can tolerate 3. Nausea vomiting-okay to advance diet carefully and slowly 4. Hypertension-patient intermittently hypertensive but continue her usual meds today 5. Diabetes-blood sugar numbers have been okay. No change in plan. I am increasing her diet so will see how that goes Time-Based Coding :: [TOTAL MINUTES] spent with patient and on the chart (including review of chart, obtaining history, exam, reviewing outside data, placing orders, documenting exam and treatment plan, and counseling patient) on [DATE]. Quality VTE Deep Vein Thrombosis/Pulmonary Embolism Present on Admission: No IH PROFEE Charge codes Subsequent inpatient/observation care: [id number]
[2024-06-12] MEDS: ENOXAPARIN 40 MG/0.4 ML SYRINGE SUBCUT (08:43)
[2024-06-12] MEDS: atenoloL 50 MG TABLET PO (08:43)
[2024-06-12] MEDS: POTASSIUM CHLORIDE 20 MEQ TAB PO ×2 (08:43→17:56)
[2024-06-12] MEDS: lisinopriL 20 MG TABLET 40 MG PO (08:44)
--- NOTE | 2024-06-12 11:59 | CM.DPNOTE ---
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 per chart review, plan is to advance diet. Potential dc home tomorrow. Per chart, sodium currently 129, potassium 3.6. No barriers identified at this time to patient's safe discharge home w/family to assist; close outpatient f/u recommended. CM team will plan to follow clinical course closely in case any DC needs or concerns arise. ANGELA Ibarra
[2024-06-12] MEDS: INSULIN LISPRO 100 UNIT/ML 3ML VIAL SUBCUT (12:25)
[2024-06-12] MEDS: SODIUM CHLORIDE 0.9% FLUSH 10 ML IV (21:14)
[2024-06-12] MEDS: ATORVASTATIN 20 MG TABLET 40 MG PO (21:14)
[2024-06-12] MEDS: MELATONIN 3 MG TABLET 6 MG PO (21:14)
[2024-06-13] VITALS (8 sets, daily range): BP systolic 142–175; BP diastolic 65–79; PULSE 59–67; RESP 20; TEMP 36.1–36.6; O2SAT 97–100
[2024-06-13] MEDS: SODIUM CHLORIDE 0.9% 1,000 ML 80 ML IV (03:42)
[2024-06-13] MEDS: LEVOTHYROXINE 88 MCG TABLET PO (06:25)
[2024-06-13] MEDS: ENOXAPARIN 40 MG/0.4 ML SYRINGE SUBCUT (08:08)
[2024-06-13] MEDS: lisinopriL 20 MG TABLET 40 MG PO (08:08)
[2024-06-13] MEDS: POTASSIUM CHLORIDE 20 MEQ TAB PO (08:09)
[2024-06-13] MEDS: atenoloL 50 MG TABLET PO (08:09)
[2024-06-13] MEDS: INSULIN LISPRO 100 UNIT/ML 3ML VIAL SUBCUT ×2 (08:29→12:50)
[2024-06-13 10:31] LABS: BUN Creatinine Ratio 6.8 (6-22); Blood Urea Nitrogen 5 mg/dL (7-17); Calcium 8.8 mg/dL (8.4-10.2); Carbon Dioxide 22 mmol/L (22-32); Chloride 102 mmol/L (98-107); Estimated Glomerular Filt Rate > 60 mL/min (>60); Glucose 202 mg/dL (80-110); HEMOLYSIS 33 (0-50); Magnesium 1.5 mg/dL (1.6-2.3); Potassium 4.9 mmol/L (3.4-5.1); Sodium 130 mmol/L (137-145)
[2024-06-13] MEDS: MAGNESIUM CHLORIDE 64 MG TABLET 128 MG PO (13:06)
--- NOTE | 2024-06-13 13:30 | PT.IIE ---
Current Diagnoses Hypo-osmolality and hyponatremia (06/10/24) Surgical History (Last Reviewed 06/10/24 @ 16:53 by Jatin Camarena MD) Anesthesia History of cataract surgery (2007) History of colonoscopy (06/2010) History of thyroidectomy (05/1988) History of total mastectomy (11/28/07) Status post delivery (1964) Status post delivery (1969) Status post hysterectomy (09/09/13) Medical History (Last Reviewed 06/10/24 @ 16:53 by Jatin Camarena MD) Abnormal LFTs (04/21/11) Acquired hypothyroidism (12/24/12) Cataract (2007) Chicken pox Chronic renal failure, stage 3a Controlled type 2 diabetes mellitus Diverticular disease (06/2010) Eczema (~1950) Essential hypertension (04/21/11) 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) Irritable bowel syndrome (09/22/14) Lymphedema of upper extremity (07/24/14) Measles Mixed hyperlipidemia (06/25/15) Peripheral neuropathy Personal history of breast cancer (2007) Rubella Type 2 diabetes mellitus with hyperglycemia, without long-term current use of insulin (01/15/17) Vulvovaginitis (04/04/17) Physical Therapy Inpatient Evaluation/Re-Eval M1 PT/OT-IP Prior Functional Status Start: 06/13/24 16:51 Freq: NEEDED Status: Active Protocol: Document 06/13/24 13:30 AB (Rec: 06/13/24 17:10 AB [id number]) Medical Review Prior Functional Status Medical History Reviewed Yes Communication able to make needs known; with confusion Mobility and Gait pt stated that she was independent with all mobilities and ambulation without AD; stated that she is quite active and [place] Social History Household Members spouse Living Arrangements House Number of Floors (Floors) One Floor Number of Stairs To Enter/Railing? no step to enter Home Environment Standard Height Toilet,Walk in Shower,Tub/Shower Doors Home Equipment Hand Held Shower Additional Social History Comment pt stated that her fried is going to get her a shower chair M2 PT-IP Current Condition Start: 06/13/24 16:51 Freq: NEEDED Status: Active Protocol: Document 06/13/24 13:30 AB (Rec: 06/13/24 17:10 AB [id number]) Physical Therapy Current Condition Current Condition Evaluation Date 06/13/24 Treatment Diagnosis hyponatremia; difficulty in walking Onset Date 06/10/24 M3 PT-IP Subjective Start: 06/13/24 16:51 Freq: NEEDED Status: Active Protocol: Document 06/13/24 13:30 AB (Rec: 06/13/24 17:10 [id number]) Subjective Physical Therapy Visit Type Type Initial Evaluation Visit Start Time 13:30 Visit Stop Time 14:30 Number of FUR STYLIST Visits 0 Physical Therapy Visit Comments Patient Comments agreeable to do PT Therapy Pain Assessment Pain Present Pain Present Denied Pain M4 PT-IP Mobility and Gait Start: 06/13/24 16:51 Freq: NEEDED Status: Active Protocol: Document 06/13/24 13:30 AB (Rec: 06/13/24 17:10 [id number]) PT-Bed Mobility Assessment Supine to Sit Supine to Sit Standby Assistance Sit to Supine Sit to Supine Standby Assistance PT-Transfer Assessment Sit to and From Stand Sit to and from Stand Standby Assistance,1 Person Assistance,Use of Upper Extremities Equipment Transfer Assistive Device None,Gait Belt,Front Wheeled Walker Orthotic/Prosthetic Devices or Brace: No Transfers Transfer Destination Bed,Chair,Toilet Transfer Technique ambulated Transfer Ability Level of Assist Standby Assistance,Contact Guard Assistance,1 Person Assistance,Use of Upper Extremities Comments Mobility Comments pt sitting on EOB and spouse in room. obtained PLOF and home set up from pt and spouse . pt with slight confusion and requires increase time to respond to questions. BP checked: 173/78. pt requested to use the toilet . completed sit to stand SBA and ambulatedto the toilet without AD CGA. pt with decrease safety awareness and trying to sit on the toilet partway into the toilet. pt needing increase cues with all tasks. pt ambulated from the toilet to the sink without AD SBA. able to maintain standing SBA while washing her hands. pt ambulated to the bed without AD SBA and completed sit<>supine SBA. pt agreed to ambulate more. sit to stand from EOB SBA and ambulated in the hallway without AD CGA and cues. pt easily distracted and presents with increase unsteadiness when distracted. pt tends to run into things on the L and has difficulty walking a straight path. pt ambulated back to her room. educated spouse on how to assist pt and cue for steadiness. pt ambulated again with spouse cueing. pt tends to cross RLE midline and cued to correct and increase LISETTE. pt with (+) LOB requiring CGA to min A. pt ambulated back to her room. educated pt on safety and use of FWW. pt ambulated again using FWW SBA and cues to slow down ~ 200 ft . pt sat back on the chair. pt c/o feeling oozy. BP checked : 192/80. nurse aware. call light and table placed within reach. informed spouse to borrow a walker for pt and stated that he will go to the [employer] to borrow one. Gait Assessment Gait Gait Assistance Required: Contact Guard Assist,Minimum Assistance Distance (Feet) 200 Able to Maintain Weight Bearing Status Yes During Gait Assistive Devices Assistive Device None,Gait Belt,Front Wheeled Walker Orthotic/Prosthetic Devices or Brace: No Gait Deviations General Gait Pattern Ataxic,Decreased Stride Length ,Decreased Feet Clearance Factors Limiting Gait Function Factors Limiting Gait Function Decreased Activity Tolerance, Decreased Strength,Poor Balance,Poor Safety Awareness PT-Balance Assessment Sitting Balance and Reactions Static Sitting Balance Ability Good Dynamic Sitting Balance Ability Good Standing Balance and Reactions Static Standing Balance Ability Fair Dynamic Standing Balance Ability Fair Device Used without AD M5 PT-IP Objective Assessments Start: 06/13/24 16:51 Freq: NEEDED Status: Active Protocol: Document 06/13/24 13:30 AB (Rec: 06/13/24 17:10 [id number]) Orientation Orientation/Cognition Level of Alertness Confusional State Orientation Name,Place,Situation Safety Awareness Decreased Safety Awareness Memory Description Short Term Impaired Gross Range of Motion Lower Extremity ROM Assessment Within Functional Limits Strength Lower Extremity Strength Assessment Within Functional Limits Sensation Assessment Sensation Gross Sensation WNL Muscle Tone Muscle Tone WNL Yes M6 PT-IP Treatment Start: 06/13/24 16:51 Freq: NEEDED Status: Active Protocol: Document 06/13/24 13:30 AB (Rec: 06/13/24 17:10 AB [id number]) Physical Therapy Treatment Education Education Provided Safety M7 PT-IP Assessment and Plan Start: 06/13/24 16:51 Freq: NEEDED Status: Active Protocol: Document 06/13/24 13:30 AB (Rec: 06/13/24 17:10 AB [id number]) PT Summary Assessment and Plan Potential Rehabilitation Potential Fair Status of Condition at Evaluation Evolving Summary Impairments Pain,ROM,Strength,Balance, Coordination,Sensation,Tone, Cognition,Bed Mobility, Transfers,Gait,Activity Tolerance Assessment Summary pt is an 79 y/o F who presented with nausea and vomiting and was admitted for hyponatremia. pt requiring CGA with mobility with (+) LOB with ambulation without AD. recommending use of FWW at this time. pt plans to go home and spouse to assist her. pt will benefit from outpt PT. pt mayb go home when medically stable. Goals Bed Mobility Goal Independent Transfer Goal Independent Gait Goal Independent Gait Distance 200 Days to Meet Goals 10 Frequency of Treatment Frequency Of Treatment Once a Day Treatment Plan Physical Therapy Treatment Plan Bed Mobility Training,Transfer Training,Gait Training, Therapeutic Exercise,Balance Retraining,Discharge Planning, Hot or Cold Pack,Neuromuscular Re-ed,Coordination Retraining Precautions Other Precautions falls Recommendations To Nursing Amount of Assist Needed 1 Person Assist Discharge Recommendations PT Discharge Recommendations Home with Assistance, Outpatient PT Transportation Needs at Discharge Private Vehicle
--- NOTE | 2024-06-13 13:31 | PC.NURSE ---
Dr Stevens here to see pt; PT consult ordered to dayami prior to discharge; pt concerned that she is experiencing weakness; explained that with n/v/d for 10 days, plus several days in the hospital, some mild weakness is normal; she was able to amb to the sink and brush her teeth w/ SBA
--- NOTE | 2024-06-13 14:59 | PM.DS.1 ---
History of Present Illness History of Present Illness Chief complaint: throwing up, Can't eat Discharge Providers Provider Date of admission: 06/10/24 16:44 Discharge Date: 06/13/24 Primary care physician: Jatin Camarena MD Consults: 06/10/24 18:53 Consult to Dietitian, Adult Routine Comment: Reason For Exam: assessed high risk 06/13/24 13:12 Consult to Physical Therapy Evaluate & Treat Comment: Physician Instructions: Evaluate and Treat Discharge provider: Russ Stevens MD Summary Hospital Course Discharge Diagnosis: Hyponatremia NINO Diabetes Hypertension Hospital Course: 79-year-old female with 10 days or so of symptoms began with dizziness sounds more like vertigo. She was treated as though we vertigo she seem to improve slightly. Was seen in the clinic at the end of last week and some lab work was done given her persistent symptoms. She had a positive UA but negative urine culture was started on antibiotics anyway. She had somewhat suppressed sodium compared to previous but at 126 not felt to be an etiology for symptoms. She persisted with symptoms to the point where she needs to be seen and re-evaluated. She came to the ER for re-evaluation where lab work showed her sodium was 115 and chloride 72. Also with a slight bump in her creatinine at 1.25. Otherwise CBC was unremarkable and CT scan of the abdomen and pelvis was unremarkable. Hyponatremia was deemed to likely have resulted from combination of GI losses, thiazide diuretic, and intermittent furosemide use. Diuretics were discontinued on admission. She received IV fluids in symptoms were managed with antiemetics as needed. Her sodium improved over the course of 3 days and was 130 at time of discharge. Her dizziness and nausea and resolved with only residual weakness at time of discharge, which was likely due to her overall illness over the previous 2 weeks. She was able to ambulate independently and PT evaluated prior to discharge, recommending home with assistance. Status at Discharge Cognitive/behavioral status at discharge: oriented Functional status at discharge: uses cane/walker Overall status at discharge: patient is progressing back to baseline Time Spent with Patient Time spent: Greater than 30 minutes Exam Vital Signs (past 8 hours): - 06/13/24 07:00 06/13/24 07:00 06/13/24 08:08 Temperature Pulse Rate 67 Respiratory Rate Blood Pressure 169/72 H Pulse Oximetry 99 Oxygen Delivery Method Room Air Room Air Oxygen Flow Rate 06/13/24 12:00 Temperature 97.9 F Pulse Rate 62 Respiratory Rate 20 Blood Pressure 142/65 H Pulse Oximetry 100 Oxygen Delivery Method Oxygen Flow Rate 0 Oxygen Delivery Method Room Air Oxygen Flow Rate 0 General: Pleasant, elderly, NAD HEENT: NC/AT, EOMI, moist membranes CV: RRR, normal S1-S2, no m/g/r Resp: CTAB, comfortable WOB Abd: Soft, NTND, +BS Ext: No edema Skin: No rash or lesions noted Neuro: A&O x3, moves all extremities, no focal deficits Objective Labs 06/11/24 05:00 06/13/24 09:40 Labs: Laboratory Results - last 24 hr 06/13/24 09:40 Sodium 130 L Potassium 4.9 D Chloride 102 Carbon Dioxide 22 BUN 5 L Creatinine 0.74 Estimated GFR > 60 BUN/Creatinine Ratio 6.8 Glucose 202 H D Calcium 8.8 Magnesium 1.5 L PFSH Medical History Chronic renal failure, stage 3a Peripheral neuropathy Controlled type 2 diabetes mellitus Cataract (2007) Chicken pox Measles Rubella Eczema (~1950) Diverticular disease (06/2010) Abnormal LFTs (04/21/11) Vulvovaginitis (04/04/17) Type 2 diabetes mellitus with hyperglycemia, without long-term current use of insulin (01/15/17) Personal history of breast cancer (2007) Mixed hyperlipidemia (06/25/15) 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) Irritable bowel syndrome (09/22/14) Lymphedema of upper extremity (07/24/14) Acquired hypothyroidism (12/24/12) Essential hypertension (04/21/11) Surgical History History of cataract surgery (2007) History of colonoscopy (06/2010) Anesthesia History of thyroidectomy (05/1988) Status post hysterectomy (09/09/13) Status post delivery (1969) Status post delivery (1964) History of total mastectomy (11/28/07) Family History Brother Age: 95 Hypertension Child Age: 54 Hypothyroidism Father Coronary atherosclerosis Hypertension High cholesterol Aneurysm Mother Hypertension Liver disease Grandmother Diabetes mellitus Social History marital status: number of children: 2 household members: spouse lives independently: Yes caregiver/support person: No housing: house pets and animals: Yes education level: college (4 years) 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 Hyponatremia - Likely combination of issues including her nausea vomiting her thiazide diuretic as well as her intermittent furosemide as potential sources of her hyponatremia. Chlorthalidone discontinued on admission. Sodium improved to 130 and asymptomatic in terms of nausea/vomiting/dizziness at time of discharge. 2. Diabetes - Resume home metformin. 3. Hypertension - Continue lisinopril, need for additional anti-hypertensive to be assessed at follow-up with primary physician. 4. Acute kidney injury - Resolved. 5. Hypothyroidism - Continue home levothyroxine. Discharge Plan Discharge Plan Patient Disposition: Home Discharge orders & Medications Prescriptions: Continued atenolol 50 mg tablet 50 mg PO QDAY Qty: 90 3RF famciclovir 125 mg tablet 125 mg PO DAILY Qty: 90 3RF Patient Comments: as needed metformin 500 mg tablet 1,000 mg PO BID Qty: 360 3RF hyoscyamine sulfate 0.125 mg tablet, sublingual See Rx Instructions .ROUTE .COMPLEX Qty: 30 4RF Dose Instruction: TAKE 1 TABLET BY MOUTH CHEWED AND DISSOLVED UP TO EVERY 4 HOURS NEEDED FOR ABD PAIN Rx Instructions: TAKE 1 TABLET BY MOUTH CHEWED AND DISSOLVED UP TO EVERY 4 HOURS NEEDED FOR ABD PAIN gabapentin 100 mg capsule 100 mg PO BEDTIME Qty: 90 3RF lisinopril 40 mg tablet 40 mg PO DAILY Qty: 90 3RF atorvastatin [Lipitor] 40 mg tablet 40 mg PO HS Qty: 90 3RF levothyroxine 88 mcg tablet 88 mcg PO DAILY Qty: 90 3RF clobetasol 0.05 % cream 1 applic topical .weekly PRN (Reason: Vulvar irritation) Qty: 30 6RF ondansetron 4 mg tablet,disintegrating 4 mg PO Q6H PRN (Reason: nausea and vomiting) Qty: 20 0RF Discontinued chlorthalidone 25 mg tablet 25 mg PO DAILY Qty: 90 3RF furosemide 20 mg tablet 20 mg PO DAILY Qty: 90 3RF cefuroxime axetil 500 mg tablet 500 mg PO BID 7 Days Qty: 14 0RF Patient Comments: ending tomorrow / doxycycline hyclate 100 mg tablet 100 mg PO BID 7 Days Qty: 14 2RF Patient Comments: as needed prescription No Action (DME) post mastectomy bra See Rx Instructions .Route .MEDSUPPLY Qty: 2 0RF Rx Instructions: As directed Follow up/Referrals: Jatin Camarena MD [Primary Care Provider] - 1 Week Discharge Health Status Multidrug resistant organism: No MDRO Diet/Activity/Treatments Diet: Diet as Tolerated and Carb-consistent/Diabetic Visit Report/Discharge Packet Stand Alone Forms: Patient Portal/API Discharge Data Primary Care Provider: Jatin Camarena Discharges patient from system. Discharge Date/Time: 06/13/24 15:58 Quality VTE Deep Vein Thrombosis/Pulmonary Embolism Present on Admission: No [facility] PROFEE Charge Codes Discharge inpatient/observation: [id number]
[2024-06-13] MEDS: cloNIDine 0.1 MG TABLET PO (15:33)
--- NOTE | 2024-06-13 16:01 | PC.NURSE ---
pt discharged home with via private vehicle; escorted down via w/c; iv removed intact; written and verbal discharge instructions given to pt and ; questions answered and they verbalized understanding; all belongings sent w/ pt
--- NOTE | 2024-06-13 16:05 | CM.DPNOTE ---
DCP Note [employer] reviewed EMR Per chart review, sodium improved. able to advance diet. [employer] met with pt and friend in room. Pt reports feeling weaker than normal, but has spouse support at home. Spouse working on getting pt a walker. Pt reports she will dc home if Dr. Stevens thinks she's good for home and agreed that after two weeks of being sick it makes sense she would feel weaker than normal. Denies other DCP/CM needs P: home today with spouse support. CM team will continue to follow as needed ANGELA Ibarra
== END 2024-06-13 15:58 | disposition home or self-care (01) | DRG 641 ==
LOC: ED 14:34 → AC 16:44 → ICU 17:20
PROVIDERS: Family Medicine; Admitting Provider Internal Medicine; Emergency Provider Student in an Organized Health Care Education/Training Program; Family Provider Internal Medicine; PCP Internal Medicine; Visit Provider Internal Medicine
DX: E87.1 Hypo-osmolality and hyponatremia (principal); N17.9 Acute kidney failure, unspecified; E11.9 Type 2 diabetes mellitus without complications; I10 Essential (primary) hypertension; E03.9 Hypothyroidism, unspecified; R11.2 Nausea with vomiting, unspecified; E87.8 Other disorders of electrolyte and fluid balance, not elsewhere classified; T50.2X5A Adverse effect of carbonic-anhydrase inhibitors, benzothiadiazides and other diuretics, initial encounter; T50.1X5A Adverse effect of loop [high-ceiling] diuretics, initial encounter; E78.2 Mixed hyperlipidemia; Z79.84 Long term (current) use of oral hypoglycemic drugs; Z79.4 Long term (current) use of insulin; Z85.3 Personal history of malignant neoplasm of breast; Z87.891 Personal history of nicotine dependence
CPT/HCPCS: 36415; 74177; 80048; 80053; 80076; 81003; 82962; 83690; 83735; 85025; 87797; 96361; 96374; 97116; 97162; 97530; 99284; 99285; J1650; J1815; J2405

== ENCOUNTER → 2024-06-23 13:57 | Outpatient (CLI) | payer MEDICARE, OTHER, SELFPAY ==
[2024-06-10 18:43] VITALS: BMI 19.9
[2024-06-23 15:33] LABS: BUN Creatinine Ratio 22.1 (6-22); Blood Urea Nitrogen 21 mg/dL (7-17); Calcium 9.9 mg/dL (8.4-10.2); Carbon Dioxide 28 mmol/L (22-32); Chloride 98 mmol/L (98-107); Estimated Glomerular Filt Rate > 60 mL/min (>60); Glucose 156 mg/dL (80-110); HEMOLYSIS < 15 (0-50); Potassium 4.3 mmol/L (3.4-5.1); Sodium 135 mmol/L (137-145)
== END ==
PROVIDERS: Family Provider Internal Medicine; PCP Internal Medicine; Referring Provider Internal Medicine; Visit Provider Internal Medicine
DX: E87.1 Hypo-osmolality and hyponatremia (principal); I10 Essential (primary) hypertension
CPT/HCPCS: 36415; 80048

== ENCOUNTER → 2024-07-30 07:06 | Outpatient (CLI) | payer MEDICARE, OTHER, SELFPAY ==
[2024-06-10 18:43] VITALS: BMI 19.9
[2024-07-30 08:54] LABS: Add Manual Diff / Slide Review NO; Basophils Absolute Auto 0 /uL (0-100); Basophils Percent Auto 0.7 % (0-2); Eosinophils Absolute Auto 400 /uL (0-450); Eosinophils Percent Auto 8.2 % (2-4); Hematocrit 31.4 % (36-46); Hemoglobin 10.6 g/dL (12.0-16.0); Lymphocytes Absolute Auto 800 /uL (1100-4500); Lymphocytes Percent Auto 17.8 % (25-40); Mean Corpuscular HGB Conc 33.7 % (30-36); Mean Corpuscular Hemoglobin 29.2 PG (26-34); Mean Corpuscular Volume 86.6 fL (80-100); Monocytes Absolute Auto 500 /uL (0-900); Monocytes Percent Auto 11.1 % (3-14); Neutrophils Absolute Auto 2900 /uL (1500-7000); Neutrophils Percent Auto 62.2 % (50-75); Platelet Count 304 X10^3/uL (150-400); Red Blood Cell Count 3.63 X10^6/uL (4.0-5.2); Red Cell Distribution Width 13.7 % (11.6-14.8); White Blood Cell Count 4.6 X10^3/uL (4.5-11.0)
[2024-07-30 09:21] LABS: Alanine Aminotransferase 21 IU/L (<35); Albumin 4.2 g/dL (3.5-5.0); Albumin Globulin Ratio 1.4 (1.0-2.8); Alkaline Phosphatase 55 U/L (38-126); Aspartate Aminotransferase 32 IU/L (14-36); BUN Creatinine Ratio 19.8 (6-22); Bilirubin Total 0.5 mg/dL (0.2-1.3); Blood Urea Nitrogen 21 mg/dL (7-17); Calcium 9.5 mg/dL (8.4-10.2); Carbon Dioxide 29 mmol/L (22-32); Chloride 102 mmol/L (98-107); Estimated Glomerular Filt Rate 53 mL/min (>60); Glucose 99 mg/dL (80-110); Magnesium 1.7 mg/dL (1.6-2.3); Potassium 4.1 mmol/L (3.4-5.1); Sodium 138 mmol/L (137-145); Total Protein 7.2 g/dL (6.3-8.2)
[2024-07-30 09:22] LABS: HEMOLYSIS 52 (0-50)
[2024-07-30 09:40] LABS: Free T4, Direct Thyroxine 1.47 ng/dL (0.78-2.19)
[2024-07-30 09:54] LABS: Thyroid Stimulating Hormone 4.14 uIU/mL (0.47-4.68)
== END ==
PROVIDERS: Family Provider Internal Medicine; PCP Internal Medicine; Referring Provider Internal Medicine; Visit Provider Internal Medicine
DX: E87.1 Hypo-osmolality and hyponatremia (principal); E78.2 Mixed hyperlipidemia; I10 Essential (primary) hypertension
CPT/HCPCS: 36415; 80053; 83735; 84439; 84443; 85025

== ENCOUNTER 2024-07-31 21:59 | Inpatient (IN) | payer MEDICARE, OTHER, SELFPAY ==
[2024-06-10 18:43] VITALS: BMI 19.9
[2024-07-31 22:06] VITALS: BP 186/79; PULSE 95; RESP 15; TEMP 37.6; O2SAT 95; BMI 20.1
--- NOTE | 2024-07-31 22:12 | ED.GENADULT ---
HPI - General Adult General Chief complaint: Weakness Stated complaint: not feeling well Time Seen by Provider: 07/31/24 22:02 History of Present Illness HPI narrative: 79-year-old female with history of hypertension, remote history of breast cancer status post lymph node resection with chronic right upper extremity lymphedema presents by private vehicle from home for 1 day of malaise. Patient states that she went to go play bridge with her bridge group, and when she got back she just did not feel right. She states she feels out of it. also reporting chills. No medications taken prior to arrival. Patient admitted to the hospital 1 month ago for acute hyponatremia, thought to be secondary to chlorthalidone and furosemide. Patient states that since that admission to the hospital she has not been 100% and states that she feels like she aged many years over that hospitalization. at bedside states that patient's right forearm appears hotter to touch and redder than her usual lymphedema changes. Related Data Previous Rx's Medication Instructions Recorded post mastectomy bra #2 ea 04/11/21 famciclovir 125 mg tablet 125 mg PO DAILY #90 tabs 08/27/23 metformin 500 mg tablet 1,000 mg (2 x 500 mg) PO BID #360 10/30/23 tabs hyoscyamine sulfate 0.125 mg See Rx Instructions .Route 12/03/23 sublingual tablet .COMPLEX #30 ea gabapentin 100 mg capsule 100 mg PO BEDTIME #90 caps 12/10/23 clobetasol 0.05 % topical cream 1 applic topical .weekly PRN 01/04/24 Vulvar irritation #30 grams lisinopril 40 mg tablet 40 mg PO DAILY #90 tabs 04/07/24 atorvastatin 40 mg tablet (Lipitor) 40 mg PO HS #90 tabs 05/26/24 levothyroxine 88 mcg tablet 88 mcg PO DAILY #90 tabs 06/04/24 ondansetron 4 mg disintegrating 4 mg PO Q6H PRN nausea and 06/05/24 tablet vomiting #20 tabs atenolol 50 mg tablet 50 mg PO BID #180 tabs 07/07/24 furosemide 20 mg tablet 20 mg PO DAILY #90 tabs 07/17/24 Allergies Allergy/AdvReac Type Severity Reaction Status Date / Time levofloxacin [LEVOFLOXACIN] Allergy Intermediate ITCHY HIVES Verified 07/17/24 16:33 vancomycin [VANCOMYCIN] Allergy Intermediate RASH/HIVES Verified 07/17/24 16:33 06/25/17 Sulfa (Sulfonamide Allergy Mild RASH Verified 07/17/24 16:33 Antibiotics) [SULFA (SULFONAMIDE ANTIBIOTICS)] chlorthalidone AdvReac Severe hyponatremi Verified 07/17/24 16:33 a amlodipine AdvReac Intermediate leg Verified 07/17/24 16:33 swelling adhesive [ADHESIVE] AdvReac Mild MAYORGA AND Verified 07/17/24 16:33 IRRITATION FROM TAPE oxycodone [OXYCODONE] AdvReac Mild MAKES HER Verified 07/17/24 16:33 SICK Patient History Medical History Chronic renal failure, stage 3a Peripheral neuropathy Controlled type 2 diabetes mellitus Cataract (2007) Chicken pox Measles Rubella Eczema (~1950) Diverticular disease (06/2010) Abnormal LFTs (04/21/11) Vulvovaginitis (04/04/17) Type 2 diabetes mellitus with hyperglycemia, without long-term current use of insulin (01/15/17) Personal history of breast cancer (2007) Mixed hyperlipidemia (06/25/15) 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) Irritable bowel syndrome (09/22/14) Lymphedema of upper extremity (07/24/14) Acquired hypothyroidism (12/24/12) Essential hypertension (04/21/11) Surgical History History of cataract surgery (2007) History of colonoscopy (06/2010) Anesthesia History of thyroidectomy (05/1988) Status post hysterectomy (09/09/13) Status post delivery (1969) Status post delivery (1964) History of total mastectomy (11/28/07) Family History Brother Age: 95 Hypertension Child Age: 54 Hypothyroidism Father Coronary atherosclerosis Hypertension High cholesterol Aneurysm Mother Hypertension Liver disease Grandmother Diabetes mellitus Social History marital status: number of children: 2 household members: spouse lives independently: Yes caregiver/support person: No housing: house pets and animals: Yes education level: college (4 years) 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, 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 [employer]: [employer] travel history: over 6 months ago ([place], no longer travel) leisure activities: exercise (Walking), 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, TV) Smoking Status: Former smoker Tobacco: How many years used: 20 Smokeless tobacco user: other (Cigarettes) quit status: quit date established (Unsure of date.) second hand exposure: Yes alcohol intake: current substance use type: does not use Smoking Status: Former smoker alcohol intake frequency: holidays/special occasions only Substance Use Type: does not use Exam Initial Vital Signs Initial Vital Signs: Vital Signs Temperature 99.7 F H 07/31/24 22:06 Pulse Rate 95 H 07/31/24 22:06 Respiratory Rate 15 07/31/24 22:06 Blood Pressure 186/79 H 07/31/24 22:06 Pulse Oximetry 95 07/31/24 22:06 Oxygen Delivery Method Room Air 07/31/24 22:06 Const: Awake, alert, ill appearing, nontoxic Cardiac: regular rate, regular rhythm RESP: unlabored, clear bilaterally, no wheezing GI: Soft, nontender, nondistended MSK: RUQ with lymphedema (reported chronic), palpable pulses Skin: Warm, Dry, erythema and warmth of RUQ from mid-bicep to wrist Neuro: AO x3, CN II-XII grossly intact, moves all extremities Course Orders Ordered: ED Orders 07/31/24 22:11 EKG-12 Lead Stat 07/31/24 22:20 CBC Auto Diff [Complete Blood Count AUTO DIFF] Stat CMP [Comprehensive Metabolic Panel] Stat Lactate (Lactic Acid) Stat Procalcitonin Stat 07/31/24 22:28 Respiratory Panel (Film Array) Stat 07/31/24 22:45 Blood Culture Stat 07/31/24 23:14 UA Complete [Urinalysis and Microscopic] Stat Urine Culture Stat 08/01/24 00:34 Chest [XR chest 1V] Stat 08/01/24 01:59 CT angio chest PE protocol Stat 08/01/24 02:32 BNP [NT-proBNP (BNP-Adult 18+)] Stat Troponin & CK Cardiac Panel Stat Discontinued Medications Albuterol/Ipratropium (Albuterol/Ipratropium 3 Ml Ampul) 3 ml INH NOW ONE Stop: 08/01/24 02:00 Last Admin: 08/01/24 02:08 Dose: 3 ml Documented By: RADHA Doxycycline Hyclate (Doxycycline Hyclate 100 Mg Tablet) 100 mg PO NOW ONE Stop: 08/01/24 01:52 Last Admin: 08/01/24 01:59 Dose: 100 mg Documented By: Sodium Chloride (Normal Saline 0.9%) 1,000 mls @ 1,000 mls/hr IV BOLUS ONE Stop: 07/31/24 23:05 Last Infusion: 07/31/24 23:43 Dose: Infused Documented By: Admin: 07/31/24 22:32 Dose: 1,000 mls/hr Documented By: STEPHAN Ceftriaxone Sodium 1,000 mg/ (Sodium Chloride) 100 mls @ 200 mls/hr IV NOW ONE Stop: 07/31/24 22:52 Last Infusion: 07/31/24 23:43 Dose: Infused Documented By: Admin: 07/31/24 23:10 Dose: 200 mls/hr Documented By: STEPHAN Vital Signs Vital signs: Vital Signs - 8 hr 07/31/24 22:06 07/31/24 22:32 07/31/24 23:07 Temperature 99.7 F H Pulse Rate 95 H 93 H 97 H Respiratory Rate 15 22 Blood Pressure 186/79 H Pulse Oximetry 95 93 95 Oxygen Delivery Method Room Air Oxygen Flow Rate Fraction of Inspired Oxygen 07/31/24 23:30 07/31/24 23:40 07/31/24 23:40 Temperature Pulse Rate 93 H 93 H Respiratory Rate 24 25 H Blood Pressure 147/65 H Pulse Oximetry 95 92 Oxygen Delivery Method Oxygen Flow Rate Fraction of Inspired Oxygen 08/01/24 00:00 08/01/24 00:00 08/01/24 00:30 Temperature Pulse Rate 93 H 94 H Respiratory Rate 23 19 Blood Pressure 145/65 H Pulse Oximetry 95 92 Oxygen Delivery Method Oxygen Flow Rate Fraction of Inspired Oxygen 08/01/24 00:30 08/01/24 01:00 08/01/24 01:30 Temperature 99.3 F Pulse Rate 93 H 93 H Respiratory Rate 20 23 Blood Pressure 150/67 H Pulse Oximetry 91 95 Oxygen Delivery Method Oxygen Flow Rate Fraction of Inspired Oxygen 08/01/24 02:11 Temperature Pulse Rate 97 H Respiratory Rate 16 Blood Pressure Pulse Oximetry 97 Oxygen Delivery Method Nasal Cannula Oxygen Flow Rate 2 Fraction of Inspired Oxygen 28 Medical Decision Making Lab Data 07/31/24 22:20 07/31/24 22:20 Labs: Lab Results 07/31/24 07/31/24 07/31/24 Range/Units 22:20 22:28 23:14 WBC 14.5 H D (4.5-11.0) X10^3/uL RBC 3.61 L (4.0-5.2) X10^6/uL Hgb 10.3 L (12.0-16.0) g/dL Hct 30.9 L (36-46) % MCV 85.7 (80-100) fL MCH 28.6 (26-34) PG MCHC 33.3 (30-36) % RDW 14.0 (11.6-14.8) % Plt Count 306 (150-400) X10^3/uL Neut % (Auto) 93.8 H D (50-75) % Lymph % (Auto) 2.7 L (25-40) % [place] % (Auto) 2.8 L (3-14) % Eos % (Auto) 0.6 L (2-4) % Baso % (Auto) 0.1 (0-2) % Neut # (Auto) 24438 H (9231-0862) /uL Lymph # (Auto) 400 L (8172-4001) /uL [place] # (Auto) 400 (0-900) /uL Eos # (Auto) 100 (0-450) /uL Baso # (Auto) 0 (0-100) /uL Sodium 131 L (137-145) mmol/L Potassium 3.5 (3.4-5.1) mmol/L Chloride 99 (98-107) mmol/L Carbon Dioxide 27 (22-32) mmol/L BUN 25 H (7-17) mg/dL Creatinine 1.03 (0.52-1.04) mg/dL Estimated GFR 55 L (>60) mL/min BUN/Creatinine Ratio 24.3 H (6-22) Glucose 140 H (80-110) mg/dL Lactate 1.8 (0.7-2.1) mmol/L Calcium 8.9 (8.4-10.2) mg/dL Total Bilirubin 0.4 (0.2-1.3) mg/dL AST 32 (14-36) IU/L ALT 24 (<35) IU/L Alkaline Phosphatase 66 (38-126) U/L Total Creatine Kinase 38 (30-135) U/L Troponin I < 0.012 (0.01-0.034) ng/mL NT-Pro-B Natriuret Pep 1650 H (<450) pg/mL Total Protein 7.6 (6.3-8.2) g/dL Albumin 4.1 (3.5-5.0) g/dL Globulin 3.5 (1.7-4.1) g/dL Albumin/Globulin Ratio 1.2 (1.0-2.8) Procalcitonin 0.088 (<0.5) ng/mL Urine Color Yellow Urine Appearance Clear Urine pH 7.0 (4.5-8.0) Ur Specific [place] 1.010 (1.000-1.035) Urine Protein Negative (Negative) Urine Glucose (UA) Negative (Negative) g/dL Urine Ketones Negative (NEGATIVE) Urine Occult Blood Negative (Negative) Urine Nitrate Negative (Negative) Urine Bilirubin Negative (NEGATIVE) Urine Urobilinogen 0.2 (0.2) E.U./dL Ur Leukocyte Esterase 1+ H (NEGATIVE) Urine RBC 0-1/hpf (0-5/HPF) Urine WBC 5-10/hpf H (0-5/HPF) Ur Squamous Epith Cells 0-1 /hpf (0-5/HPF) Urine Bacteria Occasional (0-1) (None) Ur Culture Indicated? Specimen cultured Vol Urine Centrifuged 10ml (spun) Chlamy pneumoniae PCR Not detected (Not Detect) Adenovirus (PCR) Not detected (Not Detect) B. pertussis DNA (PCR) Not detected (Not Detect) B.parapertussis DNA PCR Not detected (Not Detecte) Coronavirus OC43 (PCR) Not detected (Not Detect) Coronavirus HKU1 (PCR) Not detected (Not Detect) Coronavirus 229E (PCR) Not detected (Not Detect) SARS-CoV-2 (PCR) Not detected (Not Detecte) Coronavirus NL63 (PCR) Not detected (Not Detect) Human Metapneumovir PCR Not detected (Not Detect) Influenza Type A (PCR) Not detected (Not Detect) Influenza Type B (PCR) Not detected (Not Detect) M. pneumoniae (PCR) Not detected (Not Detect) Parainfluenza 1 (PCR) Not detected (Not Detect) Parainfluenza 2 (PCR) Not detected (Not Detect) Parainfluenza 3 (PCR) Not detected (Not Detect) Parainfluenza 4 (PCR) Not detected (Not Detect) RSV (PCR) Not detected (Not Detect) Entero/Rhino (PCR) Not detected (Not Detect) Imaging Data Chest x-ray: Radiologist's Impression: PROCEDURE: XR CHEST 1V INDICATIONS: LOW O2 SATS, MALAISE TECHNIQUE: One view of the chest was acquired. COMPARISON: [facility], CHEST 1 VIEW, 06/25/2017, 19:12. FINDINGS: Surgical changes and devices: Several surgical clips in the right axilla and surgical changes of right mastectomy. Median sternotomy wires present. Lungs and pleura: Hyperinflated, hyperlucent lungs with coarsening of the interstitial markings. No focal consolidation, effusion, or pneumothorax. Mediastinum: Mediastinal contours appear normal. Heart size is normal. Bones and chest wall: No suspicious bony lesions. Overlying soft tissues appear unremarkable. IMPRESSION: Changes of chronic emphysema. No acute cardiopulmonary disease. Surgical changes of right mastectomy. Dictated by: Kari Kwan M.D. on 08/01/2024 at 1:33 Approved by: Kari Kwan M.D. on 08/01/2024 at 1:34 ECG Data Interpretation: normal sinus rhythm at 94 beats per minute. Normal MN. No ST T wave changes MDM Narrative Additional Information: nontoxic appearing patient presenting for general malaise, found to have what appears to be cellulitis of her right upper extremity. Laboratory work ordered for additional assessment. Patient reports allergy to vancomycin, IV Rocephin given. PO doxy also given as patient reports previous good response to that antibiotic Laboratory work shows WBC count 14.5, hemoglobin 10.3, platelet count 306, sodium 131, potassium 3.5, creatinine 1.03, normal liver enzymes, Troponin undetectable, BNP 1650. Lactic acid 1.8, procalcitonin 0.088. While in the emergency department patient's oxygen saturations dropped to the upper 80s. Initially this was only witnessed while patient was sleeping, however even when awake and upright saturations were between 90-92% with good waveform. Patient denying shortness of breath, lungs are clear to auscultation bilaterally. Patient denies history of Lung disease or heart failure but does have furosemide listed on her medical record. Ambulatory pulse ox as low as 88%. chest x-ray does not show any acute findings to explain patient's low oxygen saturations, and with her recent history of hospitalization a CT angio will be ordered.3 CT scan shows mild pulmonary edema, no PE. There is an ill-defined subpleural density in the right apex that is considered to be scarring. Patient's saturations improved with 2 L nasal cannula. She was given 40 IV Lasix. With the ongoing cellulitis and low oxygen saturations patient will be admitted for further treatment. Discharge Plan Departure Patient Disposition: Home Clinical Impression: Cellulitis, Low O2 saturation, Pulmonary edema
[2024-07-31 22:32] VITALS: PULSE 93; O2SAT 93
[2024-07-31] MEDS: SODIUM CHLORIDE 0.9% 1,000 ML 1000 ML IV (22:32)
--- NOTE | 2024-07-31 22:33 | EKG_ITS ---
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
[2024-07-31 22:35] LABS: Add Manual Diff / Slide Review NO; Basophils Absolute Auto 0 /uL (0-100); Basophils Percent Auto 0.1 % (0-2); Eosinophils Absolute Auto 100 /uL (0-450); Eosinophils Percent Auto 0.6 % (2-4); Hematocrit 30.9 % (36-46); Hemoglobin 10.3 g/dL (12.0-16.0); Lymphocytes Absolute Auto 400 /uL (1100-4500); Lymphocytes Percent Auto 2.7 % (25-40); Mean Corpuscular HGB Conc 33.3 % (30-36); Mean Corpuscular Hemoglobin 28.6 PG (26-34); Mean Corpuscular Volume 85.7 fL (80-100); Monocytes Absolute Auto 400 /uL (0-900); Monocytes Percent Auto 2.8 % (3-14); Neutrophils Absolute Auto 13600 /uL (1500-7000); Neutrophils Percent Auto 93.8 % (50-75); Platelet Count 306 X10^3/uL (150-400); Red Blood Cell Count 3.61 X10^6/uL (4.0-5.2); White Blood Cell Count 14.5 X10^3/uL (4.5-11.0)
[2024-07-31 22:44] LABS: Lactate (Lactic Acid) 1.8 mmol/L (0.7-2.1)
[2024-07-31 22:45] LABS: Alanine Aminotransferase 24 IU/L (<35); Albumin 4.1 g/dL (3.5-5.0); Albumin Globulin Ratio 1.2 (1.0-2.8); Alkaline Phosphatase 66 U/L (38-126); Aspartate Aminotransferase 32 IU/L (14-36); BUN Creatinine Ratio 24.3 (6-22); Bilirubin Total 0.4 mg/dL (0.2-1.3); Blood Urea Nitrogen 25 mg/dL (7-17); Calcium 8.9 mg/dL (8.4-10.2); Carbon Dioxide 27 mmol/L (22-32); Chloride 99 mmol/L (98-107); Estimated Glomerular Filt Rate 55 mL/min (>60); Globulin 3.5 g/dL (1.7-4.1); Glucose 140 mg/dL (80-110); HEMOLYSIS < 15 (0-50); Potassium 3.5 mmol/L (3.4-5.1); Sodium 131 mmol/L (137-145); Total Protein 7.6 g/dL (6.3-8.2)
[2024-07-31 23:02] LABS: Procalcitonin 0.088 ng/mL (<0.5)
[2024-07-31 23:07] VITALS: PULSE 97; RESP 22; O2SAT 95
[2024-07-31] MEDS: cefTRIAXone 1,000 MG in SODIUM CHLORIDE 0.9% 100 ML 200 MG IV (23:10)
[2024-07-31 23:20] LABS: Appearance Urine UA CLEAR; Bilirubin Urine UA NEGATIVE (NEGATIVE); Color Urine UA YELLOW; Glucose Urine UA NEGATIVE (Negative); Ketones Urine UA NEGATIVE (NEGATIVE); Leukocyte Esterase Urine UA 1+ (NEGATIVE); Nitrite Urine UA NEGATIVE (Negative); Occult Blood Urine UA NEGATIVE (Negative); Protein Urine UA NEGATIVE (Negative); Urobilinogen Urine UA 0.2 E.U./dL (0.2)
[2024-07-31 23:22] LABS: Adenovirus Not Detected (Not Detect); B. parapertussis Not Detected (Not Detecte); Bordetella pertussis Not Detected (Not Detect); Chlamydophila pneumoniae Not Detected (Not Detect); Coronavirus 229E Not Detected (Not Detect); Coronavirus HKU1 Not Detected (Not Detect); Coronavirus NL 63 Not Detected (Not Detect); Coronavirus OC43 Not Detected (Not Detect); Human Metapneumovirus Not Detected (Not Detect); Human Rhinovirus/Enterovirus Not Detected (Not Detect); Influenza A Not Detected (Not Detect); Influenza B Not Detected (Not Detect); Mycoplasma pneumoniae Not Detected (Not Detect); Parainfluenza Virus 1 Not Detected (Not Detect); Parainfluenza Virus 2 Not Detected (Not Detect); Parainfluenza Virus 3 Not Detected (Not Detect); Parainfluenza Virus 4 Not Detected (Not Detect); Respiratory Syncytial Virus Not Detected (Not Detect); SARS- CoV-2 Not Detected (Not Detecte)
[2024-07-31 23:25] LABS: Bacteria Urine Occasional (0-1); Culture Indicated Urine Specimen Cultured; RBC Urine 0-1/HPF (0-5/HPF); Squamous Epithelial Cell Urine 0-1 /HPF (0-5/HPF); Urine Volume 10mL (spun); WBC Urine 5-10/HPF (0-5/HPF)
[2024-07-31 23:30] VITALS: PULSE 93; RESP 24; O2SAT 95
[2024-07-31 23:40] VITALS: BP 147/65; PULSE 93; RESP 25; O2SAT 92
[2024-08-01] VITALS (16 sets, daily range): BP systolic 125–158; BP diastolic 53–69; PULSE 81–99; RESP 12–26; TEMP 37.1–37.7; O2SAT 90–98; BMI 20.1
--- NOTE | 2024-08-01 00:34 | DI.RAD.S_ITS ---
PROCEDURE: XR CHEST 1V INDICATIONS: LOW O2 SATS, MALAISE TECHNIQUE: One view of the chest was acquired. COMPARISON: [facility], , CHEST 1 VIEW, 06/25/2017, 19:12. FINDINGS: Surgical changes and devices: Several surgical clips in the right axilla and surgical changes of right mastectomy. Median sternotomy wires present. Lungs and pleura: Hyperinflated, hyperlucent lungs with coarsening of the interstitial markings. No focal consolidation, effusion, or pneumothorax. Mediastinum: Mediastinal contours appear normal. Heart size is normal. Bones and chest wall: No suspicious bony lesions. Overlying soft tissues appear unremarkable. IMPRESSION: Changes of chronic emphysema. No acute cardiopulmonary disease. Surgical changes of right mastectomy. Dictated by: Kari Kwan M.D. on 08/01/2024 at 1:33 Approved by: Kari Kwan M.D. on 08/01/2024 at 1:34
[2024-08-01] MEDS: DOXYCYCLINE HYCLATE 100 MG TABLET PO ×3 (01:59→21:22)
--- NOTE | 2024-08-01 01:59 | DI.CT.S_ITS ---
PROCEDURE: CT ANGIO CHEST PE PROTOCOL INDICATIONS: recent hospitalization, persistent low O2 sats TECHNIQUE: After the administration of intravenous contrast, 2 mm thick sections acquired from the pulmonary apices to the posterior costophrenic angles. 3-dimensional maximum intensity projection (MIP) coronal and sagittal reformats were then acquired through the thorax. For radiation dose reduction, the following was used: automated exposure control, adjustment of mA and/or kV according to patient size. COMPARISON: [facility], , CHEST 1 VIEW, 06/25/2017, 19:12. FINDINGS: Image quality: Diagnostic. Pulmonary arteries: Pulmonary arteries are normal in size, and demonstrate no intraluminal filling defects to suggest central pulmonary embolism. Lower Neck: No enlarged lymph nodes. Thyroid: Surgical clips in the thyroid fossa without visible thyroid tissue compatible with prior thyroidectomy. Recommend verification with past surgical history. Axillae: No enlarged lymph nodes. Chest Wall: Status post right mastectomy. Prior right axillary sree dissection. Multiple median sternotomy wires are present. No substernal fluid collections. Bones: Visualized osseous structures appear intact without acute fracture or focal destructive lesion. No acute compression fractures of the imaged spine. Lungs and Pleura: No pneumothorax. No substantial pleural effusion. Smooth septal thickening predominantly in the lower lobes. Moderate bibasilar atelectasis. Ill-defined subpleural irregularity on the right likely representing subpleural/apical scarring. No definite pulmonary mass or nodule seen. Visualized airways are clear. Heart: Heart size is normal. No pericardial effusion. Multivessel atherosclerotic calcifications of the coronary arteries. No evidence for acute right-sided heart strain. Thoracic Vessels: No aortic aneurysm. Atherosclerotic calcifications of the aortic arch are present. Mediastinum and [place]: No enlarged lymph nodes. Esophagus: There is diffuse circumferential wall thickening of the imaged esophagus. No hiatal hernia. Upper Abdomen: Visualized upper abdomen solid organs and bowel loops appear normal. IMPRESSION: No acute pulmonary emboli. No evidence for acute right-sided heart strain. Findings compatible with mild pulmonary edema. Moderate atherosclerotic vascular calcifications. Ill-defined subpleural density of the right pulmonary apex likely related to scarring. Recommend follow-up chest CT in 3 months to document stability. 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 Dictated by: Jose Ruiz M.D. on 08/01/2024 at 9:31 Approved by: Jose Ruiz M.D. on 08/01/2024 at 9:39
[2024-08-01] MEDS: ALBUTEROL/IPRATROPIUM 3 ML AMPUL INH (02:08)
[2024-08-01 02:48] LABS: Creatine Kinase 38 U/L (30-135)
[2024-08-01 03:01] LABS: NT-proBNP (BNP-Adult 18+) 1650 pg/mL (<450); Troponin I < 0.012 ng/mL (0.01-0.034)
[2024-08-01] MEDS: FUROSEMIDE 40 MG/4 ML VIAL IV ×3 (03:20→21:22)
[2024-08-01 06:32] LABS: Add Manual Diff / Slide Review NO; Basophils Absolute Auto 100 /uL (0-100); Basophils Percent Auto 0.6 % (0-2); Eosinophils Absolute Auto 0 /uL (0-450); Hematocrit 29.8 % (36-46); Hemoglobin 9.9 g/dL (12.0-16.0); Lymphocytes Absolute Auto 500 /uL (1100-4500); Lymphocytes Percent Auto 3.4 % (25-40); Mean Corpuscular HGB Conc 33.4 % (30-36); Mean Corpuscular Hemoglobin 28.7 PG (26-34); Mean Corpuscular Volume 85.7 fL (80-100); Monocytes Absolute Auto 500 /uL (0-900); Monocytes Percent Auto 3.5 % (3-14); Neutrophils Absolute Auto 13200 /uL (1500-7000); Neutrophils Percent Auto 92.5 % (50-75); Platelet Count 264 X10^3/uL (150-400); Red Blood Cell Count 3.47 X10^6/uL (4.0-5.2); Red Cell Distribution Width 13.8 % (11.6-14.8); White Blood Cell Count 14.3 X10^3/uL (4.5-11.0)
[2024-08-01 06:57] LABS: Alanine Aminotransferase 23 IU/L (<35); Albumin 3.7 g/dL (3.5-5.0); Albumin Globulin Ratio 1.3 (1.0-2.8); Alkaline Phosphatase 57 U/L (38-126); Aspartate Aminotransferase 30 IU/L (14-36); Bilirubin Total 0.5 mg/dL (0.2-1.3); Blood Urea Nitrogen 21 mg/dL (7-17); Calcium 8.4 mg/dL (8.4-10.2); Carbon Dioxide 26 mmol/L (22-32); Chloride 99 mmol/L (98-107); Estimated Glomerular Filt Rate 53 mL/min (>60); Globulin 2.8 g/dL (1.7-4.1); Glucose 127 mg/dL (80-110); HEMOLYSIS < 15 (0-50); Potassium 3.4 mmol/L (3.4-5.1); Sodium 134 mmol/L (137-145); Total Protein 6.5 g/dL (6.3-8.2)
--- NOTE | 2024-08-01 07:05 | DI.ECHO.S_ITS ---
[facility] : : [address] : : [place] : : [id number] : : Phone: [phone] Echocardiogram Report + + :Name: ROSEANNE TIDWELL Study Date: 08/01/2024 Height: 62 in : :[facility] ReadingLocation: Weight: 110 lb : : Gender: Female BSA: 1.5 m2 : :: 1945 Age: 79 yrs BP: 158/69 mmHg: :Reason For Study: CONGESTIVE HEART FAILURE : :Ordering Physician: ZABRINA, : :MICAELA Gifford Performed By: Dee Hargrove : :Referring: MICAELA GERBER : + + Interpretation Summary The ejection fraction is estimated to be 55-60%. The right ventricle is normal in size and function. There is mild mitral regurgitation. There is mild aortic regurgitation. The right ventricular systolic pressure is estimated to be at least 24 mmHg based on an estimated right atrial pressure of 3 mm Hg. Procedure: A two-dimensional transthoracic echocardiogram with color flow and Doppler was performed. The study quality was technically adequate. There is no prior echocardiogram noted for this patient. The heart rate ranged between 78-82 bpm during the study. Left Ventricle: Proximal septal thickening is noted. The left ventricle is normal in size. The ejection fraction is estimated to be 55-60%. There are no obvious focal wall motion abnormalities noted but poor endocardial definition reduces the sensitivity for the detection of such. Right Ventricle: The right ventricle is normal in size and function. Atria: The left atrial size is normal. Right atrial size is normal. There is no Doppler evidence for an interatrial shunt. Mitral Valve: The mitral valve is normal in structure and function. There is mild mitral regurgitation. Aortic Valve: The aortic valve opens well. There is no aortic valve stenosis. There is mild aortic regurgitation. Tricuspid Valve: The tricuspid valve is normal in structure and function. There is mild tricuspid regurgitation. The right ventricular systolic pressure is estimated to be at least 24 mmHg based on an estimated right atrial pressure of 3 mm Hg. Pulmonic Valve: The pulmonic valve leaflets are thin and pliable; valve motion is normal. There is no pulmonic valvular regurgitation. Great Vessels: The aortic root is normal size. The dimensions of the ascending aorta are normal. The IVC is of normal diameter and collapses greater than 50% with a sniff. This suggests a low right atrial pressure of 3 mm Hg. Pericardium/ Pleura There is no pericardial effusion. There is no pleural effusion. MMode/2D Measurements & Calculations LVIDd: 4.8 cm LVOT diam: 2.0 cm LVIDs: 3.3 cm Ao root diam: 3.0 cm FS: 30.4 % asc Aorta Diam: 3.1 cm IVSd: 0.79 cm Ao Arch Diam (Prox Trans): 2.7 cm LVPWd: 0.81 cm LV lo. diameter/BSA (cm/m^2): 3.2 LV sys. diameter/BSA (cm/m^2): 2.3 LA A2 area: 16.4 cm2 RA long axis: 4.6 cm LA A4 area: 16.1 cm2 RA area: 12.0 cm2 LA length (vol): 4.9 cm RA vol: 27.0 ml LA vol: 46.2 ml RA : 18.2 ml/m2 LA vol index: 31.1 ml/m2 IVC diam: 1.1 cm RVD1 (basal): 3.1 cm TAPSE: 1.6 cm Doppler Measurements & Calculations Ao V2 max: 182.8 cm/sec LVOT Max Jorge: 93.1 cm/sec Ao V2 mean: 131.8 cm/sec LV V1 max P.5 mmHg Ao max P.4 mmHg LV V1 VTI: 17.4 cm Ao mean P.5 mmHg NACHO(I,D): 1.5 cm2 Ao V2 VTI: 34.2 cm NACHO(V,D): 1.5 cm2 sev ratio: 0.51 NACHO indexed to BSA (cm^2/m^2): 1.0 MV E max jorge: 84.8 cm/sec TR max jorge: 227.6 cm/sec MV A max jorge: 112.3 cm/sec TR max P.7 mmHg MV E/A: 0.75 PA V2 max: 93.9 cm/sec Med Peak E' Jorge: 4.8 cm/sec PA V2 mean: 65.1 cm/sec E/E' med: 17.5 PA mean P.9 mmHg Lat Peak E' Jorge: 8.9 cm/sec PA pr(Accel): 41.3 mmHg E/E' lat: 9.5 E/e' average: 13.5 MV dec time: 0.19 sec SV(LVOT): 52.7 ml Reading Physician:12:04 PM
--- NOTE | 2024-08-01 07:27 | PM.HP.1 ---
History of Present Illness History of Present Illness Date Patient Seen: 08/01/24 Time Patient Seen: 07:05 Chief complaint: not feeling well Narrative: 79 year old female with type 2 diabetes and remote history of breast cancer admitted with probable cellulitis and congestive heart failure/pulmonary edema Patient admitted to the hospital in early June with hyponatremia and weakness. Hyponatremia felt to be secondary to thiazide diuretic. Electrolytes were corrected and patient was discharged improved. However she was struggled to function since that time just feeling unwell in more nonspecific than specific fashion. Lab work has been unremarkable in exact etiology for ongoing symptoms has defied clear explanation Patient came to the ER on the - because of increasing warmth of right arm (arm affected by lymphedema after lymph node dissection and breast cancer surgery). She was had repeated episodes of cellulitis in this arm and felt like that was beginning, and knows that early treatment is important. In addition she had significantly increased weakness at home took 2 individuals to get her up out of her chair to get in the car to come to the ER. She apparently had some slurring of her words and seem to be delirious at home talking to family on the phone who became concerned. In the ER she was also found to be modestly hypoxic with O2 saturation in the high 80s at times but mostly 90-92%. ER evaluation demonstrated a leukocytosis with left shift, minimally elevated BNP but evidence on CT angiography of pulmonary edema. Electrolytes are actually okay renal function stable procalcitonin and lactate normal. She was admitted for IV diuresis and IV antibiotics Of note she was also minimally anemic which has been present often on for the last 12-24 months. 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) Irritable bowel syndrome (09/22/14) Lymphedema of upper extremity (11/14/14) Acquired hypothyroidism (12/24/12) Essential hypertension (04/21/11) Surgical History History of cataract surgery (2007) History of colonoscopy (06/2010) Anesthesia History of thyroidectomy (05/1988) Status post hysterectomy (09/09/13) Status post delivery (1969) Status post delivery (1964) History of total mastectomy (11/28/07) Family History Brother Age: 95 Hypertension Child Age: 54 Hypothyroidism Father Coronary atherosclerosis Hypertension High cholesterol Aneurysm Mother Hypertension Liver disease Grandmother Diabetes mellitus Social History marital status: number of children: 2 household members: spouse lives independently: Yes caregiver/support person: No housing: house pets and animals: Yes education level: college (4 years) 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, 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 [employer] [employer] [employer]: over 6 months ago ([place], no longer travel) leisure activities: exercise (Walking), 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, TV) Smoking Status: Former smoker Tobacco: How many years used: 20 Smokeless tobacco user: other (Cigarettes) quit status: quit date established (Unsure of date.) second hand exposure: Yes alcohol intake: current substance use type: does not use Meds Home Medications and Allergies Home Medications Medication Instructions Recorded Confirmed Type post mastectomy bra #2 ea 04/11/21 08/01/24 Rx famciclovir 125 mg tablet 125 mg PO DAILY #90 tabs 08/27/23 08/01/24 Rx metformin 500 mg tablet 1,000 mg (2 x 500 mg) PO BID #360 10/30/23 08/01/24 Rx tabs hyoscyamine sulfate 0.125 mg See Rx Instructions .Route 12/03/23 08/01/24 Rx sublingual tablet .COMPLEX #30 ea gabapentin 100 mg capsule 100 mg PO BEDTIME #90 caps 12/10/23 08/01/24 Rx clobetasol 0.05 % topical cream 1 applic topical .weekly PRN 01/04/24 08/01/24 Rx Vulvar irritation #30 grams lisinopril 40 mg tablet 40 mg PO DAILY #90 tabs 04/07/24 08/01/24 Rx atorvastatin 40 mg tablet (Lipitor) 40 mg PO HS #90 tabs 05/26/24 08/01/24 Rx levothyroxine 88 mcg tablet 88 mcg PO DAILY #90 tabs 06/04/24 08/01/24 Rx ondansetron 4 mg disintegrating 4 mg PO Q6H PRN nausea and 06/05/24 08/01/24 Rx tablet vomiting #20 tabs atenolol 50 mg tablet 50 mg PO BID #180 tabs 07/07/24 08/01/24 Rx furosemide 20 mg tablet 20 mg PO DAILY #90 tabs 07/17/24 08/01/24 Rx Allergies Allergy/AdvReac Type Severity Reaction Status Date / Time levofloxacin [LEVOFLOXACIN] Allergy Intermediate ITCHY HIVES Verified 07/17/24 16:33 vancomycin [VANCOMYCIN] Allergy Intermediate RASH/HIVES Verified 07/17/24 16:33 06/25/17 Sulfa (Sulfonamide Allergy Mild RASH Verified 07/17/24 16:33 Antibiotics) [SULFA (SULFONAMIDE ANTIBIOTICS)] chlorthalidone AdvReac Severe hyponatremi Verified 07/17/24 16:33 a amlodipine AdvReac Intermediate leg Verified 07/17/24 16:33 swelling adhesive [ADHESIVE] AdvReac Mild MAYORGA AND Verified 07/17/24 16:33 IRRITATION FROM TAPE oxycodone [OXYCODONE] AdvReac Mild MAKES HER Verified 07/17/24 16:33 SICK Exam Vital Signs (past 8 hours): - 07/31/24 23:30 07/31/24 23:40 07/31/24 23:40 Temperature Pulse Rate 93 H 93 H Respiratory Rate 24 25 H Blood Pressure 147/65 H Pulse Oximetry 95 92 Oxygen Delivery Method Oxygen Flow Rate Fraction of Inspired Oxygen 08/01/24 00:00 08/01/24 00:00 08/01/24 00:30 Temperature Pulse Rate 93 H 94 H Respiratory Rate 23 19 Blood Pressure 145/65 H Pulse Oximetry 95 92 Oxygen Delivery Method Oxygen Flow Rate Fraction of Inspired Oxygen 08/01/24 00:30 08/01/24 01:00 08/01/24 01:30 Temperature 99.3 F Pulse Rate 93 H 93 H Respiratory Rate 20 23 Blood Pressure 150/67 H Pulse Oximetry 91 95 Oxygen Delivery Method Oxygen Flow Rate Fraction of Inspired Oxygen 08/01/24 02:00 08/01/24 02:11 08/01/24 02:41 Temperature Pulse Rate 93 H 97 H 99 H Respiratory Rate 24 16 26 H Blood Pressure Pulse Oximetry 90 L 97 95 Oxygen Delivery Method Nasal Cannula Oxygen Flow Rate 2 Fraction of Inspired Oxygen 28 08/01/24 03:00 08/01/24 03:20 08/01/24 03:30 Temperature 99.7 F H Pulse Rate 94 H 92 H 96 H Respiratory Rate 24 18 23 Blood Pressure 136/56 L Pulse Oximetry 95 95 93 Oxygen Delivery Method Oxygen Flow Rate Fraction of Inspired Oxygen 08/01/24 04:00 08/01/24 04:09 08/01/24 04:09 Temperature Pulse Rate 92 H 90 Respiratory Rate 25 H 25 H Blood Pressure 158/69 H Pulse Oximetry 93 93 Oxygen Delivery Method Nasal Cannula Nasal Cannula Oxygen Flow Rate 2 2 Fraction of Inspired Oxygen Fraction of Inspired Oxygen 28 SaO2/FiO2 Ratio 346 Oxygen Delivery Method Nasal Cannula Oxygen Flow Rate 2 Narrative Exam Narrative: Elderly female in no obvious distress lying in hospital bed HEENT-unremarkable Lungs-clear good breath sounds Heart-regular rate and rhythm Abdomen-benign Extremities-very warm and erythematous right upper extremity to proximal 1/3 of humerus Objective Labs 08/01/24 06:25 08/01/24 06:25 Labs: Laboratory Results - last 24 hr 07/31/24 07/31/24 07/31/24 22:20 22:28 23:14 WBC 14.5 H D RBC 3.61 L Hgb 10.3 L Hct 30.9 L MCV 85.7 MCH 28.6 MCHC 33.3 RDW 14.0 Plt Count 306 Neut % (Auto) 93.8 H D Lymph % (Auto) 2.7 L [place] % (Auto) 2.8 L Eos % (Auto) 0.6 L Baso % (Auto) 0.1 Neut # (Auto) 87533 H Lymph # (Auto) 400 L [place] # (Auto) 400 Eos # (Auto) 100 Baso # (Auto) 0 Sodium 131 L Potassium 3.5 Chloride 99 Carbon Dioxide 27 BUN 25 H Creatinine 1.03 Estimated GFR 55 L BUN/Creatinine Ratio 24.3 H Glucose 140 H Lactate 1.8 Calcium 8.9 Total Bilirubin 0.4 AST 32 ALT 24 Alkaline Phosphatase 66 Total Creatine Kinase 38 Troponin I < 0.012 NT-Pro-B Natriuret Pep 1650 H Total Protein 7.6 Albumin 4.1 Globulin 3.5 Albumin/Globulin Ratio 1.2 Procalcitonin 0.088 Urine Color Yellow Urine Appearance Clear Urine pH 7.0 Ur Specific [place] 1.010 Urine Protein Negative Urine Glucose (UA) Negative Urine Ketones Negative Urine Occult Blood Negative Urine Nitrate Negative Urine Bilirubin Negative Urine Urobilinogen 0.2 Ur Leukocyte Esterase 1+ H Urine RBC 0-1/hpf Urine WBC 5-10/hpf H Ur Squamous Epith Cells 0-1 /hpf Urine Bacteria Occasional (0-1) Ur Culture Indicated? Specimen cultured Vol Urine Centrifuged 10ml (spun) Chlamy pneumoniae PCR Not detected Adenovirus (PCR) Not detected B. pertussis DNA (PCR) Not detected B.parapertussis DNA PCR Not detected Coronavirus OC43 (PCR) Not detected Coronavirus HKU1 (PCR) Not detected Coronavirus 229E (PCR) Not detected SARS-CoV-2 (PCR) Not detected Coronavirus NL63 (PCR) Not detected Human Metapneumovir PCR Not detected Influenza Type A (PCR) Not detected Influenza Type B (PCR) Not detected M. pneumoniae (PCR) Not detected Parainfluenza 1 (PCR) Not detected Parainfluenza 2 (PCR) Not detected Parainfluenza 3 (PCR) Not detected Parainfluenza 4 (PCR) Not detected RSV (PCR) Not detected Entero/Rhino (PCR) Not detected 08/01/24 06:25 WBC 14.3 H RBC 3.47 L Hgb 9.9 L Hct 29.8 L MCV 85.7 MCH 28.7 MCHC 33.4 RDW 13.8 Plt Count 264 Neut % (Auto) 92.5 H Lymph % (Auto) 3.4 L [place] % (Auto) 3.5 Eos % (Auto) 0.0 L Baso % (Auto) 0.6 Neut # (Auto) 74375 H Lymph # (Auto) 500 L [place] # (Auto) 500 Eos # (Auto) 0 Baso # (Auto) 100 Sodium 134 L Potassium 3.4 Chloride 99 Carbon Dioxide 26 BUN 21 H Creatinine 1.05 H Estimated GFR 53 L BUN/Creatinine Ratio 20.0 Glucose 127 H Lactate Calcium 8.4 Total Bilirubin 0.5 AST 30 ALT 23 Alkaline Phosphatase 57 Total Creatine Kinase Troponin I NT-Pro-B Natriuret Pep Total Protein 6.5 Albumin 3.7 Globulin 2.8 Albumin/Globulin Ratio 1.3 Procalcitonin Urine Color Urine Appearance Urine pH Ur Specific [place] Urine Protein Urine Glucose (UA) Urine Ketones Urine Occult Blood Urine Nitrate Urine Bilirubin Urine Urobilinogen Ur Leukocyte Esterase Urine RBC Urine WBC Ur Squamous Epith Cells Urine Bacteria Ur Culture Indicated? Vol Urine Centrifuged Chlamy pneumoniae PCR Adenovirus (PCR) B. pertussis DNA (PCR) B.parapertussis DNA PCR Coronavirus OC43 (PCR) Coronavirus HKU1 (PCR) Coronavirus 229E (PCR) SARS-CoV-2 (PCR) Coronavirus NL63 (PCR) Human Metapneumovir PCR Influenza Type A (PCR) Influenza Type B (PCR) M. pneumoniae (PCR) Parainfluenza 1 (PCR) Parainfluenza 2 (PCR) Parainfluenza 3 (PCR) Parainfluenza 4 (PCR) RSV (PCR) Entero/Rhino (PCR) Assessment & Plan Assessment & Plan narrative: 1. Cellulitis in arm affected by lymphedema-continue with parental antibiotics until vastly improved. Patient also started on oral doxycycline in the ER. This has been an effective drug for her and sometimes has been effective in treating her cellulitis as an outpatient. Continue that for now given that it was started 2. Pulmonary edema-continue with IV diuresis with careful attention to renal function electrolytes. Echocardiography will be performed. Continue with oxygen replacement therapy 3. Acute hypoxic respiratory failure-continue oxygen replacement therapy. Likely secondary to pulmonary edema as above 4. Type 2 diabetes on oral meds-continue patient's meds with coverage insulin and carb consistent diet 5. Hypertension-continue to monitor patient's blood pressure and continue her home meds. Blood pressure has been somewhat difficult to control since her thiazide diuretic was discontinued (due to the hyponatremia) 6. Hypothyroidism-continue patient's thyroid replacement therapy 7. Hyperlipidemia-continue patient's lipid lowering therapy 8. VTE prophylaxis-Lovenox for chemo prophylaxis in addition to SCDs 9. Code status-patient requests full code in the event of a sudden cardiac or respiratory arrest which is not anticipated 10. Anemia-likely anemia of chronic disease more than anything else. Will go ahead and repeat iron levels B12 folic acid. Guaiac stools for evidence of GI bleed. Time-Based Coding :: [TOTAL MINUTES] spent with patient and on the chart (including review of chart, obtaining history, exam, reviewing outside data, placing orders, documenting exam and treatment plan, and counseling patient) on [DATE]. Quality VTE Deep Vein Thrombosis/Pulmonary Embolism Present on Admission: No IH PROFEE Charge Codes Initial inpatient/observation care: [id number]
[2024-08-01] MEDS: lisinopriL 20 MG TABLET 40 MG PO (08:15)
[2024-08-01] MEDS: POTASSIUM CHLORIDE 20 MEQ TAB PO ×2 (08:15→17:48)
[2024-08-01] MEDS: ENOXAPARIN 40 MG/0.4 ML SYRINGE SUBCUT (08:16)
[2024-08-01] MEDS: METFORMIN HCL 500 MG TABLET 1000 MG PO ×2 (08:16→21:22)
[2024-08-01] MEDS: atenoloL 50 MG TABLET PO ×2 (08:16→21:22)
[2024-08-01] MEDS: LEVOTHYROXINE 88 MCG TABLET PO (08:16)
[2024-08-01] MEDS: SODIUM CHLORIDE 0.9% FLUSH 10 ML IV ×2 (08:17→21:23)
--- NOTE | 2024-08-01 11:30 | PT.IIE ---
Surgical History (Last Reviewed 08/01/24 @ 07:31 by Jatin Camarena MD) Anesthesia History of cataract surgery (2007) History of colonoscopy (06/2010) History of thyroidectomy (05/1988) History of total mastectomy (11/28/07) Status post delivery (1964) Status post delivery (1969) Status post hysterectomy (09/09/13) Medical History (Last Reviewed 08/01/24 @ 07:31 by Jatin Camarena MD) Abnormal LFTs (04/21/11) Acquired hypothyroidism (12/24/12) Cataract (2007) Chicken pox Chronic renal failure, stage 3a Controlled type 2 diabetes mellitus Diverticular disease (06/2010) Eczema (~1950) Essential hypertension (04/21/11) 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) Irritable bowel syndrome (09/22/14) Lymphedema of upper extremity (07/24/14) Measles Mixed hyperlipidemia (06/25/15) Peripheral neuropathy Personal history of breast cancer (2007) Rubella Type 2 diabetes mellitus with hyperglycemia, without long-term current use of insulin (01/15/17) Vulvovaginitis (04/04/17) Physical Therapy Inpatient Evaluation/Re-Eval M1 PT/OT-IP Prior Functional Status Start: 08/01/24 12:25 Freq: NEEDED Status: Active Protocol: Document 08/01/24 11:30 AB (Rec: 08/01/24 12:37 AB [id number]) Medical Review Prior Functional Status Medical History Reviewed Yes Communication able to make needs known; slow to respond to questions Mobility and Gait pt stated that she was indpeendent with all mobilities and ambulation without AD Social History Household Members spouse Living Arrangements House Number of Floors (Floors) One Floor Number of Stairs To Enter/Railing? no steps to enter the house Home Environment Standard Height Toilet,Walk in Shower Home Equipment Hand Held Shower M2 PT-IP Current Condition Start: 08/01/24 12:25 Freq: NEEDED Status: Active Protocol: Document 08/01/24 11:30 AB (Rec: 08/01/24 12:37 AB [id number]) Physical Therapy Current Condition Current Condition Evaluation Date 08/01/24 Treatment Diagnosis RUE cellulitis; difficulty in walking Onset Date 08/01/24 M3 PT-IP Subjective Start: 08/01/24 12:25 Freq: NEEDED Status: Active Protocol: Document 08/01/24 11:30 AB (Rec: 08/01/24 12:37 AB [id number]) Subjective Physical Therapy Visit Type Type Initial Evaluation Visit Start Time 11:30 Visit Stop Time 11:50 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 of 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 CAR 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 AND 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 Visits 0 Physical Therapy Visit Comments Patient Comments agreeable to do PT Therapy Pain Assessment Pain Present Pain Present Denied Pain M4 PT-IP Mobility and Gait Start: 08/01/24 12:25 Freq: NEEDED Status: Active Protocol: Document 08/01/24 11:30 AB (Rec: 08/01/24 12:37 AB [id number]) PT-Bed Mobility Assessment Supine to Sit Supine to Sit Standby Assistance PT-Transfer Assessment Sit to and From Stand Sit to and from Stand Contact Guard Assistance,1 Person Assistance,Use of Upper Extremities Equipment Transfer Assistive Device None,Gait Belt Orthotic/Prosthetic Devices or Brace: No Transfers Transfer Destination Chair Transfer Technique ambulated Transfer Ability Level of Assist Standby Assistance,Contact Guard Assistance,1 Person Assistance,Use of Upper Extremities Comments Mobility Comments pt supine in bed. spouse in room. obtained PLOF and home setup. BP: 118/67. pt completed supine to sit SBA. able to sit on EOB SBA. completed sit to stand CGA and ambulated in room without AD initially SBA but needed CGA after a few steps with increase unsteadiness and decrease LE elevation/ shuffling gait. completed ~ 40 ft. pt c/o fatigue but agreed to sit up on the chair. positioned pt on the chair. call light and table placed within reach. pt does not feel like she wants to eat. encouraged pt to eat for lunch. wanted a shake for lunch. informed nurse. left pt with spouse in room. Gait Assessment Gait Gait Assistance Required: Contact Guard Assist Distance (Feet) 40 Able to Maintain Weight Bearing Status Yes During Gait Assistive Devices Assistive Device None,Gait Belt Orthotic/Prosthetic Devices or Brace: No Gait Deviations General Gait Pattern Ataxic,Decreased Stride Length ,Decreased Feet Clearance,Step -to Gait Factors Limiting Gait Function Factors Limiting Gait Function Decreased Activity Tolerance, Decreased Strength,Difficulty Following Directions,Limited Range of Motion,Poor Balance, Poor Safety Awareness PT-Balance Assessment Sitting Balance and Reactions Static Sitting Balance Ability Normal Dynamic Sitting Balance Ability Good Standing Balance and Reactions Static Standing Balance Ability Fair Dynamic Standing Balance Ability Fair Device Used without AD M5 PT-IP Objective Assessments Start: 08/01/24 12:25 Freq: NEEDED Status: Active Protocol: Document 08/01/24 11:30 AB (Rec: 08/01/24 12:37 AB [id number]) Orientation Orientation/Cognition Level of Alertness Alert Orientation Name,Place,Situation Language Function Ability Hard of Hearing Safety Awareness Decreased Safety Awareness Memory Description Short Term Impaired Gross Range of Motion Lower Extremity ROM Assessment Within Functional Limits Strength Lower Extremity Strength Assessment Within Functional Limits Muscle Tone Muscle Tone WNL Yes M6 PT-IP Treatment Start: 08/01/24 12:25 Freq: NEEDED Status: Active Protocol: Document 08/01/24 11:30 AB (Rec: 08/01/24 12:37 AB [id number]) Physical Therapy Treatment Education Education Provided Safety M7 PT-IP Assessment and Plan Start: 08/01/24 12:25 Freq: NEEDED Status: Active Protocol: Document 08/01/24 11:30 AB (Rec: 08/01/24 12:37 AB [id number]) PT Summary Assessment and Plan Potential Rehabilitation Potential Good Status of Condition at Evaluation Evolving Summary Impairments Pain,ROM,Strength,Balance, Coordination,Sensation,Tone, Cognition,Bed Mobility, Transfers,Gait,Activity Tolerance Assessment Summary pt is an 79 y/o F who is admitted for RUE cellulitis. pt requiring CGA with ambulation without AD but increase unsteadiness with increase distance of walking. pt with decrease activity tolerance affecting mobility independence. pt lives with spouse and spouse will be able to assist pt at home. will continue to assess. Goals Bed Mobility Goal Independent Transfer Goal Independent,Front Wheeled Walker Gait Goal Independent,Front Wheel Walker Gait Distance 100 Other Goals improve transfers and ambulation without AD ~ 200 ft mod I Days to Meet Goals 10 Frequency of Treatment Frequency Of Treatment Once a Day Treatment Plan Physical Therapy Treatment Plan Bed Mobility Training,Transfer Training,Gait Training, Therapeutic Exercise,Balance Retraining,Discharge Planning, Hot or Cold Pack,Neuromuscular Re-ed,Coordination Retraining Precautions Other Precautions no BP on RUE Recommendations To Nursing Amount of Assist Needed 1 Person Assist Discharge Recommendations PT Discharge Recommendations Home with 02/04 Assist Available,Home Health Equipment Needed for Home Before FWW if not safe without AD Discharge Transportation Needs at Discharge Private Vehicle
--- NOTE | 2024-08-01 13:52 | CM.DANOTE ---
DCP Assessment Note: Pt is a 78yo male, resident of [place], is admitted for cellulitis, low O2 saturation and pulmonary edema. Pt lives in a house with her spouse and her dog, Mayfield. Pt's Primary Care Provider is Dr. Jatin Camarena and insurance is Medicare and [employer]. Reviewed chart and team rounds for pt's medical status and initial discharge needs. Per rounds, pt to get IV abx course and diuresis while admitted (under inpatient status). DCP met w/patient at bedside; introduced self and role. Present in the room is patient's and two friends. Patient was found in bed, alert and oriented, cooperative with assessment. Pt confirmed living situation and good support in . Pt expressed preference in discharging home tomorrow, if available. Still not feeling close to baseline. At pt's last admission, no other discharge needs identified and pt is currently declining any referrals for the community at this time. Plan: Anticipating discharge home with spouse tomorrow, 08/02 or when medically cleared. CM team will follow closely for coordination of discharge plans. DELORES Mitchell Discharge Planning/Care Management CM Discharge Assessment Start: 08/01/24 13:50 Freq: Status: Active Protocol: Document 08/01/24 13:50 MW (Rec: 08/01/24 13:51 MW [id number]) Discharge Planning Assessment Assigned Fireman ANGELA Serna DPOA/Assigned Designee Name Miguel Tuttle, Spouse Contact Information [phone] Advance Directives? Yes Advance Directives on File Yes History Provided By Patient,Friend,Medical Record Prior Living Arrangements House Household Members spouse Type of transporation used prior to Drives own vehicle admit Discharge Plan Home Transportation Arrangement Spouse Referrals Initiated None needed Whiteboard Updated in Patient Room with Yes name and ext. # of Fireman Comment [phone] Review Status In Process Please Provide Date Initial DC 08/01/24 Assessment Was Performed Next Review Type Continued Stay Review
--- NOTE | 2024-08-01 13:56 | DI.MRI.S_ITS ---
PROCEDURE: MR STROKE Pre- and post-contrast brain MRI, non-contrast brain MR angiogram, pre- and postcontrast neck MR angiogram INDICATIONS: slurred speech TECHNIQUE: Brain: Noncontrast axial T1 spin echo, axial T2 fast spin echo, sagittal and axial FLAIR, coronal T2 fast spin echo, axial gradient echo, axial diffusion and ADC through the brain. After the administration of contrast, axial 3D VIBE of the cranial vasculature and brain. Brain MRA: Non-contrast 3-D time of flight MR angiogram, with multiple gwbzagl-gjjeakxxc-mbqomvdhlu (MIP) reformats performed. Neck MRA: Axial and sagittal TruFISP through the neck. Coronal dynamic MR angiogram during administration of contrast in the arterial and venous phases, with 3-dimenstional jaeneef-qnvfxjxns-ryqzihsbri (MIP) reformats constructed from subtraction images. COMPARISON: None. FINDINGS: Image quality: Excellent. BRAIN: CSF spaces: Ventricles are normal in size and shape. Basal cisterns are patent. No extra-axial fluid collections. Brain: No intracranial bleeds or mass effects. Lowery-white matter interface is normal. Diffusion weighted images show no acute infarct. Mild age-related global volume loss. Chronic microvascular ischemic changes are seen including within the brainstem.. Normal intravascular flow voids are present. No abnormal intracranial enhancement. Skull and face: Calvarial marrow signal is normal. Bilateral lens replacements. Otherwise, the orbits are unremarkable. Sinuses: Opacification of the right posterior ethmoid air cells. Sinuses and mastoids are otherwise clear. BRAIN MR ANGIOGRAM: Anterior circulation: Intracranial internal carotid arteries are normal in size and enhancement. The flow within the paired anterior cerebral arteries is normal and symmetric. The flow within the middle cerebral arteries is normal and symmetric. The anterior communicating artery is seen. No stenoses, occlusions, or aneurysms. Posterior circulation: The visualized portions of the vertebral arteries demonstrate normal caliber, and join to form a normal appearing basilar artery. 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 The flow within the posterior cerebral arteries is normal and symmetric. No stenoses, occlusions, or aneurysms. NECK MR ANGIOGRAM: Carotids: Great vessels demonstrate a conventional anatomy as they arise from the aortic arch. The origins of the common carotid arteries appear patent. There appears to be moderate to severe stenosis of the left subclavian artery and moderate stenosis of the right subclavian artery at the level of the mid clavicle, distal to the origin of the vertebral arteries. The calibers and courses of both common carotid arteries are normal. The bifurcation regions appear normal bilaterally. The internal carotid arteries demonstrate normal course and caliber. Posterior circulation: High-grade stenosis at the origin of the left vertebral artery. Mild stenosis at the origin of the right vertebral artery. More superior portions of both vertebral arteries demonstrate normal course and caliber, and join to form a normal appearing basilar artery. Miscellaneous: Subclavian arteries appear patent. Pre-contrast images through the neck show no soft tissue abnormalities. IMPRESSION: BRAIN MRI: No acute or subacute infarct. No acute intracranial abnormalities. Age-related global volume loss and chronic microvascular ischemic changes. BRAIN MR ANGIOGRAM: No significant arterial abnormalities. NECK MR ANGIOGRAM: The carotid arteries appear patent and normal in caliber. High-grade stenosis at the origin of the left vertebral artery. Moderate to severe stenosis of the left subclavian artery and moderate stenosis of the right subclavian artery at the level the mid clavicle. Dictated by: Tristen Duenas M.D. on 08/01/2024 at 15:44 Approved by: Tristen Duenas M.D. on 08/01/2024 at 15:54
--- NOTE | 2024-08-01 16:36 | PM.EVENT ---
Event Note Date Patient Seen: 08/01/24 Time Patient Seen: 16:36 Event Note (Rapid Response, Code, or fall): Patient awoke from a nap early this afternoon. Apparently she was quite disoriented and was slurring her words. Significant concern from nursing staff regarding possible neurologic event although she had express some of the symptoms off and on since admission Vital signs were stable she has had low-grade fever at 99.8 or so blood pressures been good oxygen saturation at 91-93% on room air Her echocardiogram done earlier was essentially normal I therefore ordered a neurologic evaluation with MRI and MR angiography of the brain/head and neck. This failed to demonstrate any acute subacute or old CVA. Some stenosis of 1 vertebral artery and a subclavian artery probably long-term frankly not, in my opinion, associated with any of her symptoms Therefore I think her neurologic symptoms are likely related to her infection. Do not have a better answer for this I would have to assume that that is a systemic symptoms much like her weakness and her pulmonary edema I think are systemic reactions to the infection. For now will continue with ceftriaxone parenterally. Repeat CBC in the morning. Blood cultures were still pending at this time as well. Tailor antibiotic therapy based on clinical results as appropriate I am hopeful that given appropriate antibiotic therapy for long enough she will reverse all of her ongoing symptoms and be able to return home in the next 48-72 hours. I would tend to keep her in the hospital probably a bit longer to ensure stability and significant clinical improvement rather than risk sending her home too early.
[2024-08-01] MEDS: ATORVASTATIN 20 MG TABLET 40 MG PO (21:22)
[2024-08-01] MEDS: GABAPENTIN 100 MG CAPSULE PO (21:22)
[2024-08-02] VITALS (8 sets, daily range): BP systolic 106–146; BP diastolic 50–60; PULSE 68–91; RESP 10–19; TEMP 36.1–36.5; O2SAT 93–97
[2024-08-02] MEDS: FUROSEMIDE 40 MG/4 ML VIAL IV (06:32)
[2024-08-02] MEDS: LEVOTHYROXINE 88 MCG TABLET PO (06:32)
[2024-08-02 06:42] LABS: Add Manual Diff / Slide Review NO; Basophils Absolute Auto 100 /uL (0-100); Eosinophils Absolute Auto 100 /uL (0-450); Eosinophils Percent Auto 0.7 % (2-4); Hematocrit 30.4 % (36-46); Hemoglobin 10.4 g/dL (12.0-16.0); Lymphocytes Absolute Auto 700 /uL (1100-4500); Lymphocytes Percent Auto 9.2 % (25-40); Mean Corpuscular HGB Conc 34.2 % (30-36); Mean Corpuscular Hemoglobin 29.2 PG (26-34); Mean Corpuscular Volume 85.5 fL (80-100); Monocytes Absolute Auto 600 /uL (0-900); Monocytes Percent Auto 7.6 % (3-14); Neutrophils Absolute Auto 6200 /uL (1500-7000); Neutrophils Percent Auto 81.5 % (50-75); Platelet Count 264 X10^3/uL (150-400); Red Blood Cell Count 3.55 X10^6/uL (4.0-5.2); Red Cell Distribution Width 13.8 % (11.6-14.8); White Blood Cell Count 7.7 X10^3/uL (4.5-11.0)
[2024-08-02 07:03] LABS: BUN Creatinine Ratio 21.1 (6-22); Blood Urea Nitrogen 26 mg/dL (7-17); Calcium 8.9 mg/dL (8.4-10.2); Carbon Dioxide 29 mmol/L (22-32); Chloride 98 mmol/L (98-107); Estimated Glomerular Filt Rate 44 mL/min (>60); Glucose 109 mg/dL (80-110); HEMOLYSIS < 15 (0-50); Potassium 3.7 mmol/L (3.4-5.1); Sodium 134 mmol/L (137-145)
[2024-08-02] MEDS: ENOXAPARIN 40 MG/0.4 ML SYRINGE SUBCUT (08:48)
[2024-08-02] MEDS: cefTRIAXone 1,000 MG in SODIUM CHLORIDE 0.9% 100 ML 200 MG IV (08:48)
[2024-08-02] MEDS: METFORMIN HCL 500 MG TABLET 1000 MG PO ×2 (08:49→21:26)
[2024-08-02] MEDS: POTASSIUM CHLORIDE 20 MEQ TAB PO ×2 (08:49→17:09)
[2024-08-02] MEDS: lisinopriL 20 MG TABLET 40 MG PO (08:49)
[2024-08-02] MEDS: SODIUM CHLORIDE 0.9% FLUSH 10 ML IV ×2 (08:49→21:27)
[2024-08-02] MEDS: atenoloL 50 MG TABLET PO ×2 (08:49→21:27)
[2024-08-02] MEDS: DOXYCYCLINE HYCLATE 100 MG TABLET PO ×2 (08:49→21:26)
--- NOTE | 2024-08-02 10:44 | PT.IPTN ---
Current Diagnoses Cellulitis of unspecified part of limb (08/01/24) Physical Therapy Treatment Note M2 PT-IP Current Condition Start: 08/01/24 12:25 Freq: NEEDED Status: Active Protocol: Document 08/01/24 11:30 AB (Rec: 08/01/24 12:37 AB [id number]) Physical Therapy Current Condition Current Condition Evaluation Date 08/01/24 Treatment Diagnosis RUE cellulitis; difficulty in walking Onset Date 08/01/24 M3 PT-IP Subjective Start: 08/01/24 12:25 Freq: NEEDED Status: Active Protocol: Document 08/02/24 10:44 AB (Rec: 08/02/24 11:12 AB [id number]) Subjective Physical Therapy Visit Type Type Treatment Note Visit Start Time 10:44 Visit Stop Time 11:05 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 pt agreeable to do PT. completed sit to stand SBA and ambulated in the hallway without AD SBA ~ 250 ft. pt presents with unsteady gait with slight LOB but with recovery. pt walked back to her room and sat on the chair. informed pt and family regarding pt ambulation and balance. pt agreed to use a SPC. educated pt on usage of SPC. pt completed ambulation using SPC SBA and presents with steadier gait. pt sat back on the chair. pt sated that she will borrow a SPC from her friend. call light and table within reach. Left pt with family. informed pt regarding d/c from PT and agreed. Gait Assessment Gait Gait Assistance Required: Standby Assistance Distance (Feet) 250 Able to Maintain Weight Bearing Status Yes During Gait Assistive Devices Assistive Device None,Straight Cane Orthotic/Prosthetic Devices or Brace: No Factors Limiting Gait Function Factors Limiting Gait Function Decreased Activity Tolerance, Decreased Strength,Poor Balance M5 PT-IP Objective Assessments Start: 08/01/24 12:25 Freq: NEEDED Status: Active Protocol: Document 08/01/24 11:30 AB (Rec: 08/01/24 12:37 AB [id number]) Orientation Orientation/Cognition Level of Alertness Alert Orientation Name,Place,Situation Language Function Ability Hard of Hearing Safety Awareness Decreased Safety Awareness Memory Description Short Term Impaired Gross Range of Motion Lower Extremity ROM Assessment Within Functional Limits Strength Lower Extremity Strength Assessment Within Functional Limits Muscle Tone Muscle Tone WNL Yes M6 PT-IP Treatment Start: 08/01/24 12:25 Freq: NEEDED Status: Active Protocol: Document 08/02/24 10:44 AB (Rec: 08/02/24 11:12 AB [id number]) Physical Therapy Treatment Education Education Provided Safety M7 PT-IP Assessment and Plan Start: 08/01/24 12:25 Freq: NEEDED Status: Active Protocol: Document 08/02/24 10:44 AB (Rec: 08/02/24 11:12 AB [id number]) PT Summary Assessment and Plan Potential Rehabilitation Potential Good Summary Impairments Strength,Transfers,Gait, Activity Tolerance Progress Towards Goals Progressing Toward Goals Assessment Summary pt able to ambulate ~ 250 ft without AD SBA but with unsteady gait and slight LOB but with recovery. educated pt on use of SPC and was able to ambulate SBA and presents a steadier gait. pt agreed to use SPC at this time. No further PT interventions indicated. Goals Bed Mobility Goal Independent Transfer Goal Independent,Cane Gait Goal Independent,Cane Gait Distance 100 Other Goals improve transfers and ambulation without AD ~ 200 ft mod I Days to Meet Goals 10 Frequency of Treatment Frequency Of Treatment Discharge Treatment Plan Physical Therapy Treatment Plan Bed Mobility Training,Transfer Training,Gait Training, Therapeutic Exercise,Balance Retraining,Discharge Planning, Hot or Cold Pack,Neuromuscular Re-ed,Coordination Retraining Precautions Other Precautions no BP on RUE Recommendations To Nursing Amount of Assist Needed Standby Assistance Discharge Recommendations PT Discharge Recommendations Home with Assistance, Outpatient PT Transportation Needs at Discharge Private Vehicle
--- NOTE | 2024-08-02 11:07 | P.PN_ITS ---
Subjective Subjective Date Patient Seen: 08/02/24 Interval history: The pt reports that she is overall feeling well this morning. Her right arm is less warm than previously, however remains quite swollen. She denies any significant pain in the arm. She denies any chest pain, SOB, LE edema. She feels her breathing is normal. Exam Vital Signs (past 8 hours): - 08/02/24 06:00 08/02/24 08:00 08/02/24 08:49 Temperature 97.2 F L 97.4 F L Pulse Rate 69 70 70 Respiratory Rate 18 12 Blood Pressure 119/56 L 129/54 L 129/54 L Pulse Oximetry 95 94 Oxygen Delivery Method Oxygen Flow Rate 0 0 08/02/24 09:00 Temperature Pulse Rate Respiratory Rate Blood Pressure Pulse Oximetry 97 Oxygen Delivery Method Room Air Oxygen Flow Rate 0 Fraction of Inspired Oxygen 28 SaO2/FiO2 Ratio 346 Oxygen Delivery Method Room Air Oxygen Flow Rate 0 Narrative Exam Narrative: Gen: NAD, sitting comfortably in chair, appears well CV: RRR, no murmurs Resp: clear to auscultation bilaterally Abd: soft, nontender Ext: right arm swollen to approximately elbow, erythema extending to upper arm but below line previously drawn, not warm to touch; no LE edema Objective Labs 08/02/24 06:20 08/02/24 06:20 Labs: Laboratory Results - last 24 hr 08/02/24 06:20 WBC 7.7 RBC 3.55 L Hgb 10.4 L Hct 30.4 L MCV 85.5 MCH 29.2 MCHC 34.2 RDW 13.8 Plt Count 264 Neut % (Auto) 81.5 H Lymph % (Auto) 9.2 L Taliaferro % (Auto) 7.6 Eos % (Auto) 0.7 L Baso % (Auto) 1.0 Neut # (Auto) 6200 Lymph # (Auto) 700 L Taliaferro # (Auto) 600 Eos # (Auto) 100 Baso # (Auto) 100 Sodium 134 L Potassium 3.7 Chloride 98 Carbon Dioxide 29 BUN 26 H Creatinine 1.23 H Estimated GFR 44 L BUN/Creatinine Ratio 21.1 Glucose 109 Calcium 8.9 [facility] Medical History Chronic renal failure, stage 3a Peripheral neuropathy Controlled type 2 diabetes mellitus Cataract (2007) Chicken pox Measles Rubella Eczema (~1950) Diverticular disease (06/2010) Abnormal LFTs (04/21/11) Vulvovaginitis (04/04/17) Type 2 diabetes mellitus with hyperglycemia, without long-term current use of insulin (01/15/17) Personal history of breast cancer (2007) Mixed hyperlipidemia (06/25/15) 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) Irritable bowel syndrome (09/22/14) Lymphedema of upper extremity (07/24/14) Acquired hypothyroidism (12/24/12) Essential hypertension (04/21/11) Surgical History History of cataract surgery (2007) History of colonoscopy (06/2010) Anesthesia History of thyroidectomy (05/1988) Status post hysterectomy (09/09/13) Status post delivery (1969) Status post delivery (1964) History of total mastectomy (11/28/07) Family History Brother Age: 95 Hypertension Child Age: 54 Hypothyroidism Father Coronary atherosclerosis Hypertension High cholesterol Aneurysm Mother Hypertension Liver disease Grandmother Diabetes mellitus Social History marital status: number of children: 2 household members: spouse lives independently: Yes caregiver/support person: No housing: house pets and animals: Yes education level: college (4 years) 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 Cellulitis in arm affected by lymphedema: Improving gradually. - Continue PO Doxycycline and IV Ceftriaxone 2. Pulmonary edema: Improved with IV diuresis. Echo reassuring and normal. Stable on room air. Received Lasix yesterday. - D/C Lasix - Encourage ambulation 3. Acute hypoxic respiratory failure: Likely secondary to pulmonary edema as above. Resolved. 4. Type 2 diabetes on oral meds: - Continue home Metformin - Sliding scale for coverage 5. Hypertension: BP in good range. Has been more difficult to control after d/c of thiazide due to hyponatremia. - Continue home Atenolol 6. Hypothyroidism: - Continue home Levothyroxine 7. Hyperlipidemia: - Continue home Statin 8. Anemia: Likely anemia of chronic disease. Overall mild. - B12, folate, iron levels pending DVT ppx: SCDs, Lovenox Code: Full FEN: Carb controlled Time-Based Coding :: [TOTAL MINUTES] spent with patient and on the chart (including review of chart, obtaining history, exam, reviewing outside data, placing orders, documenting exam and treatment plan, and counseling patient) on [DATE]. Quality VTE Deep Vein Thrombosis/Pulmonary Embolism Present on Admission: No IH PROFEE Charge codes Subsequent inpatient/observation care: 34612
--- NOTE | 2024-08-02 11:50 | PT-IP ANOTE ---
New PT eval received. pt just d/c'd today from PT. pt is SBA with mobilities and plans to go home with spouse to assist. No further PT intervention needed at this time. will d/c PT eval order. nurse informed.
[2024-08-02 13:04] LABS: HEMOLYSIS < 15 (0-50); Total Iron Binding Capacity 268 ug/dL (265-497); Transferrin 235 mg/dL (206-381)
[2024-08-02 14:11] LABS: Iron 24 ug/dL (37-170); Percent Iron Saturation 9 % (15-50)
[2024-08-02 15:02] LABS: Folate > 20.0 ng/mL (2.76-20.0); Vitamin B12 557 pg/mL (239-931)
[2024-08-02] MEDS: GABAPENTIN 100 MG CAPSULE PO (21:26)
[2024-08-02] MEDS: ATORVASTATIN 20 MG TABLET 40 MG PO (21:26)
[2024-08-03 05:00] VITALS: BP 146/50; PULSE 64; RESP 18; TEMP 36; O2SAT 92
[2024-08-03] MEDS: LEVOTHYROXINE 88 MCG TABLET PO (05:35)
[2024-08-03 06:09] LABS: Add Manual Diff / Slide Review NO; Basophils Absolute Auto 0 /uL (0-100); Basophils Percent Auto 0.2 % (0-2); Eosinophils Absolute Auto 200 /uL (0-450); Eosinophils Percent Auto 5.5 % (2-4); Hemoglobin 10.3 g/dL (12.0-16.0); Lymphocytes Absolute Auto 800 /uL (1100-4500); Lymphocytes Percent Auto 17.8 % (25-40); Mean Corpuscular HGB Conc 33.3 % (30-36); Mean Corpuscular Hemoglobin 28.6 PG (26-34); Mean Corpuscular Volume 86.1 fL (80-100); Monocytes Absolute Auto 500 /uL (0-900); Monocytes Percent Auto 10.9 % (3-14); Neutrophils Absolute Auto 2800 /uL (1500-7000); Neutrophils Percent Auto 65.6 % (50-75); Platelet Count 275 X10^3/uL (150-400); Red Cell Distribution Width 13.8 % (11.6-14.8); White Blood Cell Count 4.3 X10^3/uL (4.5-11.0)
[2024-08-03 06:22] LABS: Blood Urea Nitrogen 26 mg/dL (7-17); Calcium 9.2 mg/dL (8.4-10.2); Carbon Dioxide 29 mmol/L (22-32); Chloride 99 mmol/L (98-107); Estimated Glomerular Filt Rate 49 mL/min (>60); Glucose 95 mg/dL (80-110); HEMOLYSIS < 15 (0-50); Potassium 4.2 mmol/L (3.4-5.1); Sodium 132 mmol/L (137-145)
[2024-08-03 07:00] VITALS: O2SAT 93
[2024-08-03 08:00] VITALS: BP 119/84; PULSE 68; RESP 16; TEMP 36.2; O2SAT 98
[2024-08-03 08:40] VITALS: BP 119/84; PULSE 68
[2024-08-03] MEDS: lisinopriL 20 MG TABLET 40 MG PO (08:40)
[2024-08-03] MEDS: POTASSIUM CHLORIDE 20 MEQ TAB PO (08:40)
[2024-08-03] MEDS: METFORMIN HCL 500 MG TABLET 1000 MG PO (08:41)
[2024-08-03] MEDS: atenoloL 50 MG TABLET PO (08:41)
[2024-08-03] MEDS: DOXYCYCLINE HYCLATE 100 MG TABLET PO (08:41)
[2024-08-03] MEDS: ENOXAPARIN 40 MG/0.4 ML SYRINGE SUBCUT (08:41)
[2024-08-03] MEDS: cefTRIAXone 1,000 MG in SODIUM CHLORIDE 0.9% 100 ML 200 MG IV (08:42)
[2024-08-03] MEDS: SODIUM CHLORIDE 0.9% FLUSH 10 ML IV (08:44)
--- NOTE | 2024-08-03 11:46 | PM.DS.1 ---
History of Present Illness History of Present Illness Date Patient Seen: 08/03/24 Chief complaint: not feeling well Narrative: 79 year old female with type 2 diabetes and remote history of breast cancer admitted with probable cellulitis and congestive heart failure/pulmonary edema Patient admitted to the hospital in early June with hyponatremia and weakness. Hyponatremia felt to be secondary to thiazide diuretic. Electrolytes were corrected and patient was discharged improved. However she was struggled to function since that time just feeling unwell in more nonspecific than specific fashion. Lab work has been unremarkable in exact etiology for ongoing symptoms has defied clear explanation Patient came to the ER on the - because of increasing warmth of right arm (arm affected by lymphedema after lymph node dissection and breast cancer surgery). She was had repeated episodes of cellulitis in this arm and felt like that was beginning, and knows that early treatment is important. In addition she had significantly increased weakness at home took 2 individuals to get her up out of her chair to get in the car to come to the ER. She apparently had some slurring of her words and seem to be delirious at home talking to family on the phone who became concerned. In the ER she was also found to be modestly hypoxic with O2 saturation in the high 80s at times but mostly 90-92%. ER evaluation demonstrated a leukocytosis with left shift, minimally elevated BNP but evidence on CT angiography of pulmonary edema. Electrolytes are actually okay renal function stable procalcitonin and lactate normal. She was admitted for IV diuresis and IV antibiotics Of note she was also minimally anemic which has been present often on for the last 12-24 months. Normal indices Discharge Providers Provider Date of admission: 08/01/24 03:23 Discharge Date: 08/03/24 Primary care physician: Jatin Camarena MD Consults: 08/01/24 08:07 Consult to Physical Therapy Evaluate & Treat Comment: Physician Instructions: Evaluate and Treat 08/02/24 11:29 Consult to Physical Therapy Evaluate & Treat Comment: Physician Instructions: Evaluate and Treat Discharge provider: Heather Mena MD Summary Hospital Course Discharge Diagnosis: 1. Cellulitis in arm affected by lymphedema 2. Pulmonary edema 3. Acute hypoxic respiratory failure 4. Type 2 diabetes on oral meds 5. Hypertension 6. Hypothyroidism 7. Hyperlipidemia 8. Iron deficiencey anemia Hospital Course: The pt presented with right arm cellulitis, found to be mildly hypoxic consistent with pulmonary edema based on imaging. She was initiated on antibiotics, and her arm gradually improved. At the time of discharge there were very minimal erythema and the swelling was significantly improved. She felt it was nearly back to baseline. The pt initially required oxygen support, however this was weaned as the pt diuresed on IV Furosemide. At the time of discharge the pt had been on room air for > 24hrs. The pt will continue dual antibiotic therapy at home, which she was on while in the hospital, for a total of 7 days. She has been mildly anemic, and iron studies showed deficiency, so she will also start oral iron supplementation. Exam Vital Signs (past 8 hours): - 08/03/24 05:00 08/03/24 07:00 08/03/24 08:00 Temperature 96.8 F L 97.1 F L Pulse Rate 64 68 Respiratory Rate 18 16 Blood Pressure 146/50 H 119/84 Pulse Oximetry 92 93 98 Oxygen Delivery Method Room Air Oxygen Flow Rate 0 0 0 08/03/24 08:40 Temperature Pulse Rate 68 Respiratory Rate Blood Pressure 119/84 Pulse Oximetry Oxygen Delivery Method Oxygen Flow Rate Fraction of Inspired Oxygen 28 SaO2/FiO2 Ratio 346 Oxygen Delivery Method Room Air Oxygen Flow Rate 0 Narrative Exam Narrative: Gen: NAD, sitting comfortably in chair, appears well CV: RRR, no murmurs Resp: clear to auscultation bilaterally Abd: soft, nontender Ext: right arm with minimal swelling, no significant erythema or warmth Objective Labs 08/03/24 05:10 08/03/24 05:10 Labs: Laboratory Results - last 24 hr 08/02/24 08/03/24 06:20 05:10 WBC 4.3 L RBC 3.60 L Hgb 10.3 L Hct 31.0 L MCV 86.1 MCH 28.6 MCHC 33.3 RDW 13.8 Plt Count 275 Neut % (Auto) 65.6 Lymph % (Auto) 17.8 L Josephine % (Auto) 10.9 Eos % (Auto) 5.5 H Baso % (Auto) 0.2 Neut # (Auto) 2800 Lymph # (Auto) 800 L Josephine # (Auto) 500 Eos # (Auto) 200 Baso # (Auto) 0 Sodium 132 L Potassium 4.2 Chloride 99 Carbon Dioxide 29 BUN 26 H Creatinine 1.13 H Estimated GFR 49 L BUN/Creatinine Ratio 23.0 H Glucose 95 Calcium 9.2 Iron 24 L TIBC 268 % Saturation 9 L Transferrin 235 Vitamin B12 557 Folate > 20.0 H [facility] Medical History Chronic renal failure, stage 3a Peripheral neuropathy Controlled type 2 diabetes mellitus Cataract (2007) Chicken pox Measles Rubella Eczema (~1950) Diverticular disease (06/2010) Abnormal LFTs (04/21/11) Vulvovaginitis (04/04/17) Type 2 diabetes mellitus with hyperglycemia, without long-term current use of insulin (01/15/17) Personal history of breast cancer (2007) Mixed hyperlipidemia (06/25/15) 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) Irritable bowel syndrome (09/22/14) Lymphedema of upper extremity (07/24/14) Acquired hypothyroidism (12/24/12) Essential hypertension (04/21/11) Surgical History History of cataract surgery (2007) History of colonoscopy (06/2010) Anesthesia History of thyroidectomy (05/1988) Status post hysterectomy (09/09/13) Status post delivery (1969) Status post delivery (1964) History of total mastectomy (11/28/07) Family History Brother Age: 95 Hypertension Child Age: 54 Hypothyroidism Father Coronary atherosclerosis Hypertension High cholesterol Aneurysm Mother Hypertension Liver disease Grandmother Diabetes mellitus Social History marital status: number of children: 2 household members: spouse lives independently: Yes caregiver/support person: No housing: house pets and animals: Yes education level: college (4 years) 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, 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: [employer] travel history: over 6 months ago ([place], no longer travel) leisure activities: exercise (Walking), 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, TV) Smoking Status: Former smoker Tobacco: How many years used: 20 Smokeless tobacco user: other (Cigarettes) quit status: quit date established (Unsure of date.) second hand exposure: Yes alcohol intake: current substance use type: does not use Discharge Plan Discharge Plan Patient Disposition: Home Discharge orders & Medications Prescriptions: New doxycycline hyclate 100 mg Tablet 100 mg PO BID Qty: 8 0RF cephalexin 500 mg capsule 500 mg PO BID Qty: 8 0RF ferrous sulfate 325 mg (65 mg iron) tablet 325 mg PO DAILY Qty: 30 0RF Continued famciclovir 125 mg tablet 125 mg PO DAILY Qty: 90 3RF Patient Comments: as needed metformin 500 mg tablet 1,000 mg PO BID Qty: 360 3RF hyoscyamine sulfate 0.125 mg tablet, sublingual See Rx Instructions .ROUTE .COMPLEX Qty: 30 4RF Dose Instruction: TAKE 1 TABLET BY MOUTH CHEWED AND DISSOLVED UP TO EVERY 4 HOURS NEEDED FOR ABD PAIN Rx Instructions: TAKE 1 TABLET BY MOUTH CHEWED AND DISSOLVED UP TO EVERY 4 HOURS NEEDED FOR ABD PAIN gabapentin 100 mg capsule 100 mg PO BEDTIME Qty: 90 3RF lisinopril 40 mg tablet 40 mg PO DAILY Qty: 90 3RF atorvastatin [Lipitor] 40 mg tablet 40 mg PO HS Qty: 90 3RF levothyroxine 88 mcg tablet 88 mcg PO DAILY Qty: 90 3RF atenolol 50 mg tablet 50 mg PO BID Qty: 180 3RF clobetasol 0.05 % cream 1 applic topical .weekly PRN (Reason: Vulvar irritation) Qty: 30 6RF ondansetron 4 mg tablet,disintegrating 4 mg PO Q6H PRN (Reason: nausea and vomiting) Qty: 20 0RF furosemide 20 mg tablet 20 mg PO DAILY Qty: 90 3RF (DME) post mastectomy bra See Rx Instructions .Route .MEDSUPPLY Qty: 2 0RF Rx Instructions: As directed Follow up/Referrals: Jatin Camarena MD [Primary Care Provider] - 1 Week Diet/Activity/Treatments Diet: Diet as Tolerated and Regular Skin/Wound/Dressing Care Report to your healthcare provider any signs of infection, such as:: chills, fever, increased pain and unusual redness Visit Report/Discharge Packet Stand Alone Forms: Patient Portal/API, Stroke Signs & Symptoms, Patient Portal/API/Survey Discharge Data Primary Care Provider: Jatin Camarena Quality VTE Deep Vein Thrombosis/Pulmonary Embolism Present on Admission: No IH PROFEE Charge Codes Discharge inpatient/observation: 36545
--- NOTE | 2024-08-03 13:03 | PC.NURSE ---
Discharge Note Patient A&O, VSS, RA, no complaints of pain/discomfort. Discharge packet reviewed with patient, all questions/concerns addressed. PIV/TELE discontinued. Patient able to dress self and pack all belongings. Patient taken down to POV accompanied by family.
--- NOTE | 2024-08-03 13:09 | CM.DPNOTE ---
DC Note Discharge home w/sp today; patient denies need for HH referral. No needs from this CM team identified. ZACHARY
== END 2024-08-03 12:50 | disposition home or self-care (01) | DRG 602 ==
LOC: ED 08-01 01:54 → AC 08-01 06:27
PROVIDERS: Family Medicine; Admitting Provider Family Medicine; Emergency Provider Emergency Medicine; Family Provider Internal Medicine; PCP Internal Medicine; Referring Provider Emergency Medicine; Visit Provider Internal Medicine
DX: L03.113 Cellulitis of right upper limb (principal); J96.01 Acute respiratory failure with hypoxia; J81.1 Chronic pulmonary edema; I97.89 Other postprocedural complications and disorders of the circulatory system, not elsewhere classified; R47.81 Slurred speech; E11.9 Type 2 diabetes mellitus without complications; I10 Essential (primary) hypertension; E03.9 Hypothyroidism, unspecified; E78.5 Hyperlipidemia, unspecified; I89.0 Lymphedema, not elsewhere classified; D50.9 Iron deficiency anemia, unspecified; Z87.891 Personal history of nicotine dependence; Z79.84 Long term (current) use of oral hypoglycemic drugs; Z85.3 Personal history of malignant neoplasm of breast; Z98.890 Other specified postprocedural states
CPT/HCPCS: 36415; 70544; 70549; 70553; 71045; 71275; 80048; 80053; 81001; 82550; 82607; 82746; 82962; 83540; 83550; 83605; 83735; 83880; 84145; 84439; 84443; 84484; 85025; 87040; 87086; 87633; 93005; 93306; 94640; 96361; 96365; 96375; 97116; 97162; 97530; 99285; A9579; J0696; J1650; J1940; Q9967

== ENCOUNTER → 2024-08-08 06:49 | Outpatient (CLI) | payer MEDICARE, OTHER, SELFPAY ==
[2024-08-01 04:55] VITALS: BMI 20.1
[2024-08-08 08:16] LABS: Alanine Aminotransferase 30 IU/L (<35); Albumin 4.1 g/dL (3.5-5.0); Albumin Globulin Ratio 1.2 (1.0-2.8); Alkaline Phosphatase 64 U/L (38-126); Aspartate Aminotransferase 33 IU/L (14-36); BUN Creatinine Ratio 20.9 (6-22); Bilirubin Total 0.4 mg/dL (0.2-1.3); Blood Urea Nitrogen 23 mg/dL (7-17); Calcium 10.1 mg/dL (8.4-10.2); Carbon Dioxide 26 mmol/L (22-32); Chloride 102 mmol/L (98-107); Cholesterol 170 mg/dL (140-199); Estimated Glomerular Filt Rate 50 mL/min (>60); Globulin 3.4 g/dL (1.7-4.1); Glucose 100 mg/dL (80-110); HDL Cholesterol 39 mg/dL (40-60); HEMOLYSIS < 15 (0-50); Hemoglobin A1C% w Est Avg Glu 5.8 % (4.0-6.0); LDL Cholesterol Calculated 92 mg/dL (<100); Potassium 4.7 mmol/L (3.4-5.1); Sodium 136 mmol/L (137-145); Total Protein 7.5 g/dL (6.3-8.2); Triglycerides 193 mg/dL (35-150)
[2024-08-08 09:18] LABS: Creatinine Urine Random 18.36 mg/dL
[2024-08-08 09:23] LABS: Microalbumin Urine Random 0.9 mg/dL (0-1.6)
== END ==
PROVIDERS: Family Provider Internal Medicine; PCP Internal Medicine; Referring Provider Internal Medicine; Visit Provider Internal Medicine
DX: E11.9 Type 2 diabetes mellitus without complications (principal); E03.9 Hypothyroidism, unspecified; I10 Essential (primary) hypertension; E78.2 Mixed hyperlipidemia
CPT/HCPCS: 36415; 80053; 80061; 82043; 82570; 83036

== ENCOUNTER → 2024-09-13 07:34 | Outpatient (CLI) | payer MEDICARE, OTHER, SELFPAY ==
[2024-08-01 04:55] VITALS: BMI 20.1
[2024-09-13 08:39] LABS: Add Manual Diff / Slide Review NO; Basophils Absolute Auto 100 /uL (0-100); Basophils Percent Auto 2.4 % (0-2); Eosinophils Absolute Auto 300 /uL (0-450); Eosinophils Percent Auto 5.7 % (2-4); Hematocrit 34.4 % (36-46); Hemoglobin 11.3 g/dL (12.0-16.0); Lymphocytes Absolute Auto 800 /uL (1100-4500); Lymphocytes Percent Auto 18.3 % (25-40); Mean Corpuscular Hemoglobin 28.6 PG (26-34); Mean Corpuscular Volume 86.8 fL (80-100); Monocytes Absolute Auto 500 /uL (0-900); Monocytes Percent Auto 10.4 % (3-14); Neutrophils Absolute Auto 2800 /uL (1500-7000); Neutrophils Percent Auto 63.2 % (50-75); Platelet Count 299 X10^3/uL (150-400); Red Blood Cell Count 3.96 X10^6/uL (4.0-5.2); Red Cell Distribution Width 14.7 % (11.6-14.8); White Blood Cell Count 4.4 X10^3/uL (4.5-11.0)
[2024-09-13 08:49] LABS: HEMOLYSIS < 15 (0-50); Iron 54 ug/dL (37-170)
[2024-09-13 08:51] LABS: Alanine Aminotransferase 26 IU/L (<35); Albumin 4.1 g/dL (3.5-5.0); Albumin Globulin Ratio 1.2 (1.0-2.8); Alkaline Phosphatase 61 U/L (38-126); Aspartate Aminotransferase 30 IU/L (14-36); BUN Creatinine Ratio 20.2 (6-22); Bilirubin Total 0.5 mg/dL (0.2-1.3); Blood Urea Nitrogen 24 mg/dL (7-17); Calcium 9.8 mg/dL (8.4-10.2); Carbon Dioxide 29 mmol/L (22-32); Chloride 101 mmol/L (98-107); Estimated Glomerular Filt Rate 46 mL/min (>60); Globulin 3.3 g/dL (1.7-4.1); Glucose 118 mg/dL (80-110); HEMOLYSIS < 15 (0-50); Potassium 4.4 mmol/L (3.4-5.1); Sodium 136 mmol/L (137-145); Total Protein 7.4 g/dL (6.3-8.2)
[2024-09-13 08:59] LABS: NT-proBNP (BNP-Adult 18+) 1590 pg/mL (<450)
[2024-09-13 09:01] LABS: Percent Iron Saturation 17 % (15-50); Total Iron Binding Capacity 313 ug/dL (265-497); Transferrin 284 mg/dL (206-381)
[2024-09-13 09:08] LABS: Free T3, Triiodothyronine Free 5.13 pg/mL (2.77-5.27); Free T4, Direct Thyroxine 1.84 ng/dL (0.78-2.19)
[2024-09-13 09:21] LABS: Thyroid Stimulating Hormone 3.56 uIU/mL (0.47-4.68)
== END ==
LOC: LAB 07:35
PROVIDERS: Family Provider Internal Medicine; PCP Internal Medicine; Referring Provider Internal Medicine; Visit Provider Internal Medicine
DX: J81.1 Chronic pulmonary edema (principal); E87.1 Hypo-osmolality and hyponatremia; N18.31 Chronic kidney disease, stage 3a; R94.5 Abnormal results of liver function studies; E61.1 Iron deficiency; D64.9 Anemia, unspecified; E03.9 Hypothyroidism, unspecified; I12.9 Hypertensive chronic kidney disease with stage 1 through stage 4 chronic kidney disease, or unspecified chronic kidney disease
CPT/HCPCS: 36415; 80053; 83540; 83550; 83880; 84439; 84443; 84481; 85025

== ENCOUNTER → 2024-12-10 07:08 | Outpatient (CLI) | payer MEDICARE, OTHER, SELFPAY ==
[2024-08-01 04:55] VITALS: BMI 20.1
[2024-12-10 07:57] LABS: Add Manual Diff / Slide Review NO; Basophils Absolute Auto 0 /uL (0-100); Basophils Percent Auto 0.3 % (0-2); Eosinophils Absolute Auto 200 /uL (0-450); Eosinophils Percent Auto 4.8 % (2-4); Hematocrit 35.4 % (36-46); Hemoglobin 12.1 g/dL (12.0-16.0); Lymphocytes Absolute Auto 1000 /uL (1100-4500); Lymphocytes Percent Auto 19.4 % (25-40); Mean Corpuscular HGB Conc 34.1 % (30-36); Mean Corpuscular Hemoglobin 29.3 PG (26-34); Mean Corpuscular Volume 85.9 fL (80-100); Monocytes Absolute Auto 500 /uL (0-900); Monocytes Percent Auto 9.7 % (3-14); Neutrophils Absolute Auto 3500 /uL (1500-7000); Neutrophils Percent Auto 65.8 % (50-75); Platelet Count 271 X10^3/uL (150-400); Red Blood Cell Count 4.12 X10^6/uL (4.0-5.2); Red Cell Distribution Width 13.5 % (11.6-14.8); White Blood Cell Count 5.2 X10^3/uL (4.5-11.0)
[2024-12-10 08:07] LABS: Hemoglobin A1C% w Est Avg Glu 5.8 % (4.0-6.0)
[2024-12-10 08:16] LABS: HEMOLYSIS 19 (0-50); Iron 72 ug/dL (37-170)
[2024-12-10 08:22] LABS: Alanine Aminotransferase 23 IU/L (<35); Albumin 4.5 g/dL (3.5-5.0); Albumin Globulin Ratio 1.6 (1.0-2.8); Alkaline Phosphatase 59 U/L (38-126); Aspartate Aminotransferase 27 IU/L (14-36); BUN Creatinine Ratio 19.3 (6-22); Bilirubin Total 0.6 mg/dL (0.2-1.3); Blood Urea Nitrogen 21 mg/dL (7-17); Calcium 9.9 mg/dL (8.4-10.2); Carbon Dioxide 29 mmol/L (22-32); Chloride 101 mmol/L (98-107); Estimated Glomerular Filt Rate 51 mL/min (>60); Globulin 2.9 g/dL (1.7-4.1); Glucose 103 mg/dL (80-110); HEMOLYSIS < 15 (0-50); Potassium 4.5 mmol/L (3.4-5.1); Sodium 138 mmol/L (137-145); Total Protein 7.4 g/dL (6.3-8.2)
[2024-12-10 08:27] LABS: Percent Iron Saturation 22 % (15-50); Total Iron Binding Capacity 329 ug/dL (265-497); Transferrin 264 mg/dL (206-381)
== END ==
PROVIDERS: Family Provider Internal Medicine; PCP Internal Medicine; Referring Provider Internal Medicine; Visit Provider Internal Medicine
DX: I10 Essential (primary) hypertension (principal); E11.9 Type 2 diabetes mellitus without complications; E78.2 Mixed hyperlipidemia; E03.9 Hypothyroidism, unspecified; D64.9 Anemia, unspecified
CPT/HCPCS: 36415; 80053; 83036; 83540; 83550; 85025

== ENCOUNTER → 2025-01-19 06:39 | Outpatient (CLI) | payer MEDICARE, OTHER, SELFPAY ==
[2024-08-01 04:55] VITALS: BMI 20.1
[2025-01-19 08:14] LABS: Blood Urea Nitrogen 37 mg/dL (7-17); Calcium 10.3 mg/dL (8.4-10.2); Carbon Dioxide 29 mmol/L (22-32); Chloride 100 mmol/L (98-107); Estimated Glomerular Filt Rate 41 mL/min (>60); Glucose 91 mg/dL (70-99); HEMOLYSIS < 15 (0-50); Sodium 138 mmol/L (137-145)
[2025-01-19 08:21] LABS: Potassium 5.5 mmol/L (3.4-5.1)
== END ==
PROVIDERS: Family Provider Internal Medicine; PCP Internal Medicine; Referring Provider Internal Medicine; Visit Provider Internal Medicine
DX: I10 Essential (primary) hypertension (principal)
CPT/HCPCS: 36415; 80048

== ENCOUNTER 2025-02-09 15:04 | Emergency (ER) | payer MEDICARE, OTHER, SELFPAY ==
[2024-08-01 04:55] VITALS: BMI 20.1
[2025-02-09] VITALS (16 sets, daily range): BP systolic 99–145; BP diastolic 49–66; PULSE 80–95; RESP 12–26; TEMP 37.4; O2SAT 92–98; BMI 20.7
--- NOTE | 2025-02-09 15:18 | DI.RAD.S_ITS ---
PROCEDURE: XR CHEST 1V INDICATIONS: suspected sepsis TECHNIQUE: One view of the chest was acquired. COMPARISON: [facility], CR, XR CHEST 1V, 08/01/2024, 0:32. FINDINGS: Surgical changes and devices: Median sternotomy wires and surgical clips are seen. Surgical clips also noted in right axilla. Lungs and pleura: Lungs are clear. No pleural effusions or pneumothorax. Mediastinum: Mediastinal contours appear normal. Heart size is normal. Bones and chest wall: No suspicious bony lesions. Overlying soft tissues appear unremarkable. IMPRESSION: No acute cardiopulmonary pathology. Dictated by: Naeem Rodriguez M.D. on 02/09/2025 at 15:57 Approved by: Naeem Rodriguez M.D. on 02/09/2025 at 15:58
--- NOTE | 2025-02-09 15:31 | ED.FEVER ---
HPI - Fever <Miguel A Granados MD - Last Filed: 04/08/25 00:21> General Chief Complaint: Fever Stated Complaint: Fever, chills, vomiting & lethargic Time Seen by Provider: 02/09/25 15:19 Source: patient Mode of arrival: Ambulatory Limitations: no limitations History of Present Illness HPI Narrative: 79-year-old female patient with a history of type 2 diabetes, hypertension, dyslipidemia, hypothyroidism and breast cancer who presents with fever, chills, nausea and vomiting since 9:00 a.m. this morning. No diarrhea, no cough or URI symptoms. Denies dysuria. She has had no further vomiting since noon. Describes no energy and chills. MD complaint: fever, malaise and weakness Onset (ago): hour(s) Temperature Source: subjective Associated symptoms: denies other symptoms Relieving factors: nothing Exacerbating factors: nothing Related Data Previous Rx's ?Medication ?Instructions ?Recorded post mastectomy bra #2 ea 04/11/21 hyoscyamine sulfate 0.125 mg See Rx Instructions .Route 12/03/23 sublingual tablet .COMPLEX #30 ea atorvastatin 40 mg tablet (Lipitor) 40 mg PO HS #90 tabs 05/26/24 levothyroxine 88 mcg tablet 88 mcg PO DAILY #90 tabs 06/04/24 ondansetron 4 mg disintegrating 4 mg PO Q6H PRN nausea and 06/05/24 tablet vomiting #20 tabs atenolol 50 mg tablet 50 mg PO BID #180 tabs 07/07/24 furosemide 20 mg tablet 20 mg PO DAILY #90 tabs 07/17/24 ferrous sulfate 325 mg (65 mg 325 mg PO DAILY #90 tabs 08/15/24 iron) tablet famciclovir 125 mg tablet 125 mg PO DAILY #90 tabs 08/18/24 metformin 500 mg tablet 1,000 mg (2 x 500 mg) PO BID #360 09/29/24 tabs clobetasol 0.05 % topical cream 1 applic topical .weekly PRN 12/17/24 Vulvar irritation #30 grams estradiol 0.01% (0.1 mg/gram) 1 g vaginal 3XW Vaginal atrophy 12/17/24 vaginal cream #42.5 grams spironolactone 50 mg tablet 50 mg PO DAILY #90 tabs 04/11/25 gabapentin 100 mg capsule 100 mg PO BEDTIME #90 caps 01/05/25 cefuroxime axetil 500 mg tablet 500 mg PO BID #20 tabs 02/09/25 lisinopril 40 mg tablet 40 mg PO DAILY #90 tabs 03/23/25 Allergies Allergy/AdvReac Type Severity Reaction Status Date / Time chlorthalidone AdvReac Severe hyponatremi Verified 02/19/25 09:32 a amlodipine AdvReac Intermediate leg Verified 02/19/25 09:32 swelling levofloxacin (LEVOFLOXACIN) AdvReac Intermediate ITCHY HIVES Verified 02/19/25 09:32 vancomycin (VANCOMYCIN) AdvReac Intermediate RASH/HIVES Verified 02/19/25 09:32 06/25/17 adhesive (ADHESIVE) AdvReac Mild MAYORGA AND Verified 02/19/25 09:32 IRRITATION FROM TAPE oxycodone (OXYCODONE) AdvReac Mild MAKES HER Verified 02/19/25 09:32 SICK Sulfa (Sulfonamide AdvReac Mild RASH Verified 02/19/25 09:32 Antibiotics) (SULFA (SULFONAMIDE ANTIBIOTICS)) Review of Systems <Miguel A Granados MD - Last Filed: 04/08/25 00:21> Review of Systems ROS Unobtainable: All systems reviewed & are unremarkable except as noted in HPI and below Constitutional Constitutional: Reports as per HPI, Reports body ache(s), Reports chills, Reports fatigue, Reports fever(s) and Denies headache(s) Eyes Eyes: Denies change in vision ENT Ears, Nose, Mouth, and Throat: Reports system reviewed and no additional complaints, except as documented, Denies dysphagia, Denies otalgia, Denies headache(s), Denies hoarseness, Denies nasal congestion and Denies sinus pressure Cardiovascular Cardiovascular: Reports system reviewed and no additional complaints, except as documented, Denies chest pain, Denies syncope, Denies leg edema and Denies dyspnea Respiratory Respiratory: Denies chest congestion, Denies cough, Denies excessive phlegm production and Denies dyspnea Gastrointestinal Gastrointestinal: Reports as per HPI, Denies abdominal pain and Denies dysphagia Genitourinary Genitourinary: Reports system reviewed and no additional complaints, except as documented, Denies hematuria, Denies difficulty voiding and Denies dysuria Musculoskeletal Musculoskeletal: Reports as per HPI Neurologic Neurologic: Denies syncope and Denies headache(s) Comments: Mildly increased confusion or slower with thinking according to Endocrine Endocrine: Reports fatigue Hematologic/Lymphatic Hematologic/Lymphatic: Reports system reviewed and no additional complaints, except as documented Patient History <Miguel A Granados MD - Last Filed: 04/08/25 00:21> Medical History (Updated 02/24/25 @ 00:00 by ) Vaginal atrophy Iron deficiency Anemia of chronic disease Pulmonary edema Chronic renal failure, stage 3a Peripheral neuropathy Controlled type 2 diabetes mellitus Cataract (2007) Chicken pox Measles Rubella Eczema (~1950) Diverticular disease (06/2010) Abnormal LFTs (04/21/11) Vulvovaginitis (04/04/17) Type 2 diabetes mellitus with hyperglycemia, without long-term current use of insulin (01/15/17) Personal history of breast cancer (2007) Mixed hyperlipidemia (06/25/15) 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) Irritable bowel syndrome (09/22/14) Lymphedema of upper extremity (07/24/14) Acquired hypothyroidism (12/24/12) Essential hypertension (04/21/11) Surgical History History of cataract surgery (2007) History of colonoscopy (06/2010) Anesthesia History of thyroidectomy (05/1988) Status post hysterectomy (09/09/13) Status post delivery (1969) Status post delivery (1964) History of total mastectomy (11/28/07) Family History Brother Age: 95 Hypertension Child Age: 54 Hypothyroidism Father Coronary atherosclerosis Hypertension High cholesterol Aneurysm Mother Hypertension Liver disease Grandmother Diabetes mellitus Social History marital status: number of children: 2 household members: spouse lives independently: Yes caregiver/support person: No housing: house pets and animals: Yes education level: college occupational status: other 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 [employer]: [employer] travel history: over 6 months ago leisure activities: exercise, reading and other Tobacco: How many years used: 20 Smokeless tobacco user: other quit status: quit date established second hand exposure: Yes alcohol intake: current substance use type: does not use alcohol intake frequency: holidays/special occasions only Exam <Miguel A Granados MD - Last Filed: 04/08/25 00:21> Initial Vital Signs Initial Vital Signs: Vital Signs Temperature 99.3 F 02/09/25 15:10 Pulse Rate 95 H 02/09/25 15:10 Respiratory Rate 18 02/09/25 15:10 Blood Pressure 145/66 H 02/09/25 15:10 Pulse Oximetry 98 02/09/25 15:10 Oxygen Delivery Method Room Air 02/09/25 15:10 Const General: cooperative, healthy appearing and comfortable Nutritional Appearance: well nourished [facility] Head: normal to inspection and normocephalic Ears: hearing grossly normal bilaterally, external ears normal and TM's normal bilaterally Nose: external nose normal and nasal mucous membranes and turbinates normal Face and sinus: normal facial exam and sinuses nontender Mouth: oral mucosae normal Throat: posterior oropharynx normal Eyes Conjunctivae: conjunctivae normal Pupils: PERRL EOM: EOM intact bilaterally Neck Neck: normal visual inspection, full ROM and no meningeal signs Chest Chest: normal inspection of the chest Resp Effort & Inspection: normal respiratory effort and able to speak in complete sentences Auscultation: clear to auscultation bilaterally Cardio Rate: regular rate Rhythm: regular rhythm GI Inspection: normal to inspection Palpation: soft Auscultation: normal bowel sounds Back/Spine/Pelvis Back: normal to inspection Skin General: no rashes or lesions noted Extrem Other: Right upper extremity with warmth, erythema and swelling/lymphedema. <Song Garza MD - Last Filed: 02/10/25 00:48> Initial Vital Signs Initial Vital Signs: Vital Signs Temperature 99.3 F 02/09/25 15:10 Pulse Rate 95 H 02/09/25 15:10 Respiratory Rate 18 02/09/25 15:10 Blood Pressure 145/66 H 02/09/25 15:10 Pulse Oximetry 98 02/09/25 15:10 Oxygen Delivery Method Room Air 02/09/25 15:10 Course <Miguel A Granados MD - Last Filed: 04/08/25 00:21> Orders Ordered: Discontinued Medications Sodium Chloride (Normal Saline 0.9%) 1,000 mls @ 1,000 mls/hr IV BOLUS ONE Stop: 02/09/25 16:16 Last Infusion: 02/09/25 18:16 Dose: Infused Documented By: Admin: 02/09/25 16:02 Dose: 1,000 mls/hr Documented By: Ceftriaxone Sodium 1,000 mg/ (Sodium Chloride) 100 mls @ 200 mls/hr IV NOW ONE Stop: 02/09/25 19:57 Last Infusion: 02/09/25 20:53 Dose: Infused Documented By: Admin: 02/09/25 20:12 Dose: 200 mls/hr Documented By: Sodium Chloride (Normal Saline 0.9%) 1,000 mls @ 1,000 mls/hr IV BOLUS ONE Stop: 02/09/25 21:25 Last Admin: 02/09/25 20:58 Dose: Not Given Documented By: Ondansetron HCl (Ondansetron 4 Mg/2 Ml Inj) 4 mg IV NOW PRN PRN Reason: Nausea And Vomiting Ondansetron HCl (Ondansetron 4 Mg Odt) 4 mg PO NOW PRN PRN Reason: Nausea And Vomiting Vital Signs Vital signs: Vital Signs - 8 hr 02/09/25 17:00 02/09/25 17:00 02/09/25 17:30 Pulse Rate 85 83 Respiratory Rate 25 H 18 Blood Pressure 117/57 L Pulse Oximetry 96 94 Oxygen Delivery Method 02/09/25 17:30 02/09/25 18:00 02/09/25 18:01 Pulse Rate 85 Respiratory Rate 18 Blood Pressure 114/55 L 99/62 Pulse Oximetry 96 Oxygen Delivery Method 02/09/25 18:01 02/09/25 18:30 02/09/25 18:30 Pulse Rate 85 81 Respiratory Rate 19 19 Blood Pressure 105/51 L Pulse Oximetry 96 92 Oxygen Delivery Method 02/09/25 19:00 02/09/25 19:00 02/09/25 19:30 Pulse Rate 84 82 Respiratory Rate 21 22 Blood Pressure 115/55 L Pulse Oximetry 94 92 Oxygen Delivery Method Room Air 02/09/25 19:30 02/09/25 20:00 02/09/25 20:00 Pulse Rate 82 Respiratory Rate 26 H Blood Pressure 105/52 L 108/53 L Pulse Oximetry 94 Oxygen Delivery Method 02/09/25 20:30 02/09/25 20:30 02/09/25 21:00 Pulse Rate 81 Respiratory Rate 23 Blood Pressure 121/56 L 114/57 L Pulse Oximetry 94 Oxygen Delivery Method 02/09/25 21:00 Pulse Rate 80 Respiratory Rate 25 H Blood Pressure Pulse Oximetry 95 Oxygen Delivery Method <Song Garza MD - Last Filed: 02/10/25 00:48> Orders Ordered: Discontinued Medications Sodium Chloride (Normal Saline 0.9%) 1,000 mls @ 1,000 mls/hr IV BOLUS ONE Stop: 02/09/25 16:16 Last Infusion: 02/09/25 18:16 Dose: Infused Documented By: Admin: 02/09/25 16:02 Dose: 1,000 mls/hr Documented By: Ceftriaxone Sodium 1,000 mg/ (Sodium Chloride) 100 mls @ 200 mls/hr IV NOW ONE Stop: 02/09/25 19:57 Last Infusion: 02/09/25 20:53 Dose: Infused Documented By: Admin: 02/09/25 20:12 Dose: 200 mls/hr Documented By: Sodium Chloride (Normal Saline 0.9%) 1,000 mls @ 1,000 mls/hr IV BOLUS ONE Stop: 02/09/25 21:25 Last Admin: 02/09/25 20:58 Dose: Not Given Documented By: Ondansetron HCl (Ondansetron 4 Mg/2 Ml Inj) 4 mg IV NOW PRN PRN Reason: Nausea And Vomiting Ondansetron HCl (Ondansetron 4 Mg Odt) 4 mg PO NOW PRN PRN Reason: Nausea And Vomiting Vital Signs Vital signs: Vital Signs - 8 hr 02/09/25 17:00 02/09/25 17:00 02/09/25 17:30 Pulse Rate 85 83 Respiratory Rate 25 H 18 Blood Pressure 117/57 L Pulse Oximetry 96 94 Oxygen Delivery Method 02/09/25 17:30 02/09/25 18:00 02/09/25 18:01 Pulse Rate 85 Respiratory Rate 18 Blood Pressure 114/55 L 99/62 Pulse Oximetry 96 Oxygen Delivery Method 02/09/25 18:01 02/09/25 18:30 02/09/25 18:30 Pulse Rate 85 81 Respiratory Rate 19 19 Blood Pressure 105/51 L Pulse Oximetry 96 92 Oxygen Delivery Method 02/09/25 19:00 02/09/25 19:00 02/09/25 19:30 Pulse Rate 84 82 Respiratory Rate 21 22 Blood Pressure 115/55 L Pulse Oximetry 94 92 Oxygen Delivery Method Room Air 02/09/25 19:30 02/09/25 20:00 02/09/25 20:00 Pulse Rate 82 Respiratory Rate 26 H Blood Pressure 105/52 L 108/53 L Pulse Oximetry 94 Oxygen Delivery Method 02/09/25 20:30 02/09/25 20:30 02/09/25 21:00 Pulse Rate 81 Respiratory Rate 23 Blood Pressure 121/56 L 114/57 L Pulse Oximetry 94 Oxygen Delivery Method 02/09/25 21:00 Pulse Rate 80 Respiratory Rate 25 H Blood Pressure Pulse Oximetry 95 Oxygen Delivery Method MDM - Fever <Miguel A Granados MD - Last Filed: 04/08/25 00:21> Differential Diagnosis Differential diagnosis: Likely cellulitis, fever of unknown origin, pyelonephritis, viral infection and sepsis Condition is at treatment goal?: No Medical Records Attestation: I reviewed the patient's medical records. Lab Data Attestation: I reviewed the patient's lab results. 02/09/25 15:30 02/09/25 15:30 Labs: Lab Results 02/09/25 02/09/25 Range/Units 15:30 16:10 WBC 13.5 H (4.5-11.0) X10^3/uL RBC 3.79 L (4.0-5.2) X10^6/uL Hgb 11.3 L (12.0-16.0) g/dL Hct 33.0 L (36-46) % MCV 87.2 (80-100) fL MCH 29.8 (26-34) PG MCHC 34.2 (30-36) % RDW 13.8 (11.6-14.8) % Plt Count 211 (150-400) X10^3/uL Neut % (Auto) 91.9 H (50-75) % Lymph % (Auto) 4.1 L (25-40) % [place] % (Auto) 3.4 (3-14) % Eos % (Auto) 0.3 L (2-4) % Baso % (Auto) 0.3 (0-2) % Neut # (Auto) 14139 H (3457-0387) /uL Lymph # (Auto) 600 L (1804-0650) /uL [place] # (Auto) 500 (0-900) /uL Eos # (Auto) 0 (0-450) /uL Baso # (Auto) 0 (0-100) /uL PT 11.2 (9.4-12.5) SECONDS INR 1.0 (0.9-1.3) APTT 18 L (25.1-36.5) SECONDS Sodium 132 L (137-145) mmol/L Potassium 4.6 (3.4-5.1) mmol/L Chloride 96 L (98-107) mmol/L Carbon Dioxide 25 (22-32) mmol/L BUN 28 H (7-17) mg/dL Creatinine 1.44 H (0.52-1.04) mg/dL Estimated GFR 37 L (>60) mL/min BUN/Creatinine Ratio 19.4 (6-22) Glucose 117 H (70-99) mg/dL Lactate 1.6 (0.7-2.1) mmol/L Calcium 9.4 (8.4-10.2) mg/dL Total Bilirubin 0.7 (0.2-1.3) mg/dL AST 33 (14-36) IU/L ALT 23 (<35) IU/L Alkaline Phosphatase 64 (38-126) U/L Total Protein 8.0 (6.3-8.2) g/dL Albumin 4.7 (3.5-5.0) g/dL Globulin 3.3 (1.7-4.1) g/dL Albumin/Globulin Ratio 1.4 (1.0-2.8) Lipase 88 (23-300) U/L Procalcitonin 0.710 H (<0.5) ng/mL Urine RBC 0-1/hpf (0-5/HPF) Urine WBC 10-30/hpf H (0-5/HPF) Ur Squamous Epith Cells 0-1 /hpf (0-5/HPF) Urine Bacteria Few (2-10) H (None) Ur Culture Indicated? Specimen cultured Vol Urine Centrifuged 10ml (spun) Urine Dip Bedside Urine Glucose Negative Bedside Urine Bilirubin - Negative Bedside Urine Ketone - Negative Urine Specific [place] 1.010 Bedside Urine Occult Blood - Negative Bedside Urine pH 6.0 Bedside Urine Protein - Negative Bedside Urine Urobilinogen - Negative Bedside Urine Nitrite - Negative Bedside Urine Leukocytes +++ 500 Esterase Imaging Data Chest x-ray: My Impression: Portable chest x-ray reveals no acute disease ECG Data Attestation: I personally reviewed and interpreted this ECG as follows: Interpretation: Normal sinus rhythm with a rate of 88. Normal intervals and axis. Nonspecific inferior T-wave flattening. Otherwise no ischemic changes MDM Narrative Medical decision making narrative: Patient with fever, findings of cellulitis in the right upper extremity urinalysis pending. Lactate is negative. Probable source of fever is the right arm cellulitis. Awaiting urinalysis before starting antibiotics. Patient care transferred to Dr. Olguin at the change of shift with urinalysis pending which will be followed by IV antibiotics and probable discharge home versus consideration of admission depending on patient's status at that point <Song Garza MD - Last Filed: 02/10/25 00:48> Lab Data Attestation: I reviewed the patient's lab results. Lab results narrative: White blood cell count 32584, hemoglobin 11.3, platelets adequate. Glucose 117. BUN 28 with creatinine 1.44. Serum CO2 normal 25. Sodium 132 low. Potassium 4.6 normal. Liver functions and lipase normal. Urinalysis with some pyuria, urine culture triggered. Procalcitonin 0.71 elevated. Labs: Lab Results 02/09/25 02/09/25 Range/Units 15:30 16:10 WBC 13.5 H (4.5-11.0) X10^3/uL RBC 3.79 L (4.0-5.2) X10^6/uL Hgb 11.3 L (12.0-16.0) g/dL Hct 33.0 L (36-46) % MCV 87.2 (80-100) fL MCH 29.8 (26-34) PG MCHC 34.2 (30-36) % RDW 13.8 (11.6-14.8) % Plt Count 211 (150-400) X10^3/uL Neut % (Auto) 91.9 H (50-75) % Lymph % (Auto) 4.1 L (25-40) % [place] % (Auto) 3.4 (3-14) % Eos % (Auto) 0.3 L (2-4) % Baso % (Auto) 0.3 (0-2) % Neut # (Auto) 98491 H (9858-7587) /uL Lymph # (Auto) 600 L (6566-5022) /uL [place] # (Auto) 500 (0-900) /uL Eos # (Auto) 0 (0-450) /uL Baso # (Auto) 0 (0-100) /uL PT 11.2 (9.4-12.5) SECONDS INR 1.0 (0.9-1.3) APTT 18 L (25.1-36.5) SECONDS Sodium 132 L (137-145) mmol/L Potassium 4.6 (3.4-5.1) mmol/L Chloride 96 L (98-107) mmol/L Carbon Dioxide 25 (22-32) mmol/L BUN 28 H (7-17) mg/dL Creatinine 1.44 H (0.52-1.04) mg/dL Estimated GFR 37 L (>60) mL/min BUN/Creatinine Ratio 19.4 (6-22) Glucose 117 H (70-99) mg/dL Lactate 1.6 (0.7-2.1) mmol/L Calcium 9.4 (8.4-10.2) mg/dL Total Bilirubin 0.7 (0.2-1.3) mg/dL AST 33 (14-36) IU/L ALT 23 (<35) IU/L Alkaline Phosphatase 64 (38-126) U/L Total Protein 8.0 (6.3-8.2) g/dL Albumin 4.7 (3.5-5.0) g/dL Globulin 3.3 (1.7-4.1) g/dL Albumin/Globulin Ratio 1.4 (1.0-2.8) Lipase 88 (23-300) U/L Procalcitonin 0.710 H (<0.5) ng/mL Urine RBC 0-1/hpf (0-5/HPF) Urine WBC 10-30/hpf H (0-5/HPF) Ur Squamous Epith Cells 0-1 /hpf (0-5/HPF) Urine Bacteria Few (2-10) H (None) Ur Culture Indicated? Specimen cultured Vol Urine Centrifuged 10ml (spun) Urine Dip Bedside Urine Glucose Negative Bedside Urine Bilirubin - Negative Bedside Urine Ketone - Negative Urine Specific [place] 1.010 Bedside Urine Occult Blood - Negative Bedside Urine pH 6.0 Bedside Urine Protein - Negative Bedside Urine Urobilinogen - Negative Bedside Urine Nitrite - Negative Bedside Urine Leukocytes +++ 500 Esterase Imaging Data Chest x-ray: Radiologist's Impression: Close Chest X-Ray (Signed) Naeem Rodriguez - 02/09/25 Launch?Image [address] [address] XRay Report Signed Patient: Stephanie Serra MR#: [id number] : 1945 Acct:[id number] Age/Sex: 79 / F Date of Service: 02/09/25 Loc: ED Accession Number: [id number] Procedure: XR chest 1V Ordering Provider: Parris Olguin MD PROCEDURE: XR CHEST 1V INDICATIONS: suspected sepsis TECHNIQUE: One view of the chest was acquired. COMPARISON: [facility], , XR CHEST 1V, 08/01/2024, 0:32. FINDINGS: Surgical changes and devices: Median sternotomy wires and surgical clips are seen. Surgical clips also noted in right axilla. Lungs and pleura: Lungs are clear. No pleural effusions or pneumothorax. Mediastinum: Mediastinal contours appear normal. Heart size is normal. Bones and chest wall: No suspicious bony lesions. Overlying soft tissues appear unremarkable. IMPRESSION: No acute cardiopulmonary pathology. Dictated by: Naeem Rodriguez M.D. on 02/09/2025 at 15:57 Approved by: Naeem Rodriguez M.D. on 02/09/2025 at 15:58 MDM Narrative Medical decision making narrative: Patient with fever, findings of cellulitis in the right upper extremity urinalysis pending. Lactate is negative. Probable source of fever is the right arm cellulitis. Awaiting urinalysis before starting antibiotics. Patient care transferred to Dr. Olguin at the change of shift with urinalysis pending which will be followed by IV antibiotics and probable discharge home versus consideration of admission depending on patient's status at that point 02/09/25, Greg Lutz. Signout from Dr Olguin, who had signout from Dr Granados. 79-year-old female with arm cellulitis, urinalysis pending before starting antibiotics. No antibiotics this far given. UA pending. Chest x-ray negative. Elevated procalcitonin noted. She has had numerous previous episodes of arm cellulitis, no DVTs in the past, this feels typical in her right forearm, with some nontraumatic swelling and warmth. Assumed care. Initial labs: White blood cell count 26760, hemoglobin 11.3, platelets adequate. Glucose 117. BUN 28 with creatinine 1.44. Serum CO2 normal 25. Sodium 132 low. Potassium 4.6 normal. Liver functions and lipase normal. Urinalysis with some pyuria, urine culture triggered. Procalcitonin 0.71 elevated. Lactate 1.6 normal. Blood cultures sent prior. We will give IV ceftriaxone which hopefully will provide urinary tract coverage and cellulitis coverage. Elderly female with recurrent cellulitis arm, also with possible urine infection, elevated white blood cell count and procalcitonin. Systolic blood pressure 108, no tachycardia. Consider admission. Patient agreeable. PCP [facility], we will contact cross cover provider. 2030, Case discussed with cross cover physician Dr. Awan, who suggests a trial of outpatient antibiotics, agrees with ceftriaxone, consider Ceftin for discharge to provide coverage for UTI and for cellulitis. Discharge Plan Departure Patient Disposition: Home Clinical Impression: Urinary tract infection, Cellulitis of arm, right Instructions: DI for Cellulitis -- Adult, DI for Urinary Tract Infection (UTI) Activity Restrictions/Additional Instructions: Suspected urine infection, urine cultures pending. Also recurrent right arm cellulitis, warmth to the forearm. IV ceftriaxone given in the emergency department. Case was discussed with on-call physician Dr. Awan who suggested trial of outpatient treatment for now, since you had not been taking any oral treatments so far. Prescription for Ceftin/cefuroxime antibiotic sent to your pharmacy, take antibiotic as directed. Follow up later this week with your regular primary care provider Dr. Camarena. Return earlier to this/nearest emergency department for any change worsening symptoms or any concerns prior. Prescriptions: New cefuroxime axetil 500 mg tablet 500 mg PO BID Qty: 20 0RF No Action hyoscyamine sulfate 0.125 mg tablet, sublingual See Rx Instructions .ROUTE .COMPLEX Qty: 30 4RF Dose Instruction: TAKE 1 TABLET BY MOUTH CHEWED AND DISSOLVED UP TO EVERY 4 HOURS NEEDED FOR ABD PAIN Rx Instructions: TAKE 1 TABLET BY MOUTH CHEWED AND DISSOLVED UP TO EVERY 4 HOURS NEEDED FOR ABD PAIN atorvastatin [Lipitor] 40 mg tablet 40 mg PO HS Qty: 90 3RF levothyroxine 88 mcg tablet 88 mcg PO DAILY Qty: 90 3RF atenolol 50 mg tablet 50 mg PO BID Qty: 180 3RF famciclovir 125 mg tablet 125 mg PO DAILY Qty: 90 3RF Patient Comments: as needed metformin 500 mg tablet 1,000 mg PO BID Qty: 360 3RF gabapentin 100 mg capsule 100 mg PO BEDTIME Qty: 90 3RF lisinopril 40 mg tablet 40 mg PO DAILY Qty: 90 3RF ondansetron 4 mg tablet,disintegrating 4 mg PO Q6H PRN (Reason: nausea and vomiting) Qty: 20 0RF furosemide 20 mg tablet 20 mg PO DAILY Qty: 90 3RF (DME) post mastectomy bra See Rx Instructions .Route .MEDSUPPLY Qty: 2 0RF Rx Instructions: As directed ferrous sulfate 325 mg (65 mg iron) tablet 325 mg PO DAILY Qty: 90 3RF clobetasol 0.05 % cream 1 applic topical .weekly PRN (Reason: Vulvar irritation) Qty: 30 6RF estradiol 0.01 % (0.1 mg/gram) cream 1 g vaginal 3XW Qty: 42.5 2RF spironolactone 50 mg tablet 50 mg PO DAILY Qty: 90 3RF Referrals: Jatin Camarena MD [Primary Care Provider] Stand Alone Forms: Patient Portal/API/Survey
--- NOTE | 2025-02-09 15:46 | EKG_ITS ---
[facility] [address] [place] [address] Test Date: 2025-02-09 Pat Name: Stephanie Serra Department: [facility] Room: Gender: Female Dental Hygienist: GILBERTO : 1945 Requested By: Order Number: [id number] Reading MD: Prasanna Medina Measurements Intervals [place] Rate: 88 P: 18 SD: 188 QRS: 48 QRSD: 92 T: 28 QT: 342 QTc: 413 Interpretive Statements Normal sinus rhythm Nonspecific ST abnormality Electronically Signed On 02-12-2025 17:10:46 PDT by Prasanna Medina
[2025-02-09 15:51] LABS: Hemoglobin 11.3 g/dL (12.0-16.0); Lymphocytes Absolute Auto 600 /uL (1100-4500); Lymphocytes Percent Auto 4.1 % (25-40); Monocytes Absolute Auto 500 /uL (0-900)
[2025-02-09 15:54] LABS: Prothrombin Time 11.2 SECONDS (9.4-12.5)
[2025-02-09 15:57] LABS: PTT Partial Thromboplastin Tim 18 SECONDS (25.1-36.5)
[2025-02-09 15:58] LABS: Add Manual Diff / Slide Review NO; Alanine Aminotransferase 23 IU/L (<35); Albumin 4.7 g/dL (3.5-5.0); Albumin Globulin Ratio 1.4 (1.0-2.8); Alkaline Phosphatase 64 U/L (38-126); Aspartate Aminotransferase 33 IU/L (14-36); BUN Creatinine Ratio 19.4 (6-22); Basophils Absolute Auto 0 /uL (0-100); Basophils Percent Auto 0.3 % (0-2); Bilirubin Total 0.7 mg/dL (0.2-1.3); Blood Urea Nitrogen 28 mg/dL (7-17); Calcium 9.4 mg/dL (8.4-10.2); Carbon Dioxide 25 mmol/L (22-32); Chloride 96 mmol/L (98-107); Eosinophils Absolute Auto 0 /uL (0-450); Eosinophils Percent Auto 0.3 % (2-4); Estimated Glomerular Filt Rate 37 mL/min (>60); Globulin 3.3 g/dL (1.7-4.1); Glucose 117 mg/dL (70-99); HEMOLYSIS < 15 (0-50); Lactate (Lactic Acid) 1.6 mmol/L (0.7-2.1); Lipase 88 U/L (23-300); Mean Corpuscular HGB Conc 34.2 % (30-36); Mean Corpuscular Hemoglobin 29.8 PG (26-34); Mean Corpuscular Volume 87.2 fL (80-100); Monocytes Percent Auto 3.4 % (3-14); Neutrophils Absolute Auto 12400 /uL (1500-7000); Neutrophils Percent Auto 91.9 % (50-75); Platelet Count 211 X10^3/uL (150-400); Potassium 4.6 mmol/L (3.4-5.1); Red Blood Cell Count 3.79 X10^6/uL (4.0-5.2); Red Cell Distribution Width 13.8 % (11.6-14.8); Sodium 132 mmol/L (137-145); White Blood Cell Count 13.5 X10^3/uL (4.5-11.0)
--- NOTE | 2025-02-09 15:58 | PC.NURSE ---
Assuming care of patient at this time.
[2025-02-09] MEDS: SODIUM CHLORIDE 0.9% 1,000 ML 1000 ML IV (16:02)
[2025-02-09 16:48] LABS: Bacteria Urine Few (2-10); Culture Indicated Urine Specimen Cultured; RBC Urine 0-1/HPF (0-5/HPF); Squamous Epithelial Cell Urine 0-1 /HPF (0-5/HPF); Urine Volume 10mL (spun); WBC Urine 10-30/HPF (0-5/HPF)
[2025-02-09] MEDS: cefTRIAXone 1,000 MG in SODIUM CHLORIDE 0.9% 100 ML 200 MG IV (20:12)
== END 2025-02-09 21:15 | disposition home or self-care (01) ==
PROVIDERS: Emergency Medicine; Student in an Organized Health Care Education/Training Program; Emergency Provider Emergency Medicine; Family Provider Internal Medicine; PCP Internal Medicine
DX: N39.0 Urinary tract infection, site not specified (principal); L03.113 Cellulitis of right upper limb; R11.2 Nausea with vomiting, unspecified
CPT/HCPCS: 36415; 71045; 80053; 81003; 81015; 83605; 83690; 84145; 85025; 85610; 85730; 87040; 87086; 93005; 96361; 96365; 99284; J0696

== ENCOUNTER → 2025-06-03 13:05 | Outpatient (CLI) | payer MEDICARE, OTHER, SELFPAY ==
[2024-08-01 04:55] VITALS: BMI 20.1
--- NOTE | 2025-06-03 13:08 | DI.NM.S_ITS ---
PROCEDURE: NM AUGUSTINA PERF SPECT REST & STR Rest and exercise myocardial perfusion SPECT with gated imaging and ejection fraction RADIOPHARMACEUTICAL: 26.1 mCi Tc-99m sestamibi IV at rest and 25.8 mCi Tc-99m sestamibi IV at peak exercise. A 2day-protocol was performed. INDICATIONS: RAMEY TECHNIQUE: Radiopharmaceutical was injected at peak stress test, and also at rest. SPECT images were obtained. SPECT myocardial perfusion images were displayed in short axis, horizontal long axis, and vertical long axis views. Gated images were reviewed using [employer] software. COMPARISON: None. CARDIAC STRESS: A standard Philipp treadmill exercise tolerance test was performed by the patient under the supervision of an attending staff. The patient exercised for 6 minutes and 0 seconds; 6.9 METS; functional aerobic impairment (TIKA) is -23 %. Hemodynamic data: There is normal blood pressure and heart rate response to exercise stress. Patient achieved 89% of maximum predicted heart rate at peak exercise. Peak blood pressure 140/88. Symptoms: Patient reported chest pain during exercise. EK.5-[address] depression II, III, aVF, V4-V6; no ectopy. FINDINGS: Raw data: There is good myocardial labeling by radiotracer. No significant motion artifacts. Hcot-wh-oqbhj ratio is 0.27 (normal is less than 0.38 for sestamibi tracer, and less than 0.50 for thallium tracer). Left ventricle function: Gated images demonstrate normal left ventricle wall thickening. No segmental wall motion abnormality. No transient ischemic dilation; TID is 1.13 (normal less than 1.3). The left ventricle resting end-diastolic volume is 59 mL. Left ventricle stress ejection fraction is >75% ; normal values are above 45%. Myocardial perfusion: There is a medium size, moderate intesnity partially reversible basal to mid inferior wall defect that persists in prone images. IMPRESSION: Abnormal study. 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 Abnormal exercise ECG consistent with ischemia. Normal LV size with hyperdynamic function. Normal hemodynamic response to exercise. Good exercise capacity. Dictated by: Emerita Montanez D.O. on 06/09/2025 at 13:03 Approved by: Emerita Montanez D.O. on 06/09/2025 at 16:04
== END ==
PROVIDERS: PCP Internal Medicine; Referring Provider Internal Medicine; Visit Provider Internal Medicine
DX: R06.09 Other forms of dyspnea (principal); R94.39 Abnormal result of other cardiovascular function study
CPT/HCPCS: 78452; 93017; A9502

== ENCOUNTER → 2025-07-22 07:06 | Outpatient (CLI) | payer MEDICARE, OTHER, SELFPAY ==
[2024-08-01 04:55] VITALS: BMI 20.1
[2025-07-22 07:57] LABS: Hemoglobin A1C% w Est Avg Glu 6.2 % (4.0-6.0)
[2025-07-22 08:57] LABS: Blood Urea Nitrogen 35 mg/dL (7-17); Calcium 9.9 mg/dL (8.4-10.2); Carbon Dioxide 26 mmol/L (22-32); Chloride 100 mmol/L (98-107); Estimated Glomerular Filt Rate 37 mL/min (>60); Glucose 102 mg/dL (70-99); HEMOLYSIS < 15 (0-50); Potassium 5.3 mmol/L (3.4-5.1); Sodium 141 mmol/L (137-145)
[2025-07-22 09:12] LABS: Free T4, Direct Thyroxine 1.71 ng/dL (0.78-2.19)
[2025-07-22 09:26] LABS: Thyroid Stimulating Hormone 4.27 uIU/mL (0.47-4.68)
== END ==
PROVIDERS: PCP Internal Medicine; Referring Provider Internal Medicine; Visit Provider Internal Medicine
DX: E11.9 Type 2 diabetes mellitus without complications (principal); E78.2 Mixed hyperlipidemia; E03.9 Hypothyroidism, unspecified
CPT/HCPCS: 36415; 80048; 83036; 84439; 84443